=== PATIENT | male | born 1925 | race Caucasian/White ===

== ENCOUNTER 2016-10-28 09:28 | Emergency (ER) | payer MEDICARE, OTHER ==
[~2016-10-28] VITALS: Ht 152.4 cm; Wt 67.0 kg
[~2016-10-28 09:28] MED LIST: COUM1TAB PO; DILA100C PO; LISI-360 PO; OMEP20TA PO; SIMV40TA PO
[2016-10-28 09:36] VITALS: BP 134/87; PULSE 85; RESP 18; TEMP 97.8; O2SAT 97
[2016-10-28] MEDS ORDERED: SODIUM CHLORIDE 0.9% FLUSH 5 ML FLUSH IVF PRN (09:45)
[2016-10-28] MEDS ORDERED: LISI10TA3 PO (09:49)
[2016-10-28] MEDS ORDERED: COUM4TAB PO (09:50)
[2016-10-28] MEDS ORDERED: ZOCO40TA PO (09:50)
[2016-10-28] MEDS ORDERED: DILA100C PO (09:50)
[2016-10-28] MEDS ORDERED: OMEP20TA PO (09:50)
--- NOTE | 2016-10-28 10:19 | RADHPO ---
EXAM DATE/TIME: 10/28/2016 09:59 [facility] COMPARISON: No previous studies available for comparison. INDICATIONS : Proximal left humerus pain post fall. MEDICAL HISTORY : Carcinoma, colon. Hypertension. Seizures. Hernia. Ulcer. Diverticulitis. GERD. Arthritis. SURGICAL HISTORY : Tonsillectomy. Pacemaker. Cholecystectomy. Appendectomy. Partial gastrectomy. Cardiac catheterization . ENCOUNTER: Initial ACUITY: 4 - 6 days PAIN SCORE: 3/10 LOCATION: Left proximal humerus FINDINGS: Two view examination of the left humerus demonstrates no evidence of fracture or dislocation. Bony m ineralization is normal. The soft tissue structures are intact. There is chronic deformity of the le ft sixth rib. CONCLUSION: No acute fracture or dislocation. Luis Manuel Slaughter MD on October 28, 2016 at 10:16 Board Certified Radiologist. This report was verified electronically.
[2016-10-28 10:28] LABS: AUTOMATED NEUTROPHIL # 2.8 TH/MM3 (1.8-7.7); BASOPHIL % 0.7 % (0.0-2.0); EOSINOPHIL # 0.5 TH/MM3 (0-0.4); EOSINOPHIL % 11.9 % (0.0-4.0); HEMATOCRIT 38.1 % (39.0-51.0); HEMO FLAGS DIFF FINAL; LYMPH % 20.3 % (9.0-44.0); LYMPHOCYTE # 0.9 TH/MM3 (1.0-4.8); MEAN CELL VOLUME 95.9 FL (80.0-100.0); MEAN CORPUSCULAR HEMOGLOBIN 32.5 PG (27.0-34.0); MEAN CORPUSCULAR HGB CONC 33.9 % (32.0-36.0); MONO % 9.8 % (0.0-8.0); NEUT % 57.3 % (16.0-70.0); PLATELET COUNT 165 TH/MM3 (150-450); RED BLOOD COUNT 3.98 MIL/MM3 (4.50-5.90); RED CELL DISTRIBUTION WIDTH 13.3 % (11.6-17.2); WHITE BLOOD COUNT 4.6 TH/MM3 (4.0-11.0)
--- NOTE | 2016-10-28 10:28 | RADHPO ---
EXAM DATE/TIME: 10/28/2016 10:07 [facility] COMPARISON: CT BRAIN W/O CONTRAST, December 28, 2015, 12:02. INDICATIONS : Fell and hit chin area. RADIATION DOSE: 59.57 CTDIvol (mGy) MEDICAL HISTORY : Cardiovascular disease. Hypertension. SURGICAL HISTORY : Tonsillectomy. Pacemaker. ENCOUNTER: Initial ACUITY: 4 - 6 days PAIN SCALE: 3/10 LOCATION: cranial TECHNIQUE: Multiple contiguous axial images were obtained of the head. Using automated exposure control and adj ustment of the mA and/or kV according to patient size, radiation dose was kept as low as reasonably a chievable to obtain optimal diagnostic quality images. FINDINGS: CEREBRUM: The ventricles are normal for age. No evidence of midline shift, mass lesion, hemorrhage or acute in farction. No extra-axial fluid collections are seen. POSTERIOR FOSSA: The cerebellum and brainstem are intact. The 4th ventricle is midline. The cerebellopontine angle i s unremarkable. EXTRACRANIAL: The visualized portion of the orbits is intact. SKULL: The calvaria is intact. No evidence of skull fracture. CONCLUSION: Normal examination. Thomas Sharma MD on October 28, 2016 at 10:27 Board Certified Radiologist. This report was verified electronically.
--- NOTE | 2016-10-28 10:30 | PD ---
HPI Chief Complaint: Fall Time Seen by Provider: 09:39 Travel History International Travel<30 days: No Contact w/Intl Traveler<30days: No Traveled to known affect area: No History of Present Illness HPI 89-year-old male presents status post trip and fall on Thursday night at 10 PM when he was trying to find his car. He states that he hit his left shoulder, chin and head but did not lose consciousness. He states he still has pain to those areas. He states he is on a blood thinner and thinks it's Coumadin but is not sure. He denies other concurrent complaints. Pain is worse with movement. Severity is moderate. Quality no loss of consciousness. This was from standing position. 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 THINGS) Diminished Hearing: No Diverticulitis: Yes Endocrine: No Gastrointestinal Disorders: Yes (?HERNIA L SIDE OF ABD) GERD: Yes Genitourinary: No Hiatal Hernia: No Hypertension: Yes Immune Disorder: No Implanted Vascular Access Dvce: Yes Kidney Stones: No Musculoskeletal: No Neurologic: Yes (seizure) Psychiatric: No Reproductive: No Respiratory: No Immunizations Current: Yes Migraines: No Radiation Therapy: No Renal Failure: No Seizures: Yes Sickle Cell Disease: No Sleep Apnea: No Ulcer: Yes Past Surgical History Abdominal Surgery: Yes (partial gastrectomy) AICD: No Appendectomy: Yes Arteriovenous Shunt: No Cardiac Surgery: Yes (Pacemaker) Cholecystectomy: Yes Ear Surgery: No Endocrine Surgery: No Eye Surgery: Yes (Cataract surgery) Genitourinary Surgery: No Gynecologic Surgery: No Insulin Pump: No Joint Replacement: No Oral Surgery: No Pacemaker: Yes Thoracic Surgery: No Tonsillectomy: Yes Other Surgery: Yes Social History Alcohol Use: No Tobacco Use: No (FORMER) Substance Use: No Allergies-Medications (Allergen,Severity, Reaction): Coded Allergies: Phenergan (Verified Allergy, Unknown, Unknown, 10/28/16) Reported Meds & Prescriptions Reported Meds & Active Scripts Active Reported Coumadin (Warfarin) 4 Mg Tab 4 Mg PO DAILY Zocor (Simvastatin) 40 Mg Tab 40 Mg PO DAILY Dilantin (Phenytoin Extended) 100 Mg Cap 200 Mg PO BID Omeprazole 20 Mg Tab 20 Mg PO DAILY Lisinopril 10 Mg Tab 10 Mg PO DAILY Review of Systems Except as stated in HPI: all other systems reviewed are Neg Physical Exam Narrative General: 89 y/o patient in no apparent distress Skin: trauma noted to left shoulder area with ecchymosis, abrasion to chin Eyes: Pupils equal ENT: no septal hematoma NECK: no pain with palpation and range of motion in midline Cardiovascular: Regular rate and rhythm Respiratory: Normal respiratory effort noted, clear to auscultation bilaterally Abdomen: soft, nontender, nondistended Back: No step-offs, midline spine nontender with palpation Extremities: Pain with palpation of left shoulder, no lacerations over, neurovascularly intact, no pain with rom of other joints Neuro: awake, alert, sensation and motor grossly intact Data Data Last Documented VS Vital Signs Date Time Temp Pulse Resp B/P Pulse Ox O2 Delivery O2 Flow Rate FiO2 10/28/16 12:10 81 17 100/69 93 Room Air 10/28/16 09:36 97.8 Orders Humerus (Min 2vws) (10/28/16 ) Complete Blood Count With Diff (10/28/16 09:45) Prothrombin Time / Inr (Pt) (10/28/16 09:45) Act Partial Throm Time (Ptt) (10/28/16 09:45) Ct Brain W/O Iv Contrast(Rout) (10/28/16 09:45) Ct Facial Bones W/O Iv Cont (10/28/16 09:45) Iv Access Insert/Monitor (10/28/16 09:45) Sodium Chloride 0.9% Flush (Ns Flush) (10/28/16 09:45) Chest, Single Ap (10/28/16 ) Labs Laboratory Tests Test 10/28/16 10:23 White Blood Count 4.6 TH/MM3 Red Blood Count 3.98 MIL/MM3 Hemoglobin 12.9 GM/DL Hematocrit 38.1 % Mean Corpuscular Volume 95.9 FL Mean Corpuscular Hemoglobin 32.5 PG Mean Corpuscular Hemoglobin 33.9 % Concent Red Cell Distribution Width 13.3 % Platelet Count 165 TH/MM3 Mean Platelet Volume 6.8 FL Neutrophils (%) (Auto) 57.3 % Lymphocytes (%) (Auto) 20.3 % Monocytes (%) (Auto) 9.8 % Eosinophils (%) (Auto) 11.9 % Basophils (%) (Auto) 0.7 % Neutrophils # (Auto) 2.8 TH/MM3 Lymphocytes # (Auto) 0.9 TH/MM3 Monocytes # (Auto) 0.4 TH/MM3 Eosinophils # (Auto) 0.5 TH/MM3 Basophils # (Auto) 0.0 TH/MM3 CBC Comment DIFF FINAL Differential Comment Prothrombin Time 10.7 SEC Prothromb Time International 1.0 RATIO Ratio Activated Partial 25.8 SEC Thromboplast Time MDM Medical Decision Making Medical Screen Exam Complete: Yes Emergency Medical Condition: Yes Medical Record Reviewed: Yes (past history confirmed) Interpretation(s) CBC & BMP Diagram 10/28/16 10:23 Last [address] 10/28/16 0945 Signed Impressions: Service Date/Time: Friday, October 28, 2016 10:07 - CONCLUSION: Normal examination. Mild sinus disease in the right maxillary sinus Thomas Sharma MD Head CT 10/28/16 0945 Signed Impressions: Service Date/Time: Friday, October 28, 2016 10:07 - CONCLUSION: Normal examination. Thomas Sharma MD Humerus X-Ray 10/28/16 0000 Signed Impressions: Service Date/Time: Friday, October 28, 2016 09:59 - CONCLUSION: No acute fracture or dislocation. Luis Manuel Slaughter MD Chest X-Ray 10/28/16 0000 Signed Impressions: Service Date/Time: Friday, October 28, 2016 11:21 - CONCLUSION: Mild bibasilar atelectasis versus scarring. Luis Manuel Slaughter MD inr is low but states remembers blood thinner is not Coumadin but does not remember the name-advised to discuss this with his primary physician Differential Diagnosis Fracture, strain, sprain Narrative Course Will check hemoglobin and coags given unknown blood thinner and check trauma imaging and reevaluate ed workup no acute, Patient denies any new complaints and states that they are feeling better. Patient happy with care, all questions answered. Patient knows that follow up is incumbent on them and to return to the emergency room immediately if new or worsening symptoms develop. Patient given strict return precautions, vitals reviewed and are normal, agrees to further workup as an outpatient. Diagnosis Primary Impression: Left shoulder strain Qualified Code: S46.912A - Left shoulder strain, initial encounter Additional Impressions: Chin abrasion, non-infected Fall Qualified Code: W19.XXXA - Fall, initial encounter Patient Instructions: General Instructions Additional Instructions: tylenol as needed, follow with primary, return as needed Med/Other Pt SpecificInfo: No Change to Meds Disposition: 01 DISCHARGE HOME Condition: Stable Desire Calhoun MD Oct 28, 2016 10:30
--- NOTE | 2016-10-28 10:34 | RADHPO ---
EXAM DATE/TIME: 10/28/2016 10:07 [facility] COMPARISON: No previous studies available for comparison. INDICATIONS : Fell and hit chin area. RADIATION DOSE: 34.90 CTDIvol (mGy) MEDICAL HISTORY : Cardiovascular disease. Hypertension. SURGICAL HISTORY : Pacemaker. Tonsillectomy. ENCOUNTER: Initial ACUITY: 4 - 6 days PAIN SCORE: 3/10 LOCATION: facial TECHNIQUE: Volumetric scanning of the facial bones was performed. Using automated exposure control and adjustme nt of the mA and/or kV according to patient size, radiation dose was kept as low as reasonably achiev able to obtain optimal diagnostic quality images. FINDINGS: ORBITS: The orbital and infraorbital osseous structures are intact. The retroconal structures have a normal configuration. No radiopaque foreign bodies are seen. NASAL BONE: The nasal bone and maxillary spine are intact ZYGOMATIC ARCHES: Symmetric without evidence of fracture. SINUSES: The maxillary, ethmoid and frontal sinuses are intact. No air-fluid levels seen. Mild mucoperiosteal thickening in multiple sinuses NASAL CAVITY: The nasal septum is intact and midline. The lacrimal ducts are intact. SOFT TISSUES: No radiopaque foreign bodies seen. No soft-tissue swelling is seen. INTRACRANIAL: No intracranial air seen. CRIBIFORM PLATE: Grossly intact. CONCLUSION: Normal examination. Mild sinus disease in the right maxillary sinus Thomas Sharma MD on October 28, 2016 at 10:32 Board Certified Radiologist. This report was verified electronically.
[2016-10-28 10:41] LABS: APTT (PATIENT) 25.8 SEC (24.3-30.1); PROTHROMBIN TIME - PATIENT 10.7 SEC (9.8-11.6)
--- NOTE | 2016-10-28 11:49 | RADHPO ---
EXAM DATE/TIME: 10/28/2016 11:21 [facility] COMPARISON: No previous studies available for comparison. INDICATIONS : Evaluate lung status. Patient fell. MEDICAL HISTORY : Cardiovascular disease. Hypertension. SURGICAL HISTORY : Pacemaker. Tonsillectomy. ENCOUNTER: Initial ACUITY: 4 - 6 days PAIN SCORE: 0/10 LOCATION: Bilateral chest FINDINGS: A single view of the chest demonstrates the lungs to be symmetrically aerated without evidence of mas s, infiltrate or effusion. There is a mild atelectasis versus scarring in the lung bases. There is a chronic deformity involving the left sixth rib. There is no evidence of pneumothorax. Bony structure s are grossly intact. There is a pacemaker overlying the right chest. The cardiomediastinal contours are unremarkable. Osseous structures are intact. CONCLUSION: Mild bibasilar atelectasis versus scarring. Luis Manuel Slaughter MD on October 28, 2016 at 11:47 Board Certified Radiologist. This report was verified electronically.
[2016-10-28 12:10] VITALS: BP 100/69; PULSE 81; RESP 17; O2SAT 93
== END 2016-10-28 12:21 | disposition home or self-care (01) ==
LOC: PHED 09:28
DX: S46.912A Strain of unspecified muscle, fascia and tendon at shoulder and upper arm level, left arm, initial encounter (principal); S00.81XA Abrasion of other part of head, initial encounter; I10 Essential (primary) hypertension; Z79.01 Long term (current) use of anticoagulants; Z86.2 Personal history of diseases of the blood and blood-forming organs and certain disorders involving the immune mechanism; Z87.39 Personal history of other diseases of the musculoskeletal system and connective tissue; Z86.79 Personal history of other diseases of the circulatory system; Z85.038 Personal history of other malignant neoplasm of large intestine; Z87.19 Personal history of other diseases of the digestive system; Z86.69 Personal history of other diseases of the nervous system and sense organs; Z87.891 Personal history of nicotine dependence; W01.0XXA Fall on same level from slipping, tripping and stumbling without subsequent striking against object, initial encounter
CPT/HCPCS: 70450; 70486; 71010; 73060; 85025; 85610; 85730

== ENCOUNTER 2017-03-29 11:59 | Inpatient (IN) | payer OTHER, MEDICARE ==
[2017-03-29] VITALS (8 sets, daily range): BP systolic 120–161; BP diastolic 67–95; PULSE 87–106; RESP 16–20; TEMP 98–100.2; O2SAT 90–95
[~2017-03-29] VITALS: Ht 157.5 cm; Wt 66.8 kg
[~2017-03-29 11:59] MED LIST changes: -COUM1TAB PO; +COUM4TAB PO; -LISI-360 PO; +LISI10TA3 PO; -SIMV40TA PO; +ZOCO40TA PO
[2017-03-29] MEDS ORDERED: SODIUM CHLOR 0.9% 1000 ML INJ 1,000 ML IV SCH (12:02)
--- NOTE | 2017-03-29 12:13 | PD ---
HPI Chief Complaint: GI symptoms Time Seen by Provider: 12:02 Travel History International Travel<30 days: No Contact w/Intl Traveler<30days: No Traveled to known affect area: No History of Present Illness HPI 89-year-old male complaining of abdominal pain with nausea vomiting. Patient states that the symptoms started last night. Patient states the abdominal pain diffuse cramping pain over the abdomen. Patient denies any pain radiation. Patient states that he has intermittent nausea vomiting since last night. Patient denies any diarrhea. Patient denies any dysuria or frequency. Patient complains of abdominal bloating. 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 Patient states that he has history hypertension and history of seizure. Patient also has history of atrial fibrillation, on Coumadin, status post pacemaker placement, partial gastrectomy secondary to bleeding ulcer, chronic anemia, hyperlipidemia and early dementia. On a scale of 1-10 the pain is an 8. 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 THINGS) Diminished Hearing: No Diverticulitis: Yes Endocrine: No Gastrointestinal Disorders: Yes (?HERNIA L SIDE OF ABD) GERD: Yes Genitourinary: No Hiatal Hernia: No Hypertension: Yes Immune Disorder: No Implanted Vascular Access Dvce: Yes Kidney Stones: No Musculoskeletal: No Neurologic: Yes (seizure) Psychiatric: No Reproductive: No Respiratory: No Immunizations Current: Yes Migraines: No Radiation Therapy: No Renal Failure: No Seizures: Yes Sickle Cell Disease: No Sleep Apnea: No Ulcer: Yes Past Surgical History Abdominal Surgery: Yes (partial gastrectomy) AICD: No Appendectomy: Yes Arteriovenous Shunt: No Cardiac Surgery: Yes (Pacemaker) Cholecystectomy: Yes Ear Surgery: No Endocrine Surgery: No Eye Surgery: Yes (Cataract surgery) Genitourinary Surgery: No Gynecologic Surgery: No Insulin Pump: No Joint Replacement: No Oral Surgery: No Pacemaker: Yes Thoracic Surgery: No Tonsillectomy: Yes Other Surgery: Yes Social History Alcohol Use: No Tobacco Use: No (FORMER) Substance Use: No Allergies-Medications (Allergen,Severity, Reaction): Coded Allergies: Phenergan (Verified Allergy, Unknown, Unknown, 03/29/17) Reported Meds & Prescriptions Reported Meds & Active Scripts Active Reported Zocor (Simvastatin) 40 Mg Tab 40 Mg PO DAILY Dilantin (Phenytoin Extended) 100 Mg Cap 200 Mg PO BID Omeprazole 20 Mg Tab 20 Mg PO DAILY Lisinopril 10 Mg Tab 10 Mg PO DAILY Review of Systems General / Constitutional: No: Fever Eyes: No: Visual changes HENT: No: Headaches Cardiovascular: No: Chest Pain or Discomfort Respiratory: No: Shortness of Breath Gastrointestinal: Positive: Nausea, Vomiting, Abdominal Pain Genitourinary: No: Dysuria Musculoskeletal: No: Pain Skin: No Rash Neurologic: No: Weakness Psychiatric: No: Depression Endocrine: No: Polydipsia Hematologic/Lymphatic: No: Easy Bruising Physical Exam Narrative GENERAL: Well-nourished, well-developed patient. SKIN: Focused skin assessment warm/dry. HEAD: Normocephalic. EYES: No scleral icterus. No injection or drainage. NECK: Supple, trachea midline. No JVD or lymphadenopathy. CARDIOVASCULAR: Regular rate and rhythm without murmurs, gallops, or rubs. RESPIRATORY: Breath sounds equal bilaterally. No accessory muscle use. GASTROINTESTINAL: Abdomen mildly distended. Active bowel sounds. Patient has moderate diffuse tenderness over the abdomen. No rebound tenderness. No mass. MUSCULOSKELETAL: No cyanosis, or edema. BACK: Nontender without obvious deformity. No CVA tenderness. Neurologic exam normal. Data Data Last Documented VS Vital Signs Date Time Temp Pulse Resp B/P Pulse Ox O2 Delivery O2 Flow Rate FiO2 03/29/17 13:37 92 16 125/70 94 03/29/17 12:00 98.0 Orders Complete Blood Count With Diff (03/29/17 12:02) Comprehensive Metabolic Panel (03/29/17 12:02) Lipase (03/29/17 12:02) Prothrombin Time / Inr (Pt) (03/29/17 12:02) Act Partial Throm Time (Ptt) (03/29/17 12:02) Urinalysis - C+S If Indicated (03/29/17 12:02) Ct Abd/Pel W Iv Contrast(Rout) (03/29/17 12:02) Iv Access Insert/Monitor (03/29/17 12:02) Ecg Monitoring (03/29/17 12:02) Oximetry (03/29/17 12:02) Morphine Inj (Morphine Inj) (03/29/17 12:15) Ondansetron Inj (Zofran Inj) (03/29/17 12:15) Pantoprazole Inj (Protonix Inj) (03/29/17 12:15) Sodium Chlor 0.9% 1000 Ml Inj (Ns 1000 M (03/29/17 12:02) Electrocardiogram (03/29/17 12:02) Morphine Inj (Morphine Inj) (03/29/17 12:45) Iohexol 350 Inj (Omnipaque 350 Inj) (03/29/17 13:21) Labs Laboratory Tests Test 03/29/17 12:25 White Blood Count 10.2 TH/MM3 Red Blood Count 4.48 MIL/MM3 Hemoglobin 14.5 GM/DL Hematocrit 42.4 % Mean Corpuscular Volume 94.6 FL Mean Corpuscular Hemoglobin 32.4 PG Mean Corpuscular Hemoglobin 34.3 % Concent Red Cell Distribution Width 12.9 % Platelet Count 155 TH/MM3 Mean Platelet Volume 7.9 FL Neutrophils (%) (Auto) 84.9 % Lymphocytes (%) (Auto) 6.7 % Monocytes (%) (Auto) 7.8 % Eosinophils (%) (Auto) 0.3 % Basophils (%) (Auto) 0.3 % Neutrophils # (Auto) 8.7 TH/MM3 Lymphocytes # (Auto) 0.7 TH/MM3 Monocytes # (Auto) 0.8 TH/MM3 Eosinophils # (Auto) 0.0 TH/MM3 Basophils # (Auto) 0.0 TH/MM3 CBC Comment DIFF FINAL Differential Comment Prothrombin Time 10.7 SEC Prothromb Time International 1.0 RATIO Ratio Activated Partial 24.3 SEC Thromboplast Time Sodium Level 140 MEQ/L Potassium Level 4.2 MEQ/L Chloride Level 103 MEQ/L Carbon Dioxide Level 25.4 MEQ/L Anion Gap 12 MEQ/L Blood Urea Nitrogen 33 MG/DL Creatinine 0.80 MG/DL Estimat Glomerular Filtration 91 ML/MIN Rate Random Glucose 174 MG/DL Calcium Level 9.3 MG/DL Total Bilirubin 0.5 MG/DL Aspartate Amino Transf 31 U/L (AST/SGOT) Alanine Aminotransferase 48 U/L (ALT/SGPT) Alkaline Phosphatase 184 U/L Total Protein 8.0 GM/DL Albumin 3.9 GM/DL Lipase 56 U/L MDM Medical Decision Making Medical Screen Exam Complete: Yes Emergency Medical Condition: Yes Interpretation(s) Last Impressions Abdomen/Pelvis CT 03/29/17 1202 Signed Impressions: Service Date/Time: Wednesday, March 29, 2017 13:05 - CONCLUSION: 1. Dilatation of multiple proximal small bowel loops with distal decompression characteristic of a small bowel obstruction. There is some fecalization of small bowel contents proximal to the obstruction. 2. Partial colectomy on the right. Colonic diverticulosis without diverticulitis. 3. Postoperative cholecystectomy with residual biliary ductal dilatation similar to 2016. 4. Patchy airspace disease at the lung bases. Andrae Kay MD 1352 PM. CBC WBC 10.2. Hemoglobin 14.5 hematocrit 42.4. 84 neutrophil. CMP within normal limit. BUN 33. Glucose 174. Alkaline phosphatase 184. Differential Diagnosis Differential diagnosis including gastritis, PUD, pancreatitis, colitis, UTI, pyelonephritis, nephrolithiasis, bowel obstruction. Narrative Course 89-year-old male with abdominal pain, nausea vomiting. Normal saline solution 1 25 cc an hour. Morphine 2 mg IV. Zofran 4 mg IV. Protonix 40 mg IV. Diagnosis Primary Impression: Small bowel obstruction Admitting Information Admitting Physician Requests: Admit Nicholas Workman MD Mar 29, 2017 12:13
[2017-03-29] MEDS ORDERED: MORPHINE SULFATE 4 MG/ML INJ IV PUSH ONE (12:15)
[2017-03-29] MEDS ORDERED: ONDANSETRON HCL 4 MG/2 ML VIAL IVP ONE (12:15)
[2017-03-29] MEDS ORDERED: PANTOPRAZOLE SODIUM 40 MG VIAL IVP ONE (12:15)
[2017-03-29 12:42] LABS: AUTOMATED NEUTROPHIL # 8.7 TH/MM3 (1.8-7.7); BASOPHIL % 0.3 % (0.0-2.0); EOSINOPHIL % 0.3 % (0.0-4.0); HEMATOCRIT 42.4 % (39.0-51.0); HEMO FLAGS DIFF FINAL; LYMPH % 6.7 % (9.0-44.0); LYMPHOCYTE # 0.7 TH/MM3 (1.0-4.8); MEAN CELL VOLUME 94.6 FL (80.0-100.0); MEAN CORPUSCULAR HEMOGLOBIN 32.4 PG (27.0-34.0); MEAN CORPUSCULAR HGB CONC 34.3 % (32.0-36.0); MONO % 7.8 % (0.0-8.0); NEUT % 84.9 % (16.0-70.0); PLATELET COUNT 155 TH/MM3 (150-450); RED BLOOD COUNT 4.48 MIL/MM3 (4.50-5.90); RED CELL DISTRIBUTION WIDTH 12.9 % (11.6-17.2); WHITE BLOOD COUNT 10.2 TH/MM3 (4.0-11.0)
[2017-03-29] MEDS ORDERED: MORPHINE SULFATE 8 MG/ML INJ IV PUSH ONE (12:45)
[2017-03-29 12:53] LABS: CHLORIDE 103 MEQ/L (98-107); POTASSIUM 4.2 MEQ/L (3.5-5.1); SODIUM (NA) 140 MEQ/L (136-145)
[2017-03-29 12:57] LABS: ANION GAP 12 MEQ/L (5-15); BICARBONATE 25.4 MEQ/L (21.0-32.0); BLOOD UREA NITROGEN 33 MG/DL (7-18)
[2017-03-29 12:58] LABS: APTT (PATIENT) 24.3 SEC (24.3-30.1); PROTHROMBIN TIME - PATIENT 10.7 SEC (9.8-11.6)
[2017-03-29 13:00] LABS: ALT (GPT) 48 U/L (12-78); AST (GOT) 31 U/L (15-37); GLOMERULAR FILTRATION RATE 91 ML/MIN (>89)
[2017-03-29 13:01] LABS: TOTAL BILIRUBIN ADULT 0.5 MG/DL (0.2-1.0)
[2017-03-29 13:03] LABS: ALKALINE PHOSPHATASE 184 U/L (45-117)
[2017-03-29] MEDS ORDERED: IOHEXOL 350 MG/ML 10 ML VIAL (for RAD DIAG) IV ONE (13:21)
--- NOTE | 2017-03-29 13:32 | RADRPT ---
EXAM DATE/TIME: 03/29/2017 13:05 [facility] COMPARISON: No previous studies available for comparison. INDICATIONS : Abdominal distention and pain. IV CONTRAST: 85 cc Omnipaque 350 (iohexol) IV ORAL CONTRAST: No oral contrast ingested. RADIATION DOSE: 8.87 CTDIvol (mGy) MEDICAL HISTORY : Cardiovascular disease. Gastroesophageal reflux disease. Carcinoma, prostate.Hypertension. SURGICAL HISTORY : Pacemaker. Cholecystectomy. ENCOUNTER: Initial ACUITY: 2 days PAIN SCALE: 3/10 LOCATION: abdomen TECHNIQUE: Volumetric scanning of the abdomen and pelvis was performed. Using automated exposure control and ad justment of the mA and/or kV according to patient size, radiation dose was kept as low as reasonably achievable to obtain optimal diagnostic quality images. DICOM format image data is available electro nically for review and comparison. FINDINGS: There is patchy ground glass opacity right lung base characteristic of a mild bronchopneumonia or asp iration. There is dilatation of multiple proximal small bowel loops to between 4 and 5 cm. Distal small bowel is decompressed. There is partial colectomy on the right side. Colonic diverticulosis present on the left, especially sigmoid without diverticulitis. Mild fatty liver. The spleen, adrenals, kidneys and pancreas demonstrate no acute findings. Previous cholecystectomy with common bile duct measuring up to 15 mm similar to April 2016. CONCLUSION: 1. Dilatation of multiple proximal small bowel loops with distal decompression characteristic of a sm all bowel obstruction. There is some fecalization of small bowel contents proximal to the obstruction . 2. Partial colectomy on the right. Colonic diverticulosis without diverticulitis. 3. Postoperative cholecystectomy with residual biliary ductal dilatation similar to 2016. 4. Patchy airspace disease at the lung bases. Andrae Kay MD on March 29, 2017 at 13:23 Board Certified Radiologist. This report was verified electronically.
[2017-03-29] MEDS ORDERED: BISACODYL 10 MG SUPP RECTAL PRN (14:15)
[2017-03-29] MEDS ORDERED: LACTULOSE SYRUP 20 GM/30 ML CUP PO PRN (14:15)
[2017-03-29] MEDS ORDERED: NALOXONE HCL 0.4 MG/ML AMP IV PRN (14:15)
[2017-03-29] MEDS ORDERED: SENNOSIDES 8.6 MG TAB PO PRN (14:15)
[2017-03-29] MEDS ORDERED: SODIUM CHLORIDE 0.9% FLUSH 10 ML FLUSH IV FLUSH PRN (14:15)
[2017-03-29] MEDS ORDERED: MAGNESIUM HYDROXIDE SUSP 30 ML CUP PO PRN (14:15)
[2017-03-29] MEDS: SODIUM CHLOR 0.9% 1000 ML INJ 1,000 ML IV SCH ×2 (14:49→22:25)
--- NOTE | 2017-03-29 15:01 | HHI.HP ---
[facility] Service [facility] Primary Care Physician [facility] Admission Diagnosis small bowel obstruction Diagnoses: Chief Complaint: Abdominal pain, nausea, vomiting. Travel History International Travel<30 Days: No Contact w/Intl Traveler <30 Da: No Traveled to Known Affected Are: No History of Present Illness Mr. Banks is a pleasant 89-year-old male with a history of partial gastrectomy, bowel resection who presents to the emergency department on 2016 due to abdominal pain, nausea and vomiting. He started having diffuse cramping abdominal pain last night. No radiation of abdominal pain. No diarrhea but he reports intermittent nausea and vomiting. No chest pain, shortness of breath, fever or chills. No dysuria. At the time of this interview , patient complains of abdominal pain and nausea. Review of Systems Except as stated in HPI: all other systems reviewed are Neg Past Family Social History Past Medical History Colon cancer Seizure disorder Hypertension Past Surgical History Partial gastrectomy, bowel resection, pacemaker placement, cataract surgery, tonsillectomy. Reported Medications Zocor (Simvastatin) 40 Mg Tab 40 Mg PO DAILY Dilantin (Phenytoin Extended) 100 Mg Cap 200 Mg PO BID Omeprazole 20 Mg Tab 20 Mg PO DAILY Lisinopril 10 Mg Tab 10 Mg PO DAILY Allergies: Coded Allergies: Phenergan (Verified Allergy, Unknown, Unknown, 03/29/17) Family History No family history of Alzheimer's or Parkinson's. Social History No current use of tobacco, alcohol or illicit drugs. He is a former smoker. Physical Exam Vital Signs Vital Signs Date Time Temp Pulse Resp B/P Pulse Ox O2 Delivery O2 Flow Rate FiO2 03/29/17 14:20 95 03/29/17 13:37 92 16 125/70 94 03/29/17 12:49 94 16 145/78 94 03/29/17 12:00 98.0 106 18 148/95 95 Physical Exam GENERAL: This is a well-nourished, well-developed patient, in no apparent distress. SKIN: No rashes, ecchymoses or lesions. Warm and dry. HEAD: Atraumatic. Normocephalic. No temporal or scalp tenderness. EYES: Pupils equal round and reactive. No injection or drainage. ENT: Nose without bleeding, purulent drainage or septal hematoma. Airway patent. NECK: Trachea midline. No lymphadenopathy. Supple, nontender, no meningeal signs. CARDIOVASCULAR: Regular rate and rhythm without murmurs, gallops, or rubs. No JVD. RESPIRATORY: Clear to auscultation. Breath sounds equal bilaterally. No wheezes , rales, or rhonchi. GASTROINTESTINAL: Abdomen soft, nondistended. No guarding. Diffuse abdominal pain. BS+ MUSCULOSKELETAL: Extremities without clubbing, cyanosis, or edema. NEUROLOGICAL: Awake and alert. Cranial nerves II through XII intact. No focal neurological deficits. Normal speech. Laboratory Laboratory Tests Test 03/29/17 12:25 White Blood Count 10.2 Red Blood Count 4.48 Hemoglobin 14.5 Hematocrit 42.4 Mean Corpuscular Volume 94.6 Mean Corpuscular Hemoglobin 32.4 Mean Corpuscular Hemoglobin 34.3 Concent Red Cell Distribution Width 12.9 Platelet Count 155 Mean Platelet Volume 7.9 Neutrophils (%) (Auto) 84.9 Lymphocytes (%) (Auto) 6.7 Monocytes (%) (Auto) 7.8 Eosinophils (%) (Auto) 0.3 Basophils (%) (Auto) 0.3 Neutrophils # (Auto) 8.7 Lymphocytes # (Auto) 0.7 Monocytes # (Auto) 0.8 Eosinophils # (Auto) 0.0 Basophils # (Auto) 0.0 CBC Comment DIFF FINAL Differential Comment Prothrombin Time 10.7 Prothromb Time International 1.0 Ratio Activated Partial 24.3 Thromboplast Time Sodium Level 140 Potassium Level 4.2 Chloride Level 103 Carbon Dioxide Level 25.4 Anion Gap 12 Blood Urea Nitrogen 33 Creatinine 0.80 Estimat Glomerular Filtration 91 Rate Random Glucose 174 Calcium Level 9.3 Total Bilirubin 0.5 Aspartate Amino Transf 31 (AST/SGOT) Alanine Aminotransferase 48 (ALT/SGPT) Alkaline Phosphatase 184 Total Protein 8.0 Albumin 3.9 Lipase 56 Result Diagram: 03/29/17 1225 03/29/17 1225 Imaging Last Impressions Abdomen/Pelvis CT 03/29/17 1202 Signed Impressions: Service Date/Time: Wednesday, March 29, 2017 13:05 - CONCLUSION: 1. Dilatation of multiple proximal small bowel loops with distal decompression characteristic of a small bowel obstruction. There is some fecalization of small bowel contents proximal to the obstruction. 2. Partial colectomy on the right. Colonic diverticulosis without diverticulitis. 3. Postoperative cholecystectomy with residual biliary ductal dilatation similar to 2016. 4. Patchy airspace disease at the lung bases. Andrae Kay MD Assessment and Plan Problem List: (1) Small bowel obstruction ICD Code: K56.69 Status: Acute (2) Hypertension ICD Code: I10 Status: Acute (3) Seizure disorder ICD Code: G40.909 Status: Acute Assessment and Plan Mr. Banks is a pleasant 89 year old male with a history of subtotal gastrectomy who presents to the ED due to diffuse abdominal pain, nausea, vomiting that started last night. He denies any fever, chills. His last BM was two days ago. He reports no flatus. CT abd/pelvis shows multiple proximal small bowel dilatation indicating small bowel obstruction. - Small bowel obstruction - Continue nothing by mouth status. If nausea vomiting continues, we'll consider NG tube placement. - If symptoms are not improved, consider small bowel follow-through with Gastrografin in the morning. - General surgery consult pending. - Continue normal saline at 100 cc per hour. - Acetaminophen for pain 1-4 and morphine for pain 5-10. - Hypertension - continue lisinopril 10 mg daily. - Seizure disorder - continue phenytoin 200 mg twice a day. - Hyperlipidemia - Continue Pravastatin 80mg Qday. Full code. LUCIANs. Zulema Urbina DO Mar 29, 2017 3:01 pm
[2017-03-29] MEDS: ONDANSETRON HCL 4 MG/2 ML VIAL IVP PRN ×2 (15:31→20:09)
[2017-03-29] MEDS: MORPHINE SULFATE 8 MG/ML INJ IV PUSH PRN (17:47)
[2017-03-29] MEDS ORDERED: PROCHLORPERAZINE INJ 10 MG/2 ML VIAL IV PUSH PRN (18:45)
[2017-03-29] MEDS: DOCUSATE SODIUM 50 MG/SENNA 8.6 MG TAB PO SCH (20:09)
[2017-03-29] MEDS: PHENYTOIN SODIUM 100 MG CAP PO SCH (20:09)
[2017-03-29] MEDS: SODIUM CHLORIDE 0.9% FLUSH 10 ML FLUSH IV FLUSH SCH (20:13)
[2017-03-29 20:44] LABS: BLOOD, URINE NEG (NEG); GLUCOSE,URINE NEG (NEG); KETONE, URINE NEG (NEG); NITRITE,URINE NEG (NEG)
[2017-03-29 20:59] LABS: URINE COLOR YELLOW (YELLW/STRAW)
[2017-03-29 21:00] LABS: MUCUS URINE FEW /lpf (OCC)
[2017-03-29 21:01] LABS: COMMENT (UR) CULT NOT INDICATED; CULTURE IF INDICATED CULT NOT INDICATED; HYALINE CAST, URINE 0-2 /lpf (RARE); RBC, URINE 0-3 /hpf (0-3); SQUAMOUS EPITHELIAL CELL URINE 0-5 /hpf (0-5)
[2017-03-30] VITALS (8 sets, daily range): BP systolic 137–159; BP diastolic 82–88; PULSE 76–156; RESP 16–22; TEMP 96.2–102.1; O2SAT 87–96
[2017-03-30] MEDS: ONDANSETRON HCL 4 MG/2 ML VIAL IVP PRN ×2 (02:39→09:29)
[2017-03-30] MEDS: MORPHINE SULFATE 8 MG/ML INJ IV PUSH PRN ×2 (02:40→11:21)
[2017-03-30 06:38] LABS: AUTOMATED NEUTROPHIL # 6.5 TH/MM3 (1.8-7.7); BASOPHIL % 0.3 % (0.0-2.0); EOSINOPHIL # 0.1 TH/MM3 (0-0.4); EOSINOPHIL % 1.1 % (0.0-4.0); HEMATOCRIT 38.3 % (39.0-51.0); HEMO FLAGS DIFF FINAL; LYMPH % 8.8 % (9.0-44.0); LYMPHOCYTE # 0.7 TH/MM3 (1.0-4.8); MEAN CORPUSCULAR HEMOGLOBIN 32.5 PG (27.0-34.0); MEAN CORPUSCULAR HGB CONC 33.8 % (32.0-36.0); MONO % 8.2 % (0.0-8.0); NEUT % 81.6 % (16.0-70.0); PLATELET COUNT 133 TH/MM3 (150-450); RED BLOOD COUNT 3.99 MIL/MM3 (4.50-5.90); RED CELL DISTRIBUTION WIDTH 13.2 % (11.6-17.2)
[2017-03-30 07:01] LABS: BICARBONATE 27.8 MEQ/L (21.0-32.0)
[2017-03-30] MEDS: DOCUSATE SODIUM 50 MG/SENNA 8.6 MG TAB PO SCH ×2 (09:00→21:00)
[2017-03-30] MEDS: SODIUM CHLORIDE 0.9% FLUSH 10 ML FLUSH IV FLUSH SCH ×2 (09:00→20:05)
[2017-03-30] MEDS: PRAVASTATIN SOD 80 MG TAB PO SCH (09:22)
[2017-03-30] MEDS: PHENYTOIN SODIUM 100 MG CAP PO SCH ×2 (09:22→21:00)
[2017-03-30] MEDS: PANTOPRAZOLE SOD 20 MG DELAYED RELEASE TAB PO SCH (09:23)
[2017-03-30] MEDS: LISINOPRIL 10 MG TAB PO SCH (09:23)
[2017-03-30] MEDS: SODIUM CHLOR 0.9% 1000 ML INJ 1,000 ML IV SCH ×2 (09:24→21:07)
--- NOTE | 2017-03-30 09:57 | RADRPT ---
EXAM DATE/TIME: 03/30/2017 08:31 [facility] COMPARISON: CT ABDOMEN & PELVIS W CONTRAST, March 29, 2017, 13:05. INDICATIONS : Obstruction. Nausea. MEDICAL HISTORY : Cardiovascular disease. Gastroesophageal reflux disease. Carcinoma, prostate. Hypertension. SURGICAL HISTORY : Pacemaker. Cholecystectomy. ENCOUNTER: Subsequent ACUITY: 2 days PAIN SCORE: 2/10 LOCATION: Bilateral Abdomen FINDINGS: Pacer is noted. lung bases are clear. Minimal dilated proximal small bowel is evident. There is no free air. Distal small bowel is decompressed. Degenerative changes are seen in the lumbar spine. CONCLUSION: Nonspecific minimal dilatation of proximal small bowel when compared to distal. Similar was seen on the CT scan of 03/29/2017. Narciso Graf MD FACR on March 30, 2017 at 9:07 Board Certified Radiologist. This report was verified electronically.
[2017-03-30] MEDS ORDERED: DIATRIZOATE MEGLUM/DIATRIZOATE SOD 120 ML BTL (for RAD DIAG) NG ONE (10:00)
--- NOTE | 2017-03-30 10:06 | HHI.PR ---
Subjective Remarks Follow up for small bowel obstruction. Patient is doing better today. Abdominal pain is somewhat better. No fever, chills. Has not had any BM or flatus. Objective Vitals Vital Signs Date Time Temp Pulse Resp B/P Pulse Ox O2 Delivery O2 Flow Rate FiO2 03/30/17 08:00 98.1 85 16 137/82 91 03/30/17 08:00 96 21 03/30/17 04:58 03/30/17 00:18 98.2 76 16 138/87 91 03/29/17 20:37 98.9 87 18 161/91 90 03/29/17 20:00 92 21 03/29/17 17:52 18 03/29/17 16:00 100.2 97 20 120/83 93 03/29/17 14:55 82 16 132/67 95 03/29/17 14:20 95 03/29/17 13:37 92 16 125/70 94 03/29/17 12:49 94 16 145/78 94 03/29/17 12:00 98.0 106 18 148/95 95 I/O 03/29/17 03/29/17 03/29/17 03/30/17 03/30/17 03/30/17 07:00 15:00 23:00 07:00 15:00 23:00 Intake Total 1000 ml 738 ml Output Total 550 ml 300 ml Balance 1000 ml 738 ml -550 ml -300 ml Intake IV Total 1000 ml 738 ml Output Urine Total 550 ml 300 ml Result Diagram: 03/30/17 0530 03/30/17 0530 Imaging Last Impressions Abdomen/Pelvis CT 03/29/17 1202 Signed Impressions: Service Date/Time: Wednesday, March 29, 2017 13:05 - CONCLUSION: 1. Dilatation of multiple proximal small bowel loops with distal decompression characteristic of a small bowel obstruction. There is some fecalization of small bowel contents proximal to the obstruction. 2. Partial colectomy on the right. Colonic diverticulosis without diverticulitis. 3. Postoperative cholecystectomy with residual biliary ductal dilatation similar to 2016. 4. Patchy airspace disease at the lung bases. Andrae Kay MD Objective Remarks GENERAL: AOX3, NAD. SKIN: Warm and dry. HEAD: Normocephalic. EYES: No scleral icterus. No injection or drainage. NECK: Supple, trachea midline. No JVD or lymphadenopathy. CARDIOVASCULAR: Regular rate and rhythm without murmurs, gallops, or rubs. RESPIRATORY: Breath sounds equal bilaterally. No accessory muscle use. GASTROINTESTINAL: Abdomen firm, distended, mild tenderness on palpation. No appreciable bowel sound. MUSCULOSKELETAL: No cyanosis, or edema. BACK: Nontender without obvious deformity. No CVA tenderness. Procedures None. A/P Problem List: (1) Small bowel obstruction ICD Code: K56.69 Status: Acute (2) Hypertension ICD Code: I10 Status: Acute (3) Seizure disorder ICD Code: G40.909 Status: Acute Assessment and Plan Mr. Banks is a pleasant 89 year old male with a history of subtotal gastrectomy who presents to the ED due to diffuse abdominal pain, nausea, vomiting that started last night. He denies any fever, chills. His last BM was two days ago. He reports no flatus. CT abd/pelvis shows multiple proximal small bowel dilatation indicating small bowel obstruction. - Small bowel obstruction - Continue nothing by mouth status. If nausea vomiting continues, we'll consider NG tube placement. - Reviewed KUB by me on 03/30/2017 - shows small bowel dilatation. - Will obtain small bowel follow-through with Gastrografin this morning. - General surgery following. - Continue normal saline at 100 cc per hour. - Acetaminophen for pain 1-4 and morphine for pain 5-10. - Hypertension - continue lisinopril 10 mg daily. - Seizure disorder - continue phenytoin 200 mg twice a day. - Hyperlipidemia - Continue Pravastatin 80mg Qday. Full code. SCDs. Zulema Urbina DO Mar 30, 2017 10:06 am
[2017-03-30] MEDS ORDERED: PROCHLORPERAZINE INJ 10 MG/2 ML VIAL IV PUSH PRN (11:15)
--- NOTE | 2017-03-30 13:49 | HHI.PR ---
Subjective Subjective Notes vomiting with contrast given for sbft, no bm, no flatus Objective Vitals/I&O Vital Signs Date Time Temp Pulse Resp B/P Pulse Ox O2 Delivery O2 Flow Rate FiO2 03/30/17 12:00 96.2 104 20 144/88 91 03/30/17 08:00 21 Labs Laboratory Tests Test 03/29/17 03/30/17 20:20 05:30 Urine Color YELLOW Urine Turbidity CLEAR Urine pH 5.0 Urine Specific [place] GREATER THAN 1.035 Urine Protein NEG Urine Glucose (UA) NEG Urine Ketones NEG Urine Occult Blood NEG Urine Nitrite NEG Urine Bilirubin NEG Urine Leukocyte Esterase NEG Urine RBC 0-3 Urine Squamous Epithelial 0-5 Cells Urine Hyaline Casts 0-2 Urine Mucus FEW Microscopic Urinalysis Comment CULT NOT INDICATED White Blood Count 8.0 Red Blood Count 3.99 Hemoglobin 13.0 Hematocrit 38.3 Mean Corpuscular Volume 96.0 Mean Corpuscular Hemoglobin 32.5 Mean Corpuscular Hemoglobin 33.8 Concent Red Cell Distribution Width 13.2 Platelet Count 133 Mean Platelet Volume 8.6 Neutrophils (%) (Auto) 81.6 Lymphocytes (%) (Auto) 8.8 Monocytes (%) (Auto) 8.2 Eosinophils (%) (Auto) 1.1 Basophils (%) (Auto) 0.3 Neutrophils # (Auto) 6.5 Lymphocytes # (Auto) 0.7 Monocytes # (Auto) 0.7 Eosinophils # (Auto) 0.1 Basophils # (Auto) 0.0 CBC Comment DIFF FINAL Differential Comment Sodium Level 144 Potassium Level 4.0 Chloride Level 109 Carbon Dioxide Level 27.8 Anion Gap 7 Blood Urea Nitrogen 20 Creatinine 0.62 Estimat Glomerular Filtration 122 Rate Random Glucose 134 Calcium Level 8.1 Cardiovascular: Regular Lungs: Clear Abdomen: Other (soft distended, +ttp, incisional scars) A/P Assessment and Plan SBO likely due to adhesions PLAN I recommend bowel rest- this includes avoiding contrast, for 48-[address] NG tube to assist in bowel rest and remove contrast abdominal exams, check and correct lytes will check CEA give pts hx of colon CA STRICT NPO Dayton Pina MD Mar 30, 2017 13:49
[2017-03-30] MEDS ORDERED: SCOPOLAMINE 1.5 MG PATCH T-DERMAL ONE (14:00)
[2017-03-30] MEDS ORDERED: LORazepam 2 MG/ML VIAL IV PUSH PRN (14:00)
--- NOTE | 2017-03-30 15:02 | EKG ---
Date Performed: 03/29/2017 Time Performed: 12:11:13 PTAGE: 89 years EKG: ELECTRONIC VENTRICULAR PACEMAKER Since previous tracing, no significant change noted ABNORM AL RHYTHM ECG PREVIOUS TRACING : 05/04/2016 11.41 DOCTOR: Jona Martínez Interpretating Date/Time 03/30/2017 15:01:08
[2017-03-30] MEDS ORDERED: HALOPERIDOL LACTATE 5 MG/ML AMP IM PRN (15:30)
--- NOTE | 2017-03-30 16:48 | RADRPT ---
EXAM DATE/TIME: 03/30/2017 10:13 CORRECTION Corrected on: April 09, 2017; SMALL BOWEL SERIES DONE ON PATIENT SHILPA MARTINEZ ([id number]) CORRECTION TO EXAM FORM. 6 IMAGES (15MIN,30MIN,45MIN,2HR,4HR) 0 MINUTES FLUORO TIME This report includes an Addendum and supersedes previous reports for this exam. [facility] COMPARISON: ABDOMEN KUB ONLY, March 30, 2017, 8:31. INDICATIONS : Obstruction, nausea, vomiting, no bowel movement x 4 days. FLUORO TIME: 0 minutes IMAGE COUNT: 6 CONTRAST: [facility] IMAGING TIME(S): (15MIN,30MIN,45MIN,2HR,4HR) MEDICAL HISTORY : Carcinoma, colon. Diverticulitis. Carcinoma, prostatic. GERD SURGICAL HISTORY : Cholecystectomy. Appendectomy. bowel resection, partial gastrectomy ENCOUNTER: Subsequent ACUITY: 2 days PAIN SCORE: 0/10 LOCATION: Bilateral abdomen FINDINGS: Contrast was ingested. Stomach demonstrates no abnormality. There is reflux of contrast into the dist al esophagus on the 15 minute image. There is a diverticulum arising from the medial aspect of the se cond portion of the duodenum. The proximal jejunum and duodenum are dilated measuring up to 6 cm. Lorena ges were obtained up to 2 hours and demonstrate progression of contrast to the mid small bowel. The p atient vomited in between images. We were informed that the nasogastric tube was going to be placed f ollowing a 2 hour image. Therefore, procedure was terminated. CONCLUSION: 1. Dilated proximal and mid small bowel measuring up to 6 cm. Secondary to vomiting and placement of nasogastric tube, the procedure was not continued. Evaluation for small bowel obstruction is incomple te. 2. Gastroesophageal reflux. 3. Diverticulum arising from the second portion of the duodenum. Shilpa Chen MD on March 30, 2017 at 16:44 Board Certified Radiologist. This report was verified electronically. ADDENDUM: This addendum is created to clarify the timing of the small bowel follow-through examination. The fin al image obtained was at 4 hours post contrast ingestion, not 2 hours as indicated above. However, ev en at 4 hours contrast did not reach the colon. Shilpa Chen MD on April 01, 2017 at 17:28 Board Certified Radiologist. This report was verified electronically. on April 09, 2017 at 8:26 Board Certified Radiologist. This report was verified electronically.
[2017-03-30 20:54] LABS: BLOOD GAS BASE EXCESS 0.4 mmol/L (-2-2); BLOOD GAS CARBOXYHEMOGLOBIN 1.4 % (0-4); BLOOD GAS HCO3 24 mmol/L (22-26); BLOOD GAS METHEMOGLOBIN 2.4 % (0-2); BLOOD GAS O2 HGB SATURATION 86 % (90-100); BLOOD GAS OXYGEN CONTENT 18.2 Vol % (12.0-20.0); BLOOD GAS PCO2 39 mmHG (38-42); BLOOD GAS PO2 60 mmHG (61-120); CRITICAL VALUE YES; DRAW SITE RT BRACHIAL; NUMBER OF ARTERIAL PUNCTURES 1; OXYGEN DEVICE NASAL CANNULA; TEMP CORR TO 98.6
[2017-03-30 20:55] LABS: LITER FLOW 6 L/M; STAT YES; ULNAR PULSE Y
--- NOTE | 2017-03-30 20:57 | RADRPT ---
EXAM DATE/TIME: 03/30/2017 20:42 [facility] COMPARISON: CHEST SINGLE AP, October 28, 2016, 11:21. INDICATIONS : Shortness of breath. MEDICAL HISTORY : Hypertension. Cardiovascular disease. SURGICAL HISTORY : Pacemaker. ENCOUNTER: Initial ACUITY: 1 day PAIN SCORE: Non-responsive. LOCATION: Bilateral chest FINDINGS: A single view of the chest demonstrates the lungs to be symmetrically aerated without evidence of mas s, infiltrate or effusion. There is a mild atelectasis versus scarring in the lung bases. There is a chronic deformity involving the left sixth rib. There is no evidence of pneumothorax. Bony structure s are grossly intact. There is a pacemaker overlying the right chest. The cardiomediastinal contours are unremarkable. Osseous structures are intact. CONCLUSION: No acute findings. Chronic scarring left lateral lower lung. Vinh James MD on March 30, 2017 at 20:54 Board Certified Radiologist. This report was verified electronically.
[2017-03-30] MEDS ORDERED: ACETAMINOPHEN 1000 MG/100 ML VIAL IV ONE (21:00)
--- NOTE | 2017-03-30 21:22 | MB ---
cc: ROB GOETZ MD DATE OF CONSULTATION: 03/30/2017 REASON FOR CONSULTATION: Small-bowel obstruction. HISTORY OF PRESENT ILLNESS The patient is an 89-year-old male with a history of multiple abdominal surgeries including partial gastrectomy, colon resection for colon cancer, exploratory laparotomy. The patient was noted to have "ten previous small bowel obstructions all treated conservatively," none requiring any hospitalization. The patient states he usually has a bowel movement and the distension and pain improves with this. The patient states, however, he presented with acute onset of left-sided abdominal pain that started yesterday while watching a ball game. He states he had multiple history of nausea, vomiting and has had no bowel movement or passed any gas. He decided to come to the emergency department due to the significant pain. On my exam he states his pain has improved somewhat. It is currently a 4/10, initial presentation was 10/10. It was achy, diffuse, some relieved with pain medications, worse with movement and palpation. He had further workup including a CT scan showing dilation of the proximal multiple small bowel loops with decompression distally characteristic of obstruction with some equalization of the small bowel, evidence of partial colectomy and diverticulosis. Surgery was consulted for further evaluation and management. PAST MEDICAL HISTORY Colon cancer, seizure disorder, hypertension. PAST SURGICAL HISTORY 1. Gastrectomy with partial vagotomy. 2. Bowel resection for colon cancer. 3. Pacemaker placement. 4. Cataract surgery. 5. Tonsillectomy. MEDICATIONS: See EMR. ALLERGIES: PHENERGAN FAMILY HISTORY: Denies any family history of hypertension or diabetes. SOCIAL HISTORY: Denies smoking, ETOH or IVDA. Past history of smoking. REVIEW OF SYSTEMS General: The patient denies headache and pain. HEENT: Denies eye pain, ear pain. Neck: Denies swelling. Respiratory: Denies cough or wheeze. Cardiac: Denies palpitations. Abdomen: Complained of nausea, vomiting, abdominal pain. Musculoskeletal: Denies arthralgia, myalgias. Neurologic: Denies numbness or tingling. Endocrine: Denies polyuria, polydipsia . Integument: Denies skin masses or lesions. PHYSICAL EXAMINATION General: The patient no acute distress. VITAL SIGNS: Temperature 98, pulse 106, respirations 18. Blood pressure 148/95, pulse ox 95%. HEENT: PERRLA, EOMI. Lungs clear to auscultation, bilateral expansion. Heart: S1-S2 pacer. Abdomen: Soft, distended, positive tenderness to palpation. No rebound, multiple well-healed surgical scars. Extremities: Warm, well perfused. Neurologic: A&O x4. Bilateral fine motor, all extremities. LABORATORY/DIAGNOSTIC DATA: WBC is 10.2, hemoglobin 14.5, hematocrit 42.4, platelets 155, sodium 140, potassium 4.2, chloride 103, BUN 33, creatinine 0.8, calcium 9.3, T bili 0.5, AST 31, ALT 48, alkaline phosphatase 184, lipase 56. INR 1, PTT 24.3. CT scan reviewed by myself showing evidence of partial gastrectomy and dilated small bowel loops with air-fluid levels, some fecalization, evidence of anastomosis, partial colectomy. ASSESSMENT The patient is an 89-year-old male noted previous bowel obstructions that may have required hospitalization. The patient presents with acute onset of abdominal pain consistent with small bowel obstruction, likely due to adhesions. PLAN: After full clinical and radiologic laboratory workup the patient with the above-named issue including acute bowel obstruction. At this point the patient needs to be n.p.o. with appropriate IV fluids. Continue to correct and check electrolytes. Monitor the patient closely. We will attempt initial nonoperative management including abdominal exams and again I will follow the patient along with you. At this point I recommend only obtaining an abdominal x-ray to assess and evaluate the bowel. I do not recommend currently obtaining small bowel follow-through as we will consider getting this in 48 to 72 hours. The patient needs initial bowel rest as the patient does have evidence of acute obstruction with fecalization indicating somewhat of an advancement in his small bowel obstruction. The patient is high-risk for surgical intervention as he has multiple surgical scars and has had several previous major surgical explorations and abdominal surgeries. Discussed in detail with the patient regarding his high surgical risk and the best management would be bowel rest, n.p.o., IV fluids. Further discussed NG tube placement with the patient. The patient is currently not wanting this, however, I did discuss if he vomits that we will need to place an NG tube to protect him against aspiration or further issue. Thank you for the consultation. MD MARY Albert/MILAGROS /4:26 PM /9:00 PM
[2017-03-30] MEDS: CEFEPIME INJ 2,000 MG in SODIUM CHLORIDE 0.9% INJ 100 ML IV SCH (21:30)
[2017-03-30] MEDS ORDERED: HALOPERIDOL LACTATE 5 MG/ML AMP OTHER ONE (21:45)
[2017-03-30] MEDS ORDERED: RESP: ALBUTEROL 2.5 MG/IPRATROPIUM 0.5 MG NEB (SCH) NEB ONE (21:45)
[2017-03-30 22:33] LABS: BLOOD, URINE LARGE (NEG); GLUCOSE,URINE NEG (NEG); KETONE, URINE 15 mg/dL (NEG); NITRITE,URINE NEG (NEG); PH, URINE 5.5 (5.0-8.5)
[2017-03-30 22:43] LABS: URINE COLOR YELLOW (YELLW/STRAW)
[2017-03-30 22:44] LABS: COMMENT (UR) CATH-CULTURE IND; CULTURE IF INDICATED CATH CULTURE IND; MUCUS URINE FEW /lpf (OCC); SQUAMOUS EPITHELIAL CELL URINE 0-5 /hpf (0-5)
[2017-03-31] VITALS (20 sets, daily range): BP systolic 105–156; BP diastolic 58–85; PULSE 100–124; RESP 19–34; TEMP 97.4–98.2; O2SAT 90–94
[2017-03-31] MEDS ORDERED: HALOPERIDOL LACTATE 5 MG/ML AMP IM ONE (00:15)
[2017-03-31] MEDS: CEFEPIME INJ 2,000 MG in SODIUM CHLORIDE 0.9% INJ 100 ML IV SCH ×3 (05:21→20:59)
[2017-03-31 07:29] LABS: BLOOD GAS HCO3 24 mmol/L (22-26); BLOOD GAS METHEMOGLOBIN 2.4 % (0-2); BLOOD GAS O2 HGB SATURATION 92 % (90-100); BLOOD GAS OXYGEN CONTENT 17.9 Vol % (12.0-20.0); BLOOD GAS PCO2 38 mmHG (38-42); BLOOD GAS PO2 85 mmHG (61-120); BLOOD GAS TOTAL HGB 13.8 G/DL (12.0-16.0); CRITICAL VALUE NO; DRAW SITE LT RADIAL; LITER FLOW 13 L/M; NUMBER OF ARTERIAL PUNCTURES 1; OXYGEN DEVICE PRB; TEMP CORR TO 98.6
[2017-03-31 07:30] LABS: STAT YES; ULNAR PULSE PRESENT
[2017-03-31 07:34] LABS: CHLORIDE 108 MEQ/L (98-107); POTASSIUM 3.9 MEQ/L (3.5-5.1); SODIUM (NA) 146 MEQ/L (136-145)
[2017-03-31 07:39] LABS: AUTOMATED NEUTROPHIL # 6.2 TH/MM3 (1.8-7.7); BASOPHIL % 0.1 % (0.0-2.0); EOSINOPHIL % 0.2 % (0.0-4.0); HEMATOCRIT 37.4 % (39.0-51.0); LYMPH % 6.3 % (9.0-44.0); LYMPHOCYTE # 0.5 TH/MM3 (1.0-4.8); MEAN CORPUSCULAR HEMOGLOBIN 33.1 PG (27.0-34.0); MEAN CORPUSCULAR HGB CONC 34.8 % (32.0-36.0); MONO % 9.1 % (0.0-8.0); NEUT % 84.3 % (16.0-70.0); PLATELET COUNT 105 TH/MM3 (150-450); RED BLOOD COUNT 3.93 MIL/MM3 (4.50-5.90); WHITE BLOOD COUNT 7.4 TH/MM3 (4.0-11.0)
[2017-03-31 07:43] LABS: HEMO FLAGS DIFF FINAL
[2017-03-31 07:59] LABS: ALKALINE PHOSPHATASE 123 U/L (45-117); ALT (GPT) 37 U/L (12-78); ANION GAP 10 MEQ/L (5-15); AST (GOT) 36 U/L (15-37); BICARBONATE 28.1 MEQ/L (21.0-32.0); BLOOD UREA NITROGEN 30 MG/DL (7-18); GLOMERULAR FILTRATION RATE 79 ML/MIN (>89); TOTAL BILIRUBIN ADULT 0.9 MG/DL (0.2-1.0)
[2017-03-31] MEDS: SODIUM CHLOR 0.9% 1000 ML INJ 1,000 ML IV SCH ×3 (08:06→21:00)
--- NOTE | 2017-03-31 08:33 | HHI.PR ---
Subjective Remarks Follow up for small bowel obstruction. Patient is doing better. Last night he became very agitated and pulled off NG tube. He started getting shortness of breath too and required oxygen via face mask. He had fever last night as well. This morning he appears to be very pleasant. He denies much abdominal pain, no fever, chills. No BM or flatus yet. Objective Vitals Vital Signs Date Time Temp Pulse Resp B/P Pulse Ox O2 Delivery O2 Flow Rate FiO2 03/31/17 07:30 92 Partial Rebreather 13.00 03/31/17 07:05 Partial Non-Rebreather 13.00 21 03/31/17 07:05 110 03/30/17 23:00 115 03/30/17 21:30 97 Partial Non-Rebreather 12.00 03/30/17 21:00 91 Nasal Cannula 6.00 03/30/17 20:55 93 Partial Rebreather 12.00 03/30/17 20:15 87 Nasal Cannula 4.00 03/30/17 20:00 102.1 129 18 159/88 91 03/30/17 20:00 Nasal Cannula 2.00 03/30/17 16:00 96.3 114 22 138/85 92 03/30/17 12:00 96.2 104 20 144/88 91 I/O 03/30/17 03/30/17 03/30/17 03/31/17 03/31/17 03/31/17 07:00 15:00 23:00 07:00 15:00 23:00 Intake Total 0 ml 1200 ml 800 ml Output Total 550 ml 550 ml 800 ml 300 ml Balance -550 ml -550 ml 400 ml 500 ml Intake Oral 0 ml 0 ml IV Total 1200 ml 800 ml Output Urine Total 550 ml 550 ml 300 ml Gastric Drainage Total 800 ml # Voids 1 # Bowel Movements 0 Result Diagram: 03/31/17 0530 03/31/17 0530 Imaging Last Impressions Small Bowel X-Ray 03/30/17 0000 Signed Impressions: Service Date/Time: Thursday, March 30, 2017 10:13 - CONCLUSION: 1. Dilated proximal and mid small bowel measuring up to 6 cm. Secondary to vomiting and placement of nasogastric tube, the procedure was not continued. Evaluation for small bowel obstruction is incomplete. 2. Gastroesophageal reflux. 3. Diverticulum arising from the second portion of the duodenum. Landon Chen MD Chest X-Ray 03/30/17 0000 Signed Impressions: Service Date/Time: Thursday, March 30, 2017 20:42 - CONCLUSION: No acute findings. Chronic scarring left lateral lower lung. Vinh James MD Abdomen X-Ray 03/30/17 0000 Signed Impressions: Service Date/Time: Thursday, March 30, 2017 08:31 - CONCLUSION: Nonspecific minimal dilatation of proximal small bowel when compared to distal. Similar was seen on the CT scan of 03/29/2017. Narciso Graf MD FACR Abdomen/Pelvis CT 03/29/17 1202 Signed Impressions: Service Date/Time: Wednesday, March 29, 2017 13:05 - CONCLUSION: 1. Dilatation of multiple proximal small bowel loops with distal decompression characteristic of a small bowel obstruction. There is some fecalization of small bowel contents proximal to the obstruction. 2. Partial colectomy on the right. Colonic diverticulosis without diverticulitis. 3. Postoperative cholecystectomy with residual biliary ductal dilatation similar to 2016. 4. Patchy airspace disease at the lung bases. Andrae Kay MD Objective Remarks GENERAL: AOX3, NAD. SKIN: Warm and dry. HEAD: Normocephalic. EYES: No scleral icterus. No injection or drainage. NECK: Supple, trachea midline. No JVD or lymphadenopathy. CARDIOVASCULAR: Regular rate and rhythm without murmurs, gallops, or rubs. RESPIRATORY: Breath sounds equal bilaterally. No accessory muscle use. GASTROINTESTINAL: Abdomen soft, non-tender. No appreciable bowel sound. MUSCULOSKELETAL: No cyanosis, or edema. BACK: Nontender without obvious deformity. No CVA tenderness. Procedures None. A/P Problem List: (1) Small bowel obstruction ICD Code: K56.69 Status: Acute (2) Hypertension ICD Code: I10 Status: Acute (3) Seizure disorder ICD Code: G40.909 Status: Acute Assessment and Plan Mr. Banks is a pleasant 89 year old male with a history of subtotal gastrectomy who presents to the ED due to diffuse abdominal pain, nausea, vomiting that started last night. He denies any fever, chills. His last BM was two days ago. He reports no flatus. CT abd/pelvis shows multiple proximal small bowel dilatation indicating small bowel obstruction. - Acute respiratory failure hypoxic - Developed overnight, possibly chemical pneumonitis from aspiration. - Lactic acid 2.2, 2.4. WBC 7.4K. - Transfer patient to ICU ([facility]). - Continue Cefepime 2g Q8hrs. If patient remains afebrile, we can discontinue Cefepime on 04/01/2017. - Continue supplemental O2, DuoNeb PRN. Titrate down O2 requirements. - Small bowel obstruction - Continue nothing by mouth status. Patient pulled NG tube multiple times. However, now he appears pleasant and not agitated. - Reviewed KUB by me on 03/30/2017 - shows small bowel dilatation. - General surgery following. - Continue normal saline at 100 cc per hour. - Acetaminophen for pain 1-4 and morphine for pain 5-10. - Acute agitation/delirium - We will use Haloperidol PRN. - Hypertension - continue lisinopril 10 mg daily. - Seizure disorder - continue phenytoin 200 mg twice a day. - Hyperlipidemia - Continue Pravastatin 80mg Qday. Full code. SCDs. Zulema Urbina DO Mar 31, 2017 8:33 am
[2017-03-31] MEDS: SODIUM CHLORIDE 0.9% FLUSH 10 ML FLUSH IV FLUSH SCH ×2 (09:00→20:59)
[2017-03-31] MEDS ORDERED: RESP: ALBUTEROL 2.5 MG/IPRATROPIUM 0.5 MG NEB (PRN) NEB (09:45)
[2017-03-31] MEDS: PHENYTOIN SODIUM 100 MG CAP PO SCH ×2 (09:58→19:51)
[2017-03-31] MEDS: PRAVASTATIN SOD 80 MG TAB PO SCH (09:59)
[2017-03-31] MEDS: PANTOPRAZOLE SOD 20 MG DELAYED RELEASE TAB PO SCH (09:59)
[2017-03-31] MEDS: DOCUSATE SODIUM 50 MG/SENNA 8.6 MG TAB PO SCH ×2 (10:00→19:51)
[2017-03-31] MEDS: LISINOPRIL 10 MG TAB PO SCH (10:00)
[2017-03-31 10:22] LABS: LACTIC ACID GHOST NOT REPORTABLE
[2017-03-31] MEDS ORDERED: CHLORHEXIDINE GLUCONATE 2 % 1 PACK (2 CLOTHS)(extra cloths) TOPICAL PRN (11:00)
--- NOTE | 2017-03-31 11:41 | HHI.PR ---
Subjective Subjective Notes c/o burning with sexton. Denies flatus or BM since Thursday. Pulled NG, no N/V. Feels less distended. Objective Vitals/I&O Vital Signs Date Time Temp Pulse Resp B/P Pulse Ox O2 Delivery O2 Flow Rate FiO2 03/31/17 07:30 92 Partial Rebreather 13.00 03/31/17 07:05 21 03/31/17 07:05 110 03/30/17 20:00 102.1 18 159/88 Labs Laboratory Tests Test 03/30/17 03/30/17 03/30/17 03/31/17 20:42 20:55 22:10 05:30 Blood Gas Puncture Site RT BRACHIAL Blood Gas Patient Temperature 98.6 Blood Gas HCO3 24 Blood Gas Base Excess 0.4 Blood Gas Oxygen Saturation 86 Arterial Blood pH 7.41 Arterial Blood Partial 39 Pressure CO2 Arterial Blood Partial 60 Pressure O2 Arterial Blood Oxygen Content 18.2 Arterial Blood 1.4 Carboxyhemoglobin Arterial Blood Methemoglobin 2.4 Blood Gas Hemoglobin 15.0 Oxygen Delivery Device NASAL CANNULA Blood Gas Liter Flow 6 Lactic Acid Level 2.2 Urine Color YELLOW Urine Turbidity CLEAR Urine pH 5.5 Urine Specific Brandon 1.030 Urine Protein 30 Urine Glucose (UA) NEG Urine Ketones 15 Urine Occult Blood LARGE Urine Nitrite NEG Urine Bilirubin NEG Urine Leukocyte Esterase NEG Urine RBC 25-49 Urine WBC 9-14 Urine Squamous Epithelial 0-5 Cells Urine Mucus FEW Urine Yeast (Budding) FEW Microscopic Urinalysis Comment CATH-CULTURE IND White Blood Count 7.4 Red Blood Count 3.93 Hemoglobin 13.0 Hematocrit 37.4 Mean Corpuscular Volume 95.0 Mean Corpuscular Hemoglobin 33.1 Mean Corpuscular Hemoglobin 34.8 Concent Red Cell Distribution Width 13.0 Platelet Count 105 Mean Platelet Volume 8.9 Neutrophils (%) (Auto) 84.3 Lymphocytes (%) (Auto) 6.3 Monocytes (%) (Auto) 9.1 Eosinophils (%) (Auto) 0.2 Basophils (%) (Auto) 0.1 Neutrophils # (Auto) 6.2 Lymphocytes # (Auto) 0.5 Monocytes # (Auto) 0.7 Eosinophils # (Auto) 0.0 Basophils # (Auto) 0.0 CBC Comment DIFF FINAL Differential Comment Sodium Level 146 Potassium Level 3.9 Chloride Level 108 Carbon Dioxide Level 28.1 Anion Gap 10 Blood Urea Nitrogen 30 Creatinine 0.90 Estimat Glomerular Filtration 79 Rate Random Glucose 218 Calcium Level 8.5 Total Bilirubin 0.9 Aspartate Amino Transf 36 (AST/SGOT) Alanine Aminotransferase 37 (ALT/SGPT) Alkaline Phosphatase 123 Total Protein 6.5 Albumin 3.0 Carcinoembryonic Antigen 7.9 Test 03/31/17 03/31/17 03/31/17 07:20 08:05 10:40 Blood Gas Puncture Site LT RADIAL Blood Gas Patient Temperature 98.6 Blood Gas HCO3 24 Blood Gas Base Excess 0.0 Blood Gas Oxygen Saturation 92 Arterial Blood pH 7.42 Arterial Blood Partial 38 Pressure CO2 Arterial Blood Partial 85 Pressure O2 Arterial Blood Oxygen Content 17.9 Arterial Blood 1.0 Carboxyhemoglobin Arterial Blood Methemoglobin 2.4 Blood Gas Hemoglobin 13.8 Oxygen Delivery Device PRB Blood Gas Liter Flow 13 Lactic Acid Level 2.4 2.5 Date/Time Procedure Status Source Growth 03/30/17 22:10 Urine Culture Received Urine Catheterized Urine Pending 03/30/17 20:55 Aerobic Blood Culture - Preliminary Resulted Blood Peripheral NO GROWTH IN 1 DAY 03/30/17 20:55 Anaerobic Blood Culture - Preliminary Resulted Blood Peripheral NO GROWTH IN 1 DAY Abdomen: Other (mild/moderate distendtion, mildly tender, BS present. Multiple scars gus crossing abdomen, no palpable hernias. ) Extremities: No edema, Perfused A/P Assessment and Plan Abdominal distention, tenderness, proximal dilated small bowel, concerning for SBO, h/o multiple prior abdominal surgeries including partial gastrectomy, colon resection. Most likely etiology adhesions. Somewhat improved. Plan dulcolax suppository, repeat or provide fleets if no significant result. Follow up flat and upright xrays of abdomen tomorrow. Hope to avoid another surgery. If does not open up, may need adhesiolysis. Quique Estes MD Mar 31, 2017 11:41
[2017-03-31] MEDS ORDERED: BISACODYL 10 MG SUPP RECTAL ONE (11:45)
[2017-04-01] VITALS (30 sets, daily range): BP systolic 97–151; BP diastolic 63–91; PULSE 96–116; RESP 2–41; TEMP 97.7–98.9; O2SAT 88–98
[2017-04-01] MEDS: ACETAMINOPHEN 325 MG TAB PO PRN (02:37)
[2017-04-01] MEDS: CEFEPIME INJ 2,000 MG in SODIUM CHLORIDE 0.9% INJ 100 ML IV SCH ×2 (03:47→07:41)
[2017-04-01] MEDS: CHLORHEXIDINE GLUCONATE 2 % 1 PACK (2 CLOTHS)(taper/protocol) TOPICAL SCH (03:47)
[2017-04-01] MEDS: LISINOPRIL 10 MG TAB PO SCH (07:41)
[2017-04-01] MEDS: PANTOPRAZOLE SOD 20 MG DELAYED RELEASE TAB PO SCH (07:41)
[2017-04-01] MEDS: PRAVASTATIN SOD 80 MG TAB PO SCH (07:41)
[2017-04-01] MEDS: PHENYTOIN SODIUM 100 MG CAP PO SCH ×2 (07:42→20:50)
[2017-04-01] MEDS: SODIUM CHLOR 0.9% 1000 ML INJ 1,000 ML IV SCH (07:42)
[2017-04-01] MEDS: SODIUM CHLORIDE 0.9% FLUSH 10 ML FLUSH IV FLUSH SCH ×2 (09:00→20:51)
[2017-04-01] MEDS: DOCUSATE SODIUM 50 MG/SENNA 8.6 MG TAB PO SCH ×2 (09:00→20:50)
--- NOTE | 2017-04-01 09:01 | RADRPT ---
EXAM DATE/TIME: 04/01/2017 08:25 [facility] COMPARISON: ABDOMEN KUB ONLY, March 30, 2017, 8:31. SMALL BOWEL SERIES W/GASTROGRAFIN, March 30, 2017, 10:13. INDICATIONS : Obstruction. MEDICAL HISTORY : Carcinoma, colon. Carcinoma, prostatic. Diverticulitis. GERD SURGICAL HISTORY : Cholecystectomy. Appendectomy. Bowel resection, partial gastrectomy ENCOUNTER: Subsequent ACUITY: 3 days PAIN SCORE: 0/10 LOCATION: Bilateral abdomen FINDINGS: Supine and upright views of the abdomen were performed. Today's exam is compared to the prior study. There continues to be some air-filled mildly dilated loops of small bowel in the mid abdomen with mercedez e air-fluid levels. This is improved compared to the prior examination. There is some residual contra st in the colon which is nondistended. The lung bases are grossly clear.. CONCLUSION: Improved bowel gas pattern compared to the prior examination. Luis Manuel Slaughter MD on April 01, 2017 at 8:57 Board Certified Radiologist. This report was verified electronically.
--- NOTE | 2017-04-01 13:20 | HHI.PR ---
Subjective Remarks Patient denies abdominal pain denies fevers/chills patient is on 4 liters nasal canula as per RN patient somewhat agitated needs to be constantly supervised. tachycardic episodic tachypnea Objective Vitals Vital Signs Date Time Temp Pulse Resp B/P Pulse Ox O2 Delivery O2 Flow Rate FiO2 04/01/17 12:30 102 21 93 04/01/17 12:00 98.2 100 22 134/77 93 04/01/17 12:00 100 04/01/17 11:30 112 20 92 04/01/17 11:00 96 25 140/68 94 04/01/17 10:30 112 41 98 04/01/17 10:00 100 23 146/86 93 04/01/17 09:00 108 18 121/75 93 04/01/17 09:00 93 Nasal Cannula 4.00 Humidified 04/01/17 08:55 97 Nasal Cannula 6.00 Humidified 04/01/17 08:15 94 Nasal Cannula 6.00 04/01/17 08:00 116 18 102/64 94 04/01/17 08:00 106 04/01/17 07:00 97.7 100 2 135/69 91 04/01/17 07:00 92 Nasal Cannula 6.00 Humidified 04/01/17 06:01 108 23 107/70 04/01/17 05:01 106 17 117/66 04/01/17 04:01 98.9 110 28 107/66 92 04/01/17 04:00 107 04/01/17 03:06 97/69 04/01/17 02:01 114 27 128/70 91 04/01/17 00:01 98.4 116 25 139/72 93 04/01/17 00:00 114 03/31/17 23:01 116 24 127/74 92 03/31/17 22:01 118 27 118/75 92 03/31/17 21:04 120 29 148/85 94 03/31/17 20:55 92 Nasal Cannula 6.00 03/31/17 20:01 98.2 114 23 135/70 93 03/31/17 20:00 116 03/31/17 19:00 Nasal Cannula 6.00 03/31/17 19:00 120 24 136/76 03/31/17 18:00 120 27 106/80 03/31/17 17:14 118 30 125/73 92 03/31/17 17:00 116 34 91 03/31/17 16:00 97.7 114 24 113/61 92 03/31/17 16:00 114 03/31/17 15:00 118 26 105/58 92 03/31/17 14:00 116 19 128/74 90 03/31/17 14:00 118 I/O 03/31/17 03/31/17 03/31/17 04/01/17 04/01/17 04/01/17 07:00 15:00 23:00 07:00 15:00 23:00 Intake Total 800 ml 2889 ml Output Total 300 ml 451 ml 300 ml 300 ml Balance 500 ml 2438 ml -300 ml -300 ml Intake Oral 0 ml 300 ml IV Total 800 ml 2589 ml Output Urine Total 300 ml 450 ml 300 ml 300 ml Stool Total 1 ml # Voids 1 2 # Bowel Movements 5 Result Diagram: 03/31/17 0530 03/31/17 0530 Imaging Last Impressions Abdomen X-Ray 04/01/17 0600 Signed Impressions: Service Date/Time: Saturday, April 01, 2017 08:25 - CONCLUSION: Improved bowel gas pattern compared to the prior examination. Luis Manuel Slaughter MD Chest X-Ray 04/01/17 0000 Signed Impressions: Service Date/Time: Saturday, April 01, 2017 13:38 - CONCLUSION: 1. Slight increased interstitial prominence consistent with mild positive fluid balance superimposed on chronic interstitial change. 2. Ill-defined focal region of increased opacity in the right midlung may reflect summation of shadows although developing airspace disease cannot be excluded. Hung Dash MD Small Bowel X-Ray 03/30/17 0000 Signed Impressions: Service Date/Time: Thursday, March 30, 2017 10:13 - CONCLUSION: 1. Dilated proximal and mid small bowel measuring up to 6 cm. Secondary to vomiting and placement of nasogastric tube, the procedure was not continued. Evaluation for small bowel obstruction is incomplete. 2. Gastroesophageal reflux. 3. Diverticulum arising from the second portion of the duodenum. Landon Chen MD Abdomen/Pelvis CT 03/29/17 1202 Signed Impressions: Service Date/Time: Wednesday, March 29, 2017 13:05 - CONCLUSION: 1. Dilatation of multiple proximal small bowel loops with distal decompression characteristic of a small bowel obstruction. There is some fecalization of small bowel contents proximal to the obstruction. 2. Partial colectomy on the right. Colonic diverticulosis without diverticulitis. 3. Postoperative cholecystectomy with residual biliary ductal dilatation similar to 2016. 4. Patchy airspace disease at the lung bases. Andrae Kay MD Objective Remarks GENERAL: AOX3, NAD. SKIN: Warm and dry. HEAD: Normocephalic. EYES: No scleral icterus. No injection or drainage. NECK: Supple, trachea midline. No JVD or lymphadenopathy. CARDIOVASCULAR: Regular rate and rhythm without murmurs, gallops, or rubs. RESPIRATORY: Crackles in the left base. No wheezing or rhonchi auscultated. GASTROINTESTINAL: Abdomen soft, non-tender. No appreciable bowel sound. MUSCULOSKELETAL: No cyanosis, or edema. BACK: Nontender without obvious deformity. No CVA tenderness. Procedures None. Medications and IVs Current Medications Medications (Trade) Dose Ordered Sig/Sera Route Start Time Stop Time Status Last Admin (NS Flush) 2 ml UNSCH PRN IV FLUSH 03/29/17 14:15 (NS Flush) 2 ml BID IV FLUSH 03/29/17 21:00 (Tylenol) 650 mg Q4H PRN PO 03/29/17 14:15 04/01/17 02:37 (Zofran Inj) 4 mg Q6H PRN IVP 03/29/17 14:15 03/30/17 09:29 (Narcan Inj) 0.4 mg UNSCH PRN IV 03/29/17 14:15 (Olimpia-Colace) 1 tab BID PO 03/29/17 21:00 03/31/17 19:51 (Milk Of Magnesia Liq) 30 ml Q12H PRN PO 03/29/17 14:15 (Senokot) 17.2 mg Q12H PRN PO 03/29/17 14:15 (Dulcolax Supp) 10 mg DAILY PRN RECTAL 03/29/17 14:15 (Lactulose Liq) 30 ml DAILY PRN PO 03/29/17 14:15 (Prinivil) 10 mg DAILY PO 03/30/17 09:00 04/01/17 07:41 (Dilantin) 200 mg BID PO 03/29/17 21:00 04/01/17 07:42 (Protonix) 20 mg DAILY PO 03/30/17 09:00 04/01/17 07:41 (Pravachol) 80 mg DAILY PO 03/30/17 09:00 04/01/17 07:41 (Morphine Inj) 4 mg Q3H PRN IV PUSH 03/29/17 15:30 03/30/17 11:21 (Compazine Inj) 5 mg Q4H PRN IV PUSH 03/29/17 18:45 03/30/17 11:16 (Haldol Inj) 2 mg Q6H PRN IM 03/30/17 15:30 03/30/17 19:09 Miscellaneous Information Patient in critical care unit? Ass... Q361D .XX 03/31/17 11:00 (Chlorhexidine 2% Cloth) 3 pack DAILY@04 TOPICAL 04/01/17 04:00 04/05/17 04:01 04/01/17 03:47 Chlorhexidine Gluconate 3 pack 3 pack UNSCH PRN TOPICAL 03/31/17 11:00 04/05/17 10:51 Sodium Chloride 1,000 ml @ 150 mls/hr Q6H40M IV 04/01/17 13:15 04/01/17 13:29 (Zosyn 4.5 Gm Premix) 100 ml @ 200 mls/hr Q8H IV 04/01/17 15:00 (Diflucan) 100 mg DAILY PO 04/01/17 14:00 04/01/17 14:11 Urinary Catheter: Yes Assessment to: Remove Vascular Central Line Catheter: No A/P Problem List: (1) Sepsis ICD Code: A41.9 Status: Acute Plan: Mr. Banks is a pleasant 89 year old male with a history of subtotal gastrectomy who presents to the ED due to diffuse abdominal pain, nausea, vomiting that started last night. He denies any fever, chills. His last BM was two days ago. He reports no flatus. CT abd/pelvis shows multiple proximal small bowel dilatation indicating small bowel obstruction. Now the patient is tachycardic and tachypneic. Chest x-ray reviewed by me shows slight increase interstitial prominence and ill -defined focal region of increased opacity in the right middle lung. Patient has shortness of breath and is hypoxemic requiring elevated levels of oxygen likely secondary to aspiration pneumonia reflected by right mid lung infiltrate. I will discontinue cefepime which would not cover for aspiration pneumonia and start the patient on IV Zosyn. Continue to supplement oxygen to keep an oxygen saturation more than 92% (2) PNA (pneumonia) ICD Code: J18.9 Status: Acute Plan: Likely aspiration pneumonia. Start the patient IV Zosyn discontinue IV cefepime. Continue supplemental oxygen to keep oxygen saturation 192% (3) UTI (urinary tract infection) ICD Code: N39.0 Status: Acute Plan: UA with WBCs and red blood cells in the urine. Yeast also found on urinalysis. I will add fluconazole and continue IV Zosyn as above. (4) Small bowel obstruction ICD Code: K56.69 Status: Acute Plan: Patient initially placed on nothing by mouth status. KUB on shows small bowel dilatation. Neurosurgery following Most likely etiology adhesions. Somewhat improved. Plan dulcolax suppository, repeat or provide fleets if no significant result. Follow up flat and upright xrays of abdomen tomorrow. If does not open up, may need adhesiolysis. (5) Hypertension ICD Code: I10 Status: Chronic Plan: Seems to be stable. Continue lisinopril. (6) Seizure disorder ICD Code: G40.909 Status: Chronic Plan: Stable. Continue Dilantin. (7) Agitation ICD Code: R45.1 Status: Acute Plan: Continue Haldol when necessary. We'll start the patient on Seroquel 25 mg by mouth twice a day. Assessment and Plan DVT prophylaxis: SCDs, will place on heparin subcutaneously Discharge Planning Continue to monitor in intensive care unit. Patient still requiring high dose of oxygen. Problem Qualifiers (1) Sepsis: Qualified Code: A41.9 - Sepsis, due to unspecified organism (2) PNA (pneumonia): Qualified Code: J69.0 - Aspiration pneumonia of right middle lobe, unspecified aspiration pneumonia type (3) UTI (urinary tract infection): Qualified Code: N30.01 - Acute cystitis with hematuria (4) Hypertension: Qualified Code: I10 - Essential hypertension Riccardo Gan MD Apr 01, 2017 13:20
[2017-04-01] MEDS: SODIUM CHLOR 0.45% 1000 ML INJ 1,000 ML IV SCH ×2 (13:29→20:51)
--- NOTE | 2017-04-01 14:07 | RADRPT ---
EXAM DATE/TIME: 04/01/2017 13:38 [facility] COMPARISON: CHEST SINGLE AP, March 30, 2017, 20:42. INDICATIONS : Short of breath. MEDICAL HISTORY : Hypertension. Cardiovascular disease. SURGICAL HISTORY : Pacemaker. ENCOUNTER: Subsequent ACUITY: 3 days PAIN SCORE: 0/10 LOCATION: Bilateral chest FINDINGS: Stable pacemaker in place with battery pack obscuring a portion of the right apex. Lungs are slightly hypoaerated with diffuse interstitial prominence. Redemonstration of chronic left lower lobe airspac e disease. Slight increased ill-defined opacity in the right midlung. Cardiomediastinal contours are stable. Central pulmonary vascularity is slightly prominent. Remainder of the exam is unchanged. CONCLUSION: 1. Slight increased interstitial prominence consistent with mild positive fluid balance superimposed on chronic interstitial change. 2. Ill-defined focal region of increased opacity in the right midlung may reflect summation of shadow s although developing airspace disease cannot be excluded. Hung Dash MD on April 01, 2017 at 14:01 Board Certified Radiologist. This report was verified electronically.
[2017-04-01] MEDS: FLUCONAZOLE 100 MG TAB PO SCH (14:11)
[2017-04-01 14:39] LABS: CHLORIDE 108 MEQ/L (98-107); POTASSIUM 3.4 MEQ/L (3.5-5.1); SODIUM (NA) 144 MEQ/L (136-145)
[2017-04-01 14:45] LABS: ANION GAP 9 MEQ/L (5-15); BICARBONATE 26.9 MEQ/L (21.0-32.0)
[2017-04-01 14:46] LABS: BLOOD UREA NITROGEN 28 MG/DL (7-18)
[2017-04-01 14:48] LABS: ALT (GPT) 40 U/L (12-78); AST (GOT) 63 U/L (15-37); GLOMERULAR FILTRATION RATE 112 ML/MIN (>89)
[2017-04-01 14:50] LABS: TOTAL BILIRUBIN ADULT 0.8 MG/DL (0.2-1.0)
[2017-04-01 14:51] LABS: ALKALINE PHOSPHATASE 114 U/L (45-117)
[2017-04-01] MEDS: PIPERACIL-TAZO 4.5 GM PREMIX 100 ML IV SCH ×2 (15:13→23:05)
[2017-04-01] MEDS ORDERED: POTASSIUM CHLORIDE 20 MEQ CONTROLLED RELEASE TAB PO ONE (15:30)
[2017-04-01] MEDS ORDERED: CEFEPIME INJ 2,000 MG in SODIUM CHLORIDE 0.9% INJ 100 ML IV SCH (16:00)
[2017-04-01 16:16] LABS: LACTIC ACID GHOST NOT REPORTABLE
[2017-04-01] MEDS: traZODone HCL 50 MG TAB PO SCH (20:50)
--- NOTE | 2017-04-01 21:53 | HHI.PR ---
Subjective Subjective Notes axr better, no nausea, 6 bms overnight Objective Vitals/I&O Vital Signs Date Time Temp Pulse Resp B/P Pulse Ox O2 Delivery O2 Flow Rate FiO2 04/01/17 21:01 110 29 124/68 04/01/17 20:01 98.8 96 04/01/17 19:00 Nasal Cannula 0.30 03/31/17 07:05 21 Labs Laboratory Tests Test 04/01/17 04/01/17 14:00 17:05 Sodium Level 144 Potassium Level 3.4 Chloride Level 108 Carbon Dioxide Level 26.9 Anion Gap 9 Blood Urea Nitrogen 28 Creatinine 0.67 Estimat Glomerular Filtration 112 Rate Random Glucose 148 Lactic Acid Level 2.1 1.7 Calcium Level 8.7 Phosphorus Level 1.1 Magnesium Level 2.0 Total Bilirubin 0.8 Aspartate Amino Transf 63 (AST/SGOT) Alanine Aminotransferase 40 (ALT/SGPT) Alkaline Phosphatase 114 Total Protein 7.0 Albumin 2.9 Date/Time Procedure Status Source Growth 03/30/17 22:10 Urine Culture - Preliminary Resulted Urine Catheterized Urine 03/30/17 20:55 Aerobic Blood Culture - Preliminary Resulted Blood Peripheral NO GROWTH IN 2 DAYS 03/30/17 20:55 Anaerobic Blood Culture - Preliminary Resulted Blood Peripheral NO GROWTH IN 2 DAYS Cardiovascular: Regular Lungs: Clear Abdomen: Other (soft much improved, non tender) A/P Assessment and Plan SBO likely due to adhesions- pain resolved, axr shows resolution PLAN ok for regular diet, d/c/ planning non operative mgnt will s/o reconsult if needed Dayton Pina MD Apr 01, 2017 21:53
[2017-04-01] MEDS: MORPHINE SULFATE 8 MG/ML INJ IV PUSH PRN (23:29)
[2017-04-02] VITALS (18 sets, daily range): BP systolic 117–168; BP diastolic 69–96; PULSE 90–118; RESP 16–33; TEMP 97.9–99; O2SAT 90–97
[2017-04-02] MEDS: SODIUM CHLOR 0.45% 1000 ML INJ 1,000 ML IV SCH ×2 (02:37→09:15)
[2017-04-02] MEDS: CHLORHEXIDINE GLUCONATE 2 % 1 PACK (2 CLOTHS)(taper/protocol) TOPICAL SCH (03:36)
[2017-04-02] MEDS: PIPERACIL-TAZO 4.5 GM PREMIX 100 ML IV SCH ×3 (06:34→23:00)
[2017-04-02] MEDS: PHENYTOIN SODIUM 100 MG CAP PO SCH ×2 (08:11→22:43)
[2017-04-02] MEDS: DOCUSATE SODIUM 50 MG/SENNA 8.6 MG TAB PO SCH ×2 (08:11→22:17)
[2017-04-02] MEDS: PRAVASTATIN SOD 80 MG TAB PO SCH (08:11)
[2017-04-02] MEDS: SODIUM CHLORIDE 0.9% FLUSH 10 ML FLUSH IV FLUSH SCH ×2 (08:12→22:17)
[2017-04-02] MEDS: PANTOPRAZOLE SOD 20 MG DELAYED RELEASE TAB PO SCH (08:12)
[2017-04-02] MEDS: FLUCONAZOLE 100 MG TAB PO SCH (08:12)
[2017-04-02] MEDS: LISINOPRIL 10 MG TAB PO SCH (08:12)
[2017-04-02] MEDS ORDERED: QUEtiapine FUMARATE 25 MG TAB PO SCH (09:00)
[2017-04-02 10:49] LABS: AUTOMATED NEUTROPHIL # 7.6 TH/MM3 (1.8-7.7); BASOPHIL % 0.2 % (0.0-2.0); EOSINOPHIL # 0.1 TH/MM3 (0-0.4); EOSINOPHIL % 1.1 % (0.0-4.0); HEMATOCRIT 36.1 % (39.0-51.0); LYMPH % 7.7 % (9.0-44.0); LYMPHOCYTE # 0.7 TH/MM3 (1.0-4.8); MEAN CELL VOLUME 96.3 FL (80.0-100.0); MEAN CORPUSCULAR HEMOGLOBIN 31.9 PG (27.0-34.0); MEAN CORPUSCULAR HGB CONC 33.1 % (32.0-36.0); MONO % 7.4 % (0.0-8.0); NEUT % 83.6 % (16.0-70.0); PLATELET COUNT 123 TH/MM3 (150-450); RED BLOOD COUNT 3.75 MIL/MM3 (4.50-5.90); RED CELL DISTRIBUTION WIDTH 12.7 % (11.6-17.2); WHITE BLOOD COUNT 9.1 TH/MM3 (4.0-11.0)
[2017-04-02 11:00] LABS: CHLORIDE 105 MEQ/L (98-107); POTASSIUM 3.3 MEQ/L (3.5-5.1); SODIUM (NA) 139 MEQ/L (136-145)
[2017-04-02 11:05] LABS: ANION GAP 8 MEQ/L (5-15); BICARBONATE 26.1 MEQ/L (21.0-32.0); MAGNESIUM 1.7 MG/DL (1.5-2.5)
[2017-04-02 11:06] LABS: HEMO FLAGS AUTO DIFF
[2017-04-02 11:59] LABS: ALKALINE PHOSPHATASE 120 U/L (45-117); ALT (GPT) 38 U/L (12-78); AST (GOT) 47 U/L (15-37); BLOOD UREA NITROGEN 16 MG/DL (7-18); GLOMERULAR FILTRATION RATE 101 ML/MIN (>89); PLATELET ESTIMATE SMEAR NORMAL (NORMAL); PLATELET MORPHOLOGY NORMAL (NORMAL); SCAN/DIFF AUTO DIFF CONFIRMED; TOTAL BILIRUBIN ADULT 0.8 MG/DL (0.2-1.0)
--- NOTE | 2017-04-02 14:23 | HHI.PR ---
Subjective Remarks Denies abdominal pain as per RN patient has been very pleasant and compliant with treatment. Sitter at bedside K low at 3.3 Objective Vitals Vital Signs Date Time Temp Pulse Resp B/P Pulse Ox O2 Delivery O2 Flow Rate FiO2 04/02/17 13:00 98.2 90 26 140/84 94 04/02/17 12:00 102 22 125/73 96 04/02/17 11:00 108 24 132/74 91 04/02/17 10:00 118 22 120/78 92 04/02/17 09:00 96 16 117/86 93 04/02/17 08:00 96 04/02/17 08:00 97.9 102 22 147/74 95 04/02/17 07:00 94 Nasal Cannula 3.00 Humidified 04/02/17 07:00 104 24 139/81 95 04/02/17 06:00 104 21 149/90 97 04/02/17 05:00 104 22 124/69 93 04/02/17 04:26 98.5 106 24 117/72 04/02/17 04:00 101 04/02/17 03:00 89 Nasal Cannula 4.00 04/02/17 02:03 106 28 140/76 94 04/02/17 01:01 114 33 147/81 94 04/02/17 00:01 110 29 151/82 94 04/02/17 00:00 110 04/01/17 23:34 18 04/01/17 22:01 112 28 128/65 96 04/01/17 21:01 110 29 124/68 04/01/17 20:01 98.8 114 33 151/76 96 04/01/17 20:00 110 04/01/17 19:44 94 Nasal Cannula 2.00 04/01/17 19:03 106 38 151/78 88 04/01/17 19:00 96 Nasal Cannula 0.30 04/01/17 18:00 116 28 141/68 92 04/01/17 17:00 102 32 147/66 92 04/01/17 16:00 112 04/01/17 16:00 98.6 112 22 141/73 93 04/01/17 15:00 95 Nasal Cannula 2.00 Humidified 04/01/17 15:00 102 36 132/91 95 I/O 04/01/17 04/01/17 04/01/17 04/02/176/17 7/6/17 07:00 15:00 23:00 07:00 15:00 23:00 Intake Total 1348 ml 1614 ml 1258 ml Output Total 300 ml 125 ml 1850 ml 825 ml Balance -300 ml 1223 ml -236 ml 433 ml Intake Oral 600 ml 540 ml 240 ml IV Total 748 ml 1074 ml 1018 ml Output Urine Total 300 ml 125 ml 1850 ml 825 ml # Voids 4 2 # Bowel Movements 0 0 0 Result Diagram: 04/02/17 1010 04/02/17 1010 Imaging Last Impressions Abdomen X-Ray 04/01/17 0600 Signed Impressions: Service Date/Time: Saturday, April 01, 2017 08:25 - CONCLUSION: Improved bowel gas pattern compared to the prior examination. Luis Manuel Slaughter MD Chest X-Ray 04/01/17 0000 Signed Impressions: Service Date/Time: Saturday, April 01, 2017 13:38 - CONCLUSION: 1. Slight increased interstitial prominence consistent with mild positive fluid balance superimposed on chronic interstitial change. 2. Ill-defined focal region of increased opacity in the right midlung may reflect summation of shadows although developing airspace disease cannot be excluded. Hung Dash MD Small Bowel X-Ray 03/30/17 0000 Signed Impressions: Service Date/Time: Thursday, March 30, 2017 10:13 - CONCLUSION: 1. Dilated proximal and mid small bowel measuring up to 6 cm. Secondary to vomiting and placement of nasogastric tube, the procedure was not continued. Evaluation for small bowel obstruction is incomplete. 2. Gastroesophageal reflux. 3. Diverticulum arising from the second portion of the duodenum. Landon Chen MD ADDENDUM: This addendum is created to clarify the timing of the small bowel follow-through examination. The final image obtained was at 4 hours post contrast ingestion, not 2 hours as indicated above. However, even at 4 hours contrast did not reach the colon. Landon Chen MD Abdomen/Pelvis CT 03/29/17 1202 Signed Impressions: Service Date/Time: Wednesday, March 29, 2017 13:05 - CONCLUSION: 1. Dilatation of multiple proximal small bowel loops with distal decompression characteristic of a small bowel obstruction. There is some fecalization of small bowel contents proximal to the obstruction. 2. Partial colectomy on the right. Colonic diverticulosis without diverticulitis. 3. Postoperative cholecystectomy with residual biliary ductal dilatation similar to 2016. 4. Patchy airspace disease at the lung bases. Andrae Kay MD Objective Remarks GENERAL: AOX3, NAD. SKIN: Warm and dry. HEAD: Normocephalic. EYES: No scleral icterus. No injection or drainage. NECK: Supple, trachea midline. No JVD or lymphadenopathy. CARDIOVASCULAR: Regular rate and rhythm without murmurs, gallops, or rubs. RESPIRATORY: Crackles in the left base. No wheezing or rhonchi auscultated. GASTROINTESTINAL: Abdomen soft, non-tender. No appreciable bowel sound. MUSCULOSKELETAL: No cyanosis, or edema. BACK: Nontender without obvious deformity. No CVA tenderness. Procedures None. Medications and IVs Current Medications Medications (Trade) Dose Ordered Sig/Sera Route Start Time Stop Time Status Last Admin (NS Flush) 2 ml UNSCH PRN IV FLUSH 03/29/17 14:15 (NS Flush) 2 ml BID IV FLUSH 03/29/17 21:00 (Tylenol) 650 mg Q4H PRN PO 03/29/17 14:15 04/01/17 02:37 (Zofran Inj) 4 mg Q6H PRN IVP 03/29/17 14:15 03/30/17 09:29 (Narcan Inj) 0.4 mg UNSCH PRN IV 03/29/17 14:15 (Olimpia-Colace) 1 tab BID PO 03/29/17 21:00 04/02/17 08:11 (Milk Of Magnesia Liq) 30 ml Q12H PRN PO 03/29/17 14:15 (Senokot) 17.2 mg Q12H PRN PO 03/29/17 14:15 (Dulcolax Supp) 10 mg DAILY PRN RECTAL 03/29/17 14:15 (Lactulose Liq) 30 ml DAILY PRN PO 03/29/17 14:15 (Prinivil) 10 mg DAILY PO 03/30/17 09:00 04/02/17 08:12 (Dilantin) 200 mg BID PO 03/29/17 21:00 04/02/17 08:11 (Protonix) 20 mg DAILY PO 03/30/17 09:00 04/02/17 08:12 (Pravachol) 80 mg DAILY PO 03/30/17 09:00 04/02/17 08:11 (Morphine Inj) 4 mg Q3H PRN IV PUSH 03/29/17 15:30 04/01/17 23:29 (Compazine Inj) 5 mg Q4H PRN IV PUSH 03/29/17 18:45 03/30/17 11:16 (Haldol Inj) 2 mg Q6H PRN IM 03/30/17 15:30 03/30/17 19:09 Miscellaneous Information Patient in critical care unit? Ass... Q361D .XX 03/31/17 11:00 (Chlorhexidine 2% Cloth) 3 pack DAILY@04 TOPICAL 04/01/17 04:00 04/05/17 04:01 04/02/17 03:36 Chlorhexidine Gluconate 3 pack 3 pack UNSCH PRN TOPICAL 03/31/17 11:00 04/05/17 10:51 Sodium Chloride 1,000 ml @ 150 mls/hr Q6H40M IV 04/01/17 13:15 04/02/17 02:37 (Zosyn 4.5 Gm Premix) 100 ml @ 200 mls/hr Q8H IV 04/01/17 15:00 04/02/17 06:34 (Diflucan) 100 mg DAILY PO 04/01/17 14:00 04/02/17 08:12 (SEROquel) 25 mg BID@09,12 PO 04/02/17 09:00 04/02/17 08:12 (Desyrel) 50 mg HS PO 04/01/17 21:00 04/01/17 20:50 A/P Problem List: (1) Severe sepsis ICD Code: A41.9 Status: Acute Plan: Mr. Banks is a pleasant 89 year old male with a history of subtotal gastrectomy who presents to the ED due to diffuse abdominal pain, nausea, vomiting that started last night. He denies any fever, chills. His last BM was two days ago. He reports no flatus. CT abd/pelvis shows multiple proximal small bowel dilatation indicating small bowel obstruction. Severe sepsis resolved admission, patient with heart rate 100, respiratory rate more than 20 and elevated lactic acid of 2.2. Chest x-ray reviewed by me shows slight increase interstitial prominence and ill -defined focal region of increased opacity in the right middle lung. Patient has shortness of breath and is hypoxemic requiring elevated levels of oxygen likely secondary to aspiration pneumonia reflected by right mid lung infiltrate. Cefepime discontinued on 04/01 and patient started on IV Zosyn to cover for aspiration pneumonia Continue to supplement oxygen to keep an oxygen saturation more than 92% 04/02 continue IV Zosyn, continue to provide supplemental oxygen to keep oxygen saturation > 92%. Patient still tachycardic and slightly tachypneic. (2) PNA (pneumonia) ICD Code: J18.9 Status: Acute Plan: Likely aspiration pneumonia. Continue IV Zosyn. Continue supplemental oxygen to keep oxygen saturation 192% Seems to be improving with decreased oxygen requirement. (3) UTI (urinary tract infection) ICD Code: N39.0 Status: Acute Plan: UA with WBCs and red blood cells in the urine. Yeast also found on urinalysis. I will add fluconazole and continue IV Zosyn as above. 04/02 urine culture growing strep viridans. Continue antibiotics as above. Follow-up urine sensitivities. (4) Small bowel obstruction ICD Code: K56.69 Status: Resolved Plan: Patient initially placed on nothing by mouth status. KUB on shows small bowel dilatation. General surgery consulted Thought to be secondary to adhesions Treated with stool softeners and lactulose. Continue. Abdominal x-ray on 04/01 showed Improved bowel gas pattern. Surgery cleared patient for discharge, abdominal pain resolved. (5) Hypertension ICD Code: I10 Status: Chronic Plan: Seems to be stable. Continue lisinopril. (6) Seizure disorder ICD Code: G40.909 Status: Chronic Plan: Stable. Continue Dilantin. (7) Agitation ICD Code: R45.1 Status: Acute Plan: Continue Haldol when necessary. Will continue Seroquel 25 mg in am and increase dose to 50 mg at bedtime Continue sitter appetite since patient has been disruptive to treatment. (8) Elevated lactic acid level ICD Code: R79.89 Status: Acute Plan: Secondary to severe sepsis due to urinary tract infection. Continue IV antibiotics as above. Elevated lactic acid level resolved after IV fluid administration. Discontinue IV fluids since RN states that patient started to get crackles at bases earlier today. (9) Hypokalemia ICD Code: E87.6 Status: Acute Plan: Replace orally and continue to monitor BMP. (10) Hypophosphatemia ICD Code: E83.39 Status: Acute Plan: Likely secondary to poor oral intake. I will replace with Neutra-Phos orally. Continue to monitor levels. Assessment and Plan DVT prophylaxis: SCDs, continue heparin subcutaneously. Discharge Planning Okay to transfer to the medical floor. Discharge pending Problem Qualifiers (1) PNA (pneumonia): Qualified Code: J69.0 - Aspiration pneumonia of right middle lobe, unspecified aspiration pneumonia type (2) UTI (urinary tract infection): Qualified Code: N30.01 - Acute cystitis with hematuria (3) Hypertension: Qualified Code: I10 - Essential hypertension Riccardo Gan MD Apr 02, 2017 14:23
[2017-04-02] MEDS ORDERED: POTASSIUM CHLORIDE 10 MEQ CONTROLLED RELEASE TAB PO ONE (14:30)
--- NOTE | 2017-04-02 18:04 | EKG ---
Date Performed: 04/01/2017 Time Performed: 13:55:57 PTAGE: 89 years EKG: ELECTRONIC VENTRICULAR PACEMAKER ABNORMAL RHYTHM ECG INTERPRETATION BASED ON A DEFAULT AGE OF 40 YEARS PREVIOUS TRACING : 03/29/2017 12.11 Compared to prior tracing no significant change DOCTOR: Jackelyn Beard Interpretating Date/Time 04/02/2017 18:03:31
[2017-04-02] MEDS: POTASSIUM PHOSPHATE/SODIUM PHOSPHATE 250 MG TAB PO SCH ×2 (18:11→22:17)
[2017-04-02] MEDS: traZODone HCL 50 MG TAB PO SCH (22:17)
[2017-04-02] MEDS: QUEtiapine FUMARATE 25 MG TAB PO SCH (22:43)
[2017-04-03] VITALS (9 sets, daily range): BP systolic 115–163; BP diastolic 73–93; PULSE 87–114; RESP 18–22; TEMP 98.2–101.2; O2SAT 91–95
[2017-04-03] MEDS ORDERED: CLINDAMYCIN 150 MG CAP PO ONE
[2017-04-03] MEDS: POTASSIUM PHOSPHATE/SODIUM PHOSPHATE 250 MG TAB PO SCH ×4 (00:53→22:03)
[2017-04-03] MEDS: CHLORHEXIDINE GLUCONATE 2 % 1 PACK (2 CLOTHS)(taper/protocol) TOPICAL SCH (04:00)
[2017-04-03] MEDS: ACETAMINOPHEN 325 MG TAB PO PRN (06:01)
[2017-04-03] MEDS: PIPERACIL-TAZO 4.5 GM PREMIX 100 ML IV SCH ×2 (07:00→14:40)
[2017-04-03] MEDS: SODIUM CHLORIDE 0.9% FLUSH 10 ML FLUSH IV FLUSH SCH ×2 (10:26→22:05)
[2017-04-03] MEDS: FLUCONAZOLE 100 MG TAB PO SCH (10:27)
[2017-04-03] MEDS: QUEtiapine FUMARATE 25 MG TAB PO SCH ×2 (10:27→22:04)
[2017-04-03] MEDS: LISINOPRIL 10 MG TAB PO SCH (10:27)
[2017-04-03] MEDS: DOCUSATE SODIUM 50 MG/SENNA 8.6 MG TAB PO SCH ×2 (10:27→22:04)
[2017-04-03] MEDS: PHENYTOIN SODIUM 100 MG CAP PO SCH ×2 (10:27→22:04)
[2017-04-03] MEDS: PRAVASTATIN SOD 80 MG TAB PO SCH (10:27)
[2017-04-03] MEDS: PANTOPRAZOLE SOD 20 MG DELAYED RELEASE TAB PO SCH (10:27)
[2017-04-03 11:48] LABS: HEMATOCRIT 37.3 % (39.0-51.0); MEAN CELL VOLUME 96.1 FL (80.0-100.0); MEAN CORPUSCULAR HEMOGLOBIN 31.4 PG (27.0-34.0); MEAN CORPUSCULAR HGB CONC 32.7 % (32.0-36.0); PLATELET COUNT 134 TH/MM3 (150-450); RED BLOOD COUNT 3.88 MIL/MM3 (4.50-5.90); RED CELL DISTRIBUTION WIDTH 12.7 % (11.6-17.2); WHITE BLOOD COUNT 9.3 TH/MM3 (4.0-11.0)
[2017-04-03 11:55] LABS: REVIEW FLAG FINAL
[2017-04-03] MEDS: VANCOMYCIN INJ 1,000 MG in SODIUM CHLOR 0.9% 250 ML INJ 250 ML IV SCH ×2 (11:55→22:08)
[2017-04-03 11:57] LABS: POTASSIUM 3.5 MEQ/L (3.5-5.1)
[2017-04-03 12:00] LABS: BICARBONATE 29.5 MEQ/L (21.0-32.0)
--- NOTE | 2017-04-03 12:25 | HHI.PR ---
Subjective Remarks Had a fever last night w a Tmax 101.2 c/o cough, denies sob on 3 liters nasal canula. Objective Vitals Vital Signs Date Time Temp Pulse Resp B/P Pulse Ox O2 Delivery O2 Flow Rate FiO2 04/03/17 08:00 92 Nasal Cannula 3.00 04/03/17 08:00 98.2 101 18 119/86 91 04/03/17 06:00 95 Nasal Cannula 3.00 04/03/17 04:00 101.2 111 22 115/83 95 04/03/17 00:15 Nasal Cannula 3.00 04/03/17 00:00 99.9 114 21 123/73 94 04/02/17 20:45 Nasal Cannula 3.00 04/02/17 20:30 99.0 93 20 168/96 91 04/02/17 16:00 110 27 141/81 92 04/02/17 14:15 110 27 145/89 90 04/02/17 13:00 98.2 90 26 140/84 94 I/O 04/02/17 04/02/17 04/02/17 04/03/17 04/03/17 04/03/17 07:00 15:00 23:00 07:00 15:00 23:00 Intake Total 1258 ml 950 ml 240 ml Output Total 825 ml 975 ml Balance 433 ml -25 ml 240 ml Intake Oral 240 ml 300 ml 240 ml IV Total 1018 ml 650 ml Output Urine Total 825 ml 975 ml # Voids 7 1 1 # Bowel Movements 0 3 0 1 Result Diagram: 04/03/17 1130 04/03/17 1130 Imaging Last Impressions Chest X-Ray 04/03/17 0000 Signed Impressions: Service Date/Time: Monday, April 03, 2017 12:51 - CONCLUSION: No significant interval change with the interstitial pulmonary infiltrates bilaterally suggestive of edema. No change in the focal infiltrate in the right midlung. Luis Manuel Slaughter MD Abdomen X-Ray 04/01/17 0600 Signed Impressions: Service Date/Time: Saturday, April 01, 2017 08:25 - CONCLUSION: Improved bowel gas pattern compared to the prior examination. Luis Manuel Slaughter MD Small Bowel X-Ray 03/30/17 0000 Signed Impressions: Service Date/Time: Thursday, March 30, 2017 10:13 - CONCLUSION: 1. Dilated proximal and mid small bowel measuring up to 6 cm. Secondary to vomiting and placement of nasogastric tube, the procedure was not continued. Evaluation for small bowel obstruction is incomplete. 2. Gastroesophageal reflux. 3. Diverticulum arising from the second portion of the duodenum. Landon Chen MD ADDENDUM: This addendum is created to clarify the timing of the small bowel follow-through examination. The final image obtained was at 4 hours post contrast ingestion, not 2 hours as indicated above. However, even at 4 hours contrast did not reach the colon. Landon Chen MD Abdomen/Pelvis CT 03/29/17 1202 Signed Impressions: Service Date/Time: Wednesday, March 29, 2017 13:05 - CONCLUSION: 1. Dilatation of multiple proximal small bowel loops with distal decompression characteristic of a small bowel obstruction. There is some fecalization of small bowel contents proximal to the obstruction. 2. Partial colectomy on the right. Colonic diverticulosis without diverticulitis. 3. Postoperative cholecystectomy with residual biliary ductal dilatation similar to 2016. 4. Patchy airspace disease at the lung bases. Andrae Kay MD Objective Remarks GENERAL: AOX3, NAD. SKIN: Warm and dry. HEAD: Normocephalic. EYES: No scleral icterus. No injection or drainage. NECK: Supple, trachea midline. No JVD or lymphadenopathy. CARDIOVASCULAR: Regular rate and rhythm without murmurs, gallops, or rubs. RESPIRATORY: Crackles in the left base. No wheezing or rhonchi auscultated. GASTROINTESTINAL: Abdomen soft, non-tender. No appreciable bowel sound. MUSCULOSKELETAL: No cyanosis, or edema. BACK: Nontender without obvious deformity. No CVA tenderness. Procedures None. Medications and IVs Current Medications Medications (Trade) Dose Ordered Sig/Sera Route Start Time Stop Time Status Last Admin (NS Flush) 2 ml UNSCH PRN IV FLUSH 03/29/17 14:15 (NS Flush) 2 ml BID IV FLUSH 03/29/17 21:00 04/03/17 10:26 (Tylenol) 650 mg Q4H PRN PO 03/29/17 14:15 04/03/17 06:01 (Zofran Inj) 4 mg Q6H PRN IVP 03/29/17 14:15 03/30/17 09:29 (Narcan Inj) 0.4 mg UNSCH PRN IV 03/29/17 14:15 (Olimpia-Colace) 1 tab BID PO 03/29/17 21:00 04/03/17 10:27 (Milk Of Magnesia Liq) 30 ml Q12H PRN PO 03/29/17 14:15 (Senokot) 17.2 mg Q12H PRN PO 03/29/17 14:15 (Dulcolax Supp) 10 mg DAILY PRN RECTAL 03/29/17 14:15 (Lactulose Liq) 30 ml DAILY PRN PO 03/29/17 14:15 (Prinivil) 10 mg DAILY PO 03/30/17 09:00 04/03/17 10:27 (Dilantin) 200 mg BID PO 03/29/17 21:00 04/03/17 10:27 (Protonix) 20 mg DAILY PO 03/30/17 09:00 04/03/17 10:27 (Pravachol) 80 mg DAILY PO 03/30/17 09:00 04/03/17 10:27 (Morphine Inj) 4 mg Q3H PRN IV PUSH 03/29/17 15:30 04/01/17 23:29 (Compazine Inj) 5 mg Q4H PRN IV PUSH 03/29/17 18:45 03/30/17 11:16 (Haldol Inj) 2 mg Q6H PRN IM 03/30/17 15:30 03/30/17 19:09 Miscellaneous Information Patient in critical care unit? Ass... Q361D .XX 03/31/17 11:00 (Chlorhexidine 2% Cloth) 3 pack DAILY@04 TOPICAL 04/01/17 04:00 04/05/17 04:01 04/02/17 03:36 Chlorhexidine Gluconate 3 pack 3 pack UNSCH PRN TOPICAL 03/31/17 11:00 04/05/17 10:51 (Zosyn 4.5 Gm Premix) 100 ml @ 200 mls/hr Q8H IV 04/01/17 15:00 04/02/17 14:13 (Diflucan) 100 mg DAILY PO 04/01/17 14:00 04/03/17 10:27 (Desyrel) 50 mg HS PO 04/01/17 21:00 04/02/17 22:17 (K-Phos Neutral) 250 mg Q6H PO 04/02/17 14:30 04/03/17 10:26 Quetiapine Fumarate 25 mg 25 mg Q12HR PO 04/02/17 21:00 04/03/17 10:27 (Vancomycin Inj/ NS 250 ml Inj) 250 ml @ 250 mls/hr Q12H IV 04/03/17 12:00 04/03/17 11:55 A/P Problem List: (1) Severe sepsis ICD Code: A41.9 Status: Acute Plan: Mr. Banks is a pleasant 89 year old male with a history of subtotal gastrectomy who presents to the ED due to diffuse abdominal pain, nausea, vomiting that started last night. He denies any fever, chills. His last BM was two days ago. He reports no flatus. CT abd/pelvis shows multiple proximal small bowel dilatation indicating small bowel obstruction. Severe sepsis resolved admission, patient with heart rate 100, respiratory rate more than 20 and elevated lactic acid of 2.2. Chest x-ray reviewed by me shows slight increase interstitial prominence and ill -defined focal region of increased opacity in the right middle lung. Patient has shortness of breath and is hypoxemic requiring elevated levels of oxygen likely secondary to aspiration pneumonia reflected by right mid lung infiltrate. Cefepime discontinued on 04/01 and patient started on IV Zosyn to cover for aspiration pneumonia Continue to supplement oxygen to keep an oxygen saturation more than 92% 04/02 continue IV Zosyn, continue to provide supplemental oxygen to keep oxygen saturation > 92%. Patient still tachycardic and slightly tachypneic. 04/03 Patient still febrile. Will Add IV Vancomycin and consult infectious disease. (2) PNA (pneumonia) ICD Code: J18.9 Status: Acute Plan: Likely aspiration pneumonia. Continue IV Zosyn. Continue supplemental oxygen to keep oxygen saturation 192% Seems to be improving with decreased oxygen requirement. 04/03 Add Iv Vancomycin, repeat cxr. (3) UTI (urinary tract infection) ICD Code: N39.0 Status: Acute Plan: UA with WBCs and red blood cells in the urine. Yeast also found on urinalysis. I will add fluconazole and continue IV Zosyn as above. 04/02 urine culture growing strep viridans. Continue antibiotics as above. Follow-up urine sensitivities. 04/03 urine sensitivities still pending. (4) Small bowel obstruction ICD Code: K56.69 Status: Resolved Plan: Patient initially placed on nothing by mouth status. KUB on shows small bowel dilatation. General surgery consulted Thought to be secondary to adhesions Treated with stool softeners and lactulose. Continue. Abdominal x-ray on 04/01 showed Improved bowel gas pattern. Surgery cleared patient for discharge, abdominal pain resolved. (5) Hypertension ICD Code: I10 Status: Chronic Plan: Seems to be stable. Continue lisinopril. (6) Seizure disorder ICD Code: G40.909 Status: Chronic Plan: Stable. Continue Dilantin. (7) Agitation ICD Code: R45.1 Status: Acute Plan: Continue Haldol when necessary. 04/03 patient agitated and better after the patient started on Seroquel. Continue Seroquel 25 mg in a.m. and 50 mg at bedtime. (8) Elevated lactic acid level ICD Code: R79.89 Status: Acute Plan: Secondary to severe sepsis due to urinary tract infection. Continue IV antibiotics as above. Elevated lactic acid level resolved after IV fluid administration. Off Iv fluids. (9) Hypokalemia ICD Code: E87.6 Status: Acute Plan: Replace orally and continue to monitor BMP. (10) Hypophosphatemia ICD Code: E83.39 Status: Acute Plan: Likely secondary to poor oral intake. Continue to replace with Neutra- Phos orally. Continue to monitor levels. (11) Hyperglycemia ICD Code: R73.9 Status: Acute Plan: No past medical history of diabetes mellitus. We'll check hemoglobin A1c. I will place on SSI with insulin NovoLog and monitor Accu-Cheks. Assessment and Plan DVT prophylaxis: SCDs, continue heparin subcutaneously. Discharge Planning Patient still with persistent fevers. Discharge pending ID consultation, hemoglobin A1c, physical therapy evaluation. Problem Qualifiers (1) PNA (pneumonia): Qualified Code: J69.0 - Aspiration pneumonia of right middle lobe, unspecified aspiration pneumonia type (2) UTI (urinary tract infection): Qualified Code: N30.01 - Acute cystitis with hematuria (3) Hypertension: Qualified Code: I10 - Essential hypertension Riccardo Gan MD Apr 03, 2017 12:25
--- NOTE | 2017-04-03 13:00 | RADRPT ---
EXAM DATE/TIME: 04/03/2017 12:51 [facility] COMPARISON: CHEST SINGLE AP, March 30, 2017, 20:42. CHEST SINGLE AP, April 01, 2017, 13:38. INDICATIONS : Short of breath. MEDICAL HISTORY : Hypertension. Cardiovascular disease. SURGICAL HISTORY : Pacemaker. ENCOUNTER: Subsequent ACUITY: 4 - 6 days PAIN SCORE: 0/10 LOCATION: Bilateral chest FINDINGS: A single view of the chest demonstrates persistent interstitial changes bilaterally suggestive of mos t likely some edema. There continues to be a focal infiltrate in the right midlung which is stable. N o definite pleural effusions. The heart size is stable. There is a pacemaker on the right chest. Comp ared to the prior exam there have been no significant changes. CONCLUSION: No significant interval change with the interstitial pulmonary infiltrates bilaterally suggestive of edema. No change in the focal infiltrate in the right midlung. Luis Manuel Slaughter MD on April 03, 2017 at 12:56 Board Certified Radiologist. This report was verified electronically.
[2017-04-03] MEDS ORDERED: POTASSIUM CHLORIDE 20 MEQ CONTROLLED RELEASE TAB PO ONE (15:00)
--- NOTE | 2017-04-03 17:33 | MB ---
cc: LAURA CHARLES MD DATE OF CONSULTATION 04/03/[address] Jennings REASON FOR CONSULTATION Fevers. HISTORY OF PRESENT ILLNESS This is an 89-year-old white male who was admitted to the hospital after presenting to the emergency department with nausea, vomiting and abdominal pain. The patient was found to have abdominal obstruction and was treated conservatively. He was afebrile on admission and white blood cell count was normal. Abdominal x-ray on admission with a CT scan showed dilatation of the small bowel proximal loop characteristic of small bowel obstruction. The patient had elevated temperature of 102.1 degrees on 03/30. He was started on antibiotics. His temperature improved. The white blood cell count was normal and has remained normal throughout the hospitalization. The patient was noted to have become agitated and pulled out his NG tube on 03/31. He was treated with Haldol. He was felt to have developed possible chemical pneumonitis also from aspiration. He currently has a cough but is not producing sputum. He sounds congested He had a temperature spike of 101.2 degrees early today. Blood cultures which were obtained on 03/30 have no growth. Urine culture from 03/30 had less than 10,000 colonies of viridans strep. He was started on vancomycin today. PAST MEDICAL HISTORY 1. Partial gastrectomy 2. Hernia repair, 3. Cholecystectomy. 4. Pacemaker implantation 5. Seizure disorder, 6. History of cataract surgery 7. Multiple small bowel obstruction episodes 8. Colon cancer, 9. Hypertension. ALLERGIES PHENERGAN MEDICATIONS 1. Vancomycin 2. Piperacillin/tazobactam 3. Desyrel 4. Seroquel. 5. DuoNeb. 6. Haldol p.r.n. 7. Prinivil. 8. Protonix. 9. Pravachol 10. Dilantin SOCIAL HISTORY No tobacco, no alcohol. No illicit drugs. FAMILY HISTORY Noncontributory. REVIEW OF SYSTEMS Significant for cough. Otherwise, the patient denies 10-point review. PHYSICAL EXAMINATION This is a moderately obese male who is in no acute distress. He is somewhat somnolent, but he easily arouses and responds to questions appropriately. He looks chronically ill. VITAL SIGNS: Temperature of 98.2. BP 121/74, respirations 19, heart rate 89. HEENT: Head is atraumatic. Extraocular movements grossly intact, pupils reactive to light without icterus. Oropharynx moist mucosa. No lesions. NECK: Supple. No adenopathy. LUNGS: Decreased breath sounds throughout. HEART: Distant S1 and S2 without audible murmurs. ABDOMEN: Bowel sounds present but markedly diminished, distended, soft, nontender. RECTAL: Not performed. EXTREMITIES: No clubbing, cyanosis or edema. SKIN: No rash. NEUROLOGIC: No gross focal findings. The patient is alert and oriented. LABORATORY DATA WBC 9.3, platelets 134, hemoglobin 12.2, creatinine 0.79, BUN 14, sodium 142, AST 47, ALT 38. IMPRESSION 1. Fever in patient with small bowel obstruction 2. Cough without sputum production and abnormal chest x-ray suggesting possible pneumonia. The patient was felt to have possibly aspirated a few days ago. 3. Urine culture with viridans strep group less than 10,000 colonies and without significant symptomatology. 4. Possible drug fever since the patient has had normal white blood cell count despite elevation of the temperature. RECOMMENDATIONS 1. Piperacillin/tazobactam. 2. Continue vancomycin for now 3. Obtain blood culture if the temperature increases again and also repeat the urine culture if the temperature increases. 4. Follow the temperature and clinical status. Thank you this consultation. I will follow the patient's progress and make further recommendations on followup if necessary. Laura Charles MD FD/ /3:57 PM /5:18 PM
[2017-04-03] MEDS: traZODone HCL 50 MG TAB PO SCH (22:03)
[2017-04-04] VITALS (11 sets, daily range): BP systolic 116–156; BP diastolic 59–86; PULSE 97–118; RESP 17–20; TEMP 97.7–101.4; O2SAT 84–96
[2017-04-04] MEDS: POTASSIUM PHOSPHATE/SODIUM PHOSPHATE 250 MG TAB PO SCH ×4 (02:27→22:06)
[2017-04-04] MEDS: ACETAMINOPHEN 325 MG TAB PO PRN ×2 (02:31→15:36)
[2017-04-04] MEDS: CHLORHEXIDINE GLUCONATE 2 % 1 PACK (2 CLOTHS)(taper/protocol) TOPICAL SCH (04:00)
[2017-04-04 06:38] LABS: HEMATOCRIT 32.3 % (39.0-51.0); MEAN CELL VOLUME 94.7 FL (80.0-100.0); MEAN CORPUSCULAR HGB CONC 33.8 % (32.0-36.0); PLATELET COUNT 143 TH/MM3 (150-450); RED BLOOD COUNT 3.41 MIL/MM3 (4.50-5.90); RED CELL DISTRIBUTION WIDTH 12.8 % (11.6-17.2); REVIEW FLAG FINAL; WHITE BLOOD COUNT 9.1 TH/MM3 (4.0-11.0)
[2017-04-04 06:44] LABS: POTASSIUM 3.1 MEQ/L (3.5-5.1)
[2017-04-04 06:48] LABS: BICARBONATE 30.1 MEQ/L (21.0-32.0)
[2017-04-04 07:53] LABS: MAGNESIUM 1.9 MG/DL (1.5-2.5)
[2017-04-04] MEDS ORDERED: POTASSIUM CHLORIDE 20 MEQ CONTROLLED RELEASE TAB PO ONE (08:00)
[2017-04-04] MEDS: DOCUSATE SODIUM 50 MG/SENNA 8.6 MG TAB PO SCH ×2 (08:27→19:41)
[2017-04-04] MEDS: PRAVASTATIN SOD 80 MG TAB PO SCH (08:27)
[2017-04-04] MEDS: PHENYTOIN SODIUM 100 MG CAP PO SCH ×2 (08:27→22:07)
[2017-04-04] MEDS: QUEtiapine FUMARATE 25 MG TAB PO SCH ×2 (08:27→22:06)
[2017-04-04] MEDS: LISINOPRIL 10 MG TAB PO SCH (08:27)
[2017-04-04] MEDS: PANTOPRAZOLE SOD 20 MG DELAYED RELEASE TAB PO SCH (08:28)
[2017-04-04] MEDS: SODIUM CHLORIDE 0.9% FLUSH 10 ML FLUSH IV FLUSH SCH ×2 (08:28→22:07)
[2017-04-04] MEDS: FLUCONAZOLE 100 MG TAB PO SCH (08:28)
[2017-04-04] MEDS ORDERED: POTASSIUM CHLORIDE 10 MEQ CONTROLLED RELEASE TAB PO ONE (09:30)
[2017-04-04] MEDS: VANCOMYCIN INJ 1,000 MG in SODIUM CHLOR 0.9% 250 ML INJ 250 ML IV SCH (12:31)
--- NOTE | 2017-04-04 13:13 | HHI.PR ---
Subjective Remarks Patient had a low-grade fever with a MAXIMUM TEMPERATURE of 100.7 as per RN patient had episode of diarrhea, as per her suspicious for C diff denies fevers and chills had episode of she desaturation to 84% on room air. Patient now on nasal cannula. As per sitter report the patient has been coughing very frequently. Objective Vitals Vital Signs Date Time Temp Pulse Resp B/P Pulse Ox O2 Delivery O2 Flow Rate FiO2 04/04/17 12:00 97.7 97 18 134/80 93 04/04/17 11:51 92 Nasal Cannula 2.00 04/04/17 11:30 84 21 04/04/17 08:00 97.9 102 17 143/82 92 04/04/17 07:00 Room Air 04/04/17 07:00 118 04/04/17 05:35 99.9 114 18 116/59 92 04/04/17 01:16 100.7 100 18 156/86 96 04/03/17 20:35 94 Nasal Cannula 3.00 04/03/17 20:14 99.2 106 20 147/92 94 04/03/17 20:00 112 04/03/17 20:00 Nasal Cannula 3.00 04/03/17 16:00 98.3 87 20 163/93 93 I/O 04/03/17 04/03/17 04/03/17 04/04/17 04/04/17 04/04/17 07:00 15:00 23:00 07:00 15:00 23:00 Intake Total 370 ml 120 ml Output Total 550 ml Balance 370 ml -430 ml Intake Oral 120 ml IV Total 370 ml Output Urine Total 550 ml # Voids 1 2 # Bowel Movements 1 Result Diagram: 04/04/17 0540 04/04/17 0540 Imaging Last Impressions Chest X-Ray 04/03/17 0000 Signed Impressions: Service Date/Time: Monday, April 03, 2017 12:51 - CONCLUSION: No significant interval change with the interstitial pulmonary infiltrates bilaterally suggestive of edema. No change in the focal infiltrate in the right midlung. Luis Manuel Slaughter MD Abdomen X-Ray 04/01/17 0600 Signed Impressions: Service Date/Time: Saturday, April 01, 2017 08:25 - CONCLUSION: Improved bowel gas pattern compared to the prior examination. Luis Manuel Slaughter MD Small Bowel X-Ray 03/30/17 0000 Signed Impressions: Service Date/Time: Thursday, March 30, 2017 10:13 - CONCLUSION: 1. Dilated proximal and mid small bowel measuring up to 6 cm. Secondary to vomiting and placement of nasogastric tube, the procedure was not continued. Evaluation for small bowel obstruction is incomplete. 2. Gastroesophageal reflux. 3. Diverticulum arising from the second portion of the duodenum. Landon Chen MD ADDENDUM: This addendum is created to clarify the timing of the small bowel follow-through examination. The final image obtained was at 4 hours post contrast ingestion, not 2 hours as indicated above. However, even at 4 hours contrast did not reach the colon. Landon Chen MD Abdomen/Pelvis CT 03/29/17 1202 Signed Impressions: Service Date/Time: Wednesday, March 29, 2017 13:05 - CONCLUSION: 1. Dilatation of multiple proximal small bowel loops with distal decompression characteristic of a small bowel obstruction. There is some fecalization of small bowel contents proximal to the obstruction. 2. Partial colectomy on the right. Colonic diverticulosis without diverticulitis. 3. Postoperative cholecystectomy with residual biliary ductal dilatation similar to 2016. 4. Patchy airspace disease at the lung bases. Andrae Kay MD Objective Remarks GENERAL: AOX3, NAD. SKIN: Warm and dry. HEAD: Normocephalic. EYES: No scleral icterus. No injection or drainage. NECK: Supple, trachea midline. No JVD or lymphadenopathy. CARDIOVASCULAR: Regular rate and rhythm without murmurs, gallops, or rubs. RESPIRATORY: Crackles in the left base. No wheezing or rhonchi auscultated. GASTROINTESTINAL: Abdomen soft, non-tender. No appreciable bowel sound. MUSCULOSKELETAL: No cyanosis, or edema. BACK: Nontender without obvious deformity. No CVA tenderness. Procedures None. Medications and IVs Current Medications Medications (Trade) Dose Ordered Sig/Sera Route Start Time Stop Time Status Last Admin (NS Flush) 2 ml UNSCH PRN IV FLUSH 03/29/17 14:15 (NS Flush) 2 ml BID IV FLUSH 03/29/17 21:00 04/04/17 08:28 (Tylenol) 650 mg Q4H PRN PO 03/29/17 14:15 04/04/17 02:31 (Zofran Inj) 4 mg Q6H PRN IVP 03/29/17 14:15 03/30/17 09:29 (Narcan Inj) 0.4 mg UNSCH PRN IV 03/29/17 14:15 (Olimpia-Colace) 1 tab BID PO 03/29/17 21:00 04/04/17 08:27 (Milk Of Magnesia Liq) 30 ml Q12H PRN PO 03/29/17 14:15 (Senokot) 17.2 mg Q12H PRN PO 03/29/17 14:15 (Dulcolax Supp) 10 mg DAILY PRN RECTAL 03/29/17 14:15 (Lactulose Liq) 30 ml DAILY PRN PO 03/29/17 14:15 (Prinivil) 10 mg DAILY PO 03/30/17 09:00 04/04/17 08:27 (Dilantin) 200 mg BID PO 03/29/17 21:00 04/04/17 08:27 (Protonix) 20 mg DAILY PO 03/30/17 09:00 04/04/17 08:28 (Pravachol) 80 mg DAILY PO 03/30/17 09:00 04/04/17 08:27 (Morphine Inj) 4 mg Q3H PRN IV PUSH 03/29/17 15:30 04/01/17 23:29 (Compazine Inj) 5 mg Q4H PRN IV PUSH 03/29/17 18:45 03/30/17 11:16 (Haldol Inj) 2 mg Q6H PRN IM 03/30/17 15:30 03/30/17 19:09 Miscellaneous Information Patient in critical care unit? Ass... Q361D .XX 03/31/17 11:00 (Chlorhexidine 2% Cloth) 3 pack DAILY@04 TOPICAL 04/01/17 04:00 04/05/17 04:01 04/02/17 03:36 (Chlorhexidine 2% Cloth) 3 pack UNSCH PRN TOPICAL 03/31/17 11:00 04/05/17 10:51 (Diflucan) 100 mg DAILY PO 04/01/17 14:00 04/04/17 08:28 (Desyrel) 50 mg HS PO 04/01/17 21:00 04/03/17 22:03 (K-Phos Neutral) 250 mg Q6H PO 04/02/17 14:30 04/04/17 08:28 Quetiapine Fumarate 25 mg 25 mg Q12HR PO 04/02/17 21:00 04/04/17 08:27 (Vancomycin Inj/ NS 250 ml Inj) 250 ml @ 250 mls/hr Q12H IV 04/03/17 12:00 04/04/17 12:31 Urinary Catheter: No Vascular Central Line Catheter: No A/P Problem List: (1) Severe sepsis ICD Code: A41.9 Status: Acute Plan: Mr. Banks is a pleasant 89 year old male with a history of subtotal gastrectomy who presents to the ED due to diffuse abdominal pain, nausea, vomiting that started last night. He denies any fever, chills. His last BM was two days ago. He reports no flatus. CT abd/pelvis shows multiple proximal small bowel dilatation indicating small bowel obstruction. Severe sepsis present on admission, patient with heart rate 100, respiratory rate more than 20 and elevated lactic acid of 2.2. Chest x-ray reviewed by me shows slight increase interstitial prominence and ill -defined focal region of increased opacity in the right middle lung. Patient has shortness of breath and is hypoxemic requiring elevated levels of oxygen likely secondary to aspiration pneumonia reflected by right mid lung infiltrate. Cefepime discontinued on 04/01 and patient started on IV Zosyn to cover for aspiration pneumonia Continue to supplement oxygen to keep an oxygen saturation more than 92% 04/02 continue IV Zosyn, continue to provide supplemental oxygen to keep oxygen saturation > 92%. Patient still tachycardic and slightly tachypneic. 04/03 Patient still febrile. Will Add IV Vancomycin and consult infectious disease. 04/04 patient is tachycardic, however heart rate is improving. Appreciate ID consultation and recommendations. Fever possibly secondary to drug reaction as per ID. Repeat chest x-ray reviewed by me shows no interval significant change with interstitial pulmonary infiltrates bilaterally suggestive of edema. No change in focal infiltrate in the right mid lung. I will defer antibiotic management as per ID. (2) PNA (pneumonia) ICD Code: J18.9 Status: Acute Plan: Likely aspiration pneumonia. Patient treated with IV Zosyn Continue supplemental oxygen to keep oxygen saturation >92% Seems to be improving with decreased oxygen requirement. 04/03 Add Iv Vancomycin, repeat cxr. 04/04 IV Zosyn discontinued as per ID. repeat chest x-ray as above shows distant right middle lung infiltrate and interstitial pulmonary infiltrates bilaterally. I will start the patient IV cefepime and IV Flagyl. (3) UTI (urinary tract infection) ICD Code: N39.0 Status: Acute Plan: UA with WBCs and red blood cells in the urine. Yeast also found on urinalysis. I will add fluconazole and continue IV Zosyn as above. 04/02 urine culture growing strep viridans. Continue antibiotics as above. Follow-up urine sensitivities. 04/03 urine sensitivities still pending. (4) Small bowel obstruction ICD Code: K56.69 Status: Resolved Plan: Patient initially placed on nothing by mouth status. KUB on shows small bowel dilatation. General surgery consulted Thought to be secondary to adhesions Treated with stool softeners and lactulose. Continue. Abdominal x-ray on 04/01 showed Improved bowel gas pattern. Surgery cleared patient for discharge, abdominal pain resolved. (5) Hypertension ICD Code: I10 Status: Chronic Plan: Seems to be stable. Continue lisinopril. (6) Seizure disorder ICD Code: G40.909 Status: Chronic Plan: Stable. Continue Dilantin. (7) Agitation ICD Code: R45.1 Status: Acute Plan: Patient's agitation has improved significantly after the patient was started on Seroquel. Continue Haldol when necessary. continue sitter at bedside. (8) Elevated lactic acid level ICD Code: R79.89 Status: Acute Plan: Secondary to severe sepsis due to urinary tract infection. Continue IV antibiotics as above. Elevated lactic acid level resolved after IV fluid administration. Off Iv fluids. (9) Hypokalemia ICD Code: E87.6 Status: Acute Plan: Replace orally and continue to monitor BMP. (10) Hypophosphatemia ICD Code: E83.39 Status: Acute Plan: Likely secondary to poor oral intake. Continue to replace with Neutra- Phos orally. Continue to monitor levels. 04/04 phosphorus much improved at 2.3. Continue to replace and monitor levels. (11) Hyperglycemia ICD Code: R73.9 Status: Acute Plan: No past medical history of diabetes mellitus. Hemoglobin A1c ordered and pending. Continue SSI with insulin NovoLog and continue to monitor Accu-Cheks Blood sugars much improved. Continue to monitor Accu-Cheks (12) Diarrhea ICD Code: R19.7 Status: Acute Plan: Check C. difficile toxin PCR and place on contact isolation until C. difficile is ruled out. (13) Acute hypoxemic respiratory failure ICD Code: J96.01 Status: Acute Plan: Suspect likely secondary to pulmonary edema. Chest x-ray as described above shows possible Ommaya vascular congestion and right middle lobe infiltrate. I will give the patient 1 dose of IV Lasix 40 mg IV once now and then start daily. Continue to monitor supplemental oxygen to keep oxygen saturation more than 92% . Patient continues to have oxygen saturation without oxygen, had O2 sat levels dropped to 84% room air. Patient had an echocardiogram in 2010 from which a reviewed the report. Patient had a pattern of mild LVH with normal EF. Pacer wire noted in the right ventricle. I will repeat an echocardiogram. Suspect some degree of congestive heart failure as well which initially seems to be due to acute CHF. Assessment and Plan DVT prophylaxis: SCDs, continue heparin subcutaneously. Discharge Planning Patient still with persistent fevers. Discharge pending ID consultation, hemoglobin A1c, physical therapy evaluation. Problem Qualifiers (1) PNA (pneumonia): Qualified Code: J69.0 - Aspiration pneumonia of right middle lobe, unspecified aspiration pneumonia type (2) UTI (urinary tract infection): Qualified Code: N30.01 - Acute cystitis with hematuria (3) Hypertension: Qualified Code: I10 - Essential hypertension Riccardo Gan MD Apr 04, 2017 13:13
[2017-04-04] MEDS ORDERED: FUROSEMIDE 40 MG/4 ML VIAL IV PUSH ONE ×2 (13:30)
[2017-04-04] MEDS ORDERED: Vancomycin Consult Pharmacy 1 EA OTHER SCH (13:45)
[2017-04-04 15:52] LABS: C. DIFF EPI 027 PRESUMPTIVE NEGATIVE (NEGATIVE); C. DIFF TOXIN PCR NEGATIVE (NEGATIVE)
[2017-04-04] MEDS: traZODone HCL 50 MG TAB PO SCH (22:06)
[2017-04-04] MEDS ORDERED: PHARMACY ORDERED LAB ONE (23:45)
[2017-04-05] VITALS (7 sets, daily range): BP systolic 104–142; BP diastolic 70–88; PULSE 96–106; RESP 17–18; TEMP 97.1–99.4; O2SAT 92–98
[2017-04-05] MEDS: VANCOMYCIN INJ 1,000 MG in SODIUM CHLOR 0.9% 250 ML INJ 250 ML IV SCH (00:11)
[2017-04-05] MEDS: POTASSIUM PHOSPHATE/SODIUM PHOSPHATE 250 MG TAB PO SCH ×4 (02:30→21:57)
[2017-04-05] MEDS: CHLORHEXIDINE GLUCONATE 2 % 1 PACK (2 CLOTHS)(taper/protocol) TOPICAL SCH (04:00)
[2017-04-05] MEDS: PRAVASTATIN SOD 80 MG TAB PO SCH (08:14)
[2017-04-05] MEDS: PHENYTOIN SODIUM 100 MG CAP PO SCH ×2 (08:15→21:58)
[2017-04-05] MEDS: QUEtiapine FUMARATE 25 MG TAB PO SCH ×2 (08:15→21:58)
[2017-04-05] MEDS: SODIUM CHLORIDE 0.9% FLUSH 10 ML FLUSH IV FLUSH SCH ×2 (08:15→21:59)
[2017-04-05] MEDS: LISINOPRIL 10 MG TAB PO SCH (08:15)
[2017-04-05] MEDS: FLUCONAZOLE 100 MG TAB PO SCH (08:15)
[2017-04-05] MEDS: PANTOPRAZOLE SOD 20 MG DELAYED RELEASE TAB PO SCH (08:15)
[2017-04-05] MEDS: DOCUSATE SODIUM 50 MG/SENNA 8.6 MG TAB PO SCH ×2 (08:16→21:58)
[2017-04-05] MEDS ORDERED: CEFEPIME INJ 2,000 MG in SODIUM CHLORIDE 0.9% INJ 100 ML IV SCH (09:00)
[2017-04-05] MEDS: metroNIDAZOLE 500 MG INJ 100 ML IV SCH ×2 (09:36→17:20)
[2017-04-05 10:05] LABS: CHLORIDE 100 MEQ/L (98-107); POTASSIUM 3.4 MEQ/L (3.5-5.1); SODIUM (NA) 139 MEQ/L (136-145)
[2017-04-05 10:09] LABS: ANION GAP 6 MEQ/L (5-15); BICARBONATE 32.6 MEQ/L (21.0-32.0); MAGNESIUM 1.9 MG/DL (1.5-2.5)
[2017-04-05 10:12] LABS: AUTOMATED NEUTROPHIL # 10.4 TH/MM3 (1.8-7.7); BASOPHIL % 0.2 % (0.0-2.0); EOSINOPHIL # 0.5 TH/MM3 (0-0.4); EOSINOPHIL % 4.1 % (0.0-4.0); HEMATOCRIT 36.8 % (39.0-51.0); LYMPH % 9.5 % (9.0-44.0); LYMPHOCYTE # 1.3 TH/MM3 (1.0-4.8); MEAN CELL VOLUME 95.5 FL (80.0-100.0); MEAN CORPUSCULAR HEMOGLOBIN 32.3 PG (27.0-34.0); MEAN CORPUSCULAR HGB CONC 33.9 % (32.0-36.0); MONO % 7.5 % (0.0-8.0); NEUT % 78.7 % (16.0-70.0); PLATELET COUNT 156 TH/MM3 (150-450); RED BLOOD COUNT 3.85 MIL/MM3 (4.50-5.90); RED CELL DISTRIBUTION WIDTH 12.5 % (11.6-17.2); WHITE BLOOD COUNT 13.2 TH/MM3 (4.0-11.0)
[2017-04-05 10:21] LABS: HEMO FLAGS AUTO DIFF
[2017-04-05 10:45] LABS: ALKALINE PHOSPHATASE 130 U/L (45-117); ALT (GPT) 38 U/L (12-78); AST (GOT) 45 U/L (15-37); BLOOD UREA NITROGEN 18 MG/DL (7-18); GLOMERULAR FILTRATION RATE 75 ML/MIN (>89); TOTAL BILIRUBIN ADULT 0.6 MG/DL (0.2-1.0)
[2017-04-05 11:05] LABS: SCAN/DIFF AUTO DIFF CONFIRMED
[2017-04-05 12:42] LABS: HEMOGLOBIN A1a 1.3 %; HEMOGLOBIN A1b 2.1 %; HEMOGLOBIN Ao 83.3 %; HEMOGLOBIN LA1C 2.2 %
[2017-04-05] MEDS: VANCOMYCIN INJ 1,250 MG in SODIUM CHLOR 0.9% 250 ML INJ 250 ML IV SCH (14:10)
--- NOTE | 2017-04-05 14:40 | HHI.PR ---
Subjective Remarks Denies diarrhea Patient had fever last night wbc elevated denies cp/sob as per sitter patient is coughing very frequently low K Objective Vitals Vital Signs Date Time Temp Pulse Resp B/P Pulse Ox O2 Delivery O2 Flow Rate FiO2 04/05/17 12:00 98.4 96 18 110/85 94 04/05/17 08:00 98.6 101 17 104/87 92 04/05/17 08:00 93 Nasal Cannula 3.00 04/05/17 04:52 99.3 100 18 114/70 93 04/05/17 00:38 99.2 106 18 136/88 94 04/04/17 20:43 93 Nasal Cannula 3.00 04/04/17 20:16 100.1 100 18 118/68 94 04/04/17 20:00 Nasal Cannula 2.00 21 04/04/17 15:31 101.4 117 20 134/77 90 04/04/17 15:00 117 I/O 04/04/17 04/04/17 04/04/17 04/05/17 04/05/17 04/05/17 07:00 15:00 23:00 07:00 15:00 23:00 Intake Total 120 ml 190 ml 480 ml 250 ml 214 ml Output Total 550 ml 200 ml 400 ml Balance -430 ml -10 ml 80 ml 250 ml 214 ml Intake Oral 120 ml 480 ml IV Total 190 ml 250 ml 214 ml Output Urine Total 550 ml 200 ml 400 ml # Voids 2 2 2 # Bowel Movements 2 Result Diagram: 04/05/17 0915 04/05/17 0915 Imaging Last Impressions Chest X-Ray 04/03/17 0000 Signed Impressions: Service Date/Time: Monday, April 03, 2017 12:51 - CONCLUSION: No significant interval change with the interstitial pulmonary infiltrates bilaterally suggestive of edema. No change in the focal infiltrate in the right midlung. Luis Manuel Slaughter MD Abdomen X-Ray 04/01/17 0600 Signed Impressions: Service Date/Time: Saturday, April 01, 2017 08:25 - CONCLUSION: Improved bowel gas pattern compared to the prior examination. Luis Manuel Slaughter MD Small Bowel X-Ray 03/30/17 0000 Signed Impressions: Service Date/Time: Thursday, March 30, 2017 10:13 - CONCLUSION: 1. Dilated proximal and mid small bowel measuring up to 6 cm. Secondary to vomiting and placement of nasogastric tube, the procedure was not continued. Evaluation for small bowel obstruction is incomplete. 2. Gastroesophageal reflux. 3. Diverticulum arising from the second portion of the duodenum. Landon Chen MD ADDENDUM: This addendum is created to clarify the timing of the small bowel follow-through examination. The final image obtained was at 4 hours post contrast ingestion, not 2 hours as indicated above. However, even at 4 hours contrast did not reach the colon. Landon Chen MD Abdomen/Pelvis CT 03/29/17 1202 Signed Impressions: Service Date/Time: Wednesday, March 29, 2017 13:05 - CONCLUSION: 1. Dilatation of multiple proximal small bowel loops with distal decompression characteristic of a small bowel obstruction. There is some fecalization of small bowel contents proximal to the obstruction. 2. Partial colectomy on the right. Colonic diverticulosis without diverticulitis. 3. Postoperative cholecystectomy with residual biliary ductal dilatation similar to 2016. 4. Patchy airspace disease at the lung bases. Andrae Kay MD Objective Remarks GENERAL: AOX3, NAD. SKIN: Warm and dry. HEAD: Normocephalic. EYES: No scleral icterus. No injection or drainage. NECK: Supple, trachea midline. No JVD or lymphadenopathy. CARDIOVASCULAR: Regular rate and rhythm without murmurs, gallops, or rubs. RESPIRATORY: Crackles in the left base. No wheezing or rhonchi auscultated. GASTROINTESTINAL: Abdomen soft, non-tender. No appreciable bowel sound. MUSCULOSKELETAL: No cyanosis, or edema. BACK: Nontender without obvious deformity. No CVA tenderness. Procedures None. Medications and IVs Current Medications Medications (Trade) Dose Ordered Sig/Sera Route Start Time Stop Time Status Last Admin (NS Flush) 2 ml UNSCH PRN IV FLUSH 03/29/17 14:15 (NS Flush) 2 ml BID IV FLUSH 03/29/17 21:00 04/05/17 08:15 (Tylenol) 650 mg Q4H PRN PO 03/29/17 14:15 04/04/17 15:36 (Zofran Inj) 4 mg Q6H PRN IVP 03/29/17 14:15 03/30/17 09:29 (Narcan Inj) 0.4 mg UNSCH PRN IV 03/29/17 14:15 (Olimpia-Colace) 1 tab BID PO 03/29/17 21:00 04/04/17 08:27 (Milk Of Magnesia Liq) 30 ml Q12H PRN PO 03/29/17 14:15 (Senokot) 17.2 mg Q12H PRN PO 03/29/17 14:15 (Dulcolax Supp) 10 mg DAILY PRN RECTAL 03/29/17 14:15 (Lactulose Liq) 30 ml DAILY PRN PO 03/29/17 14:15 (Prinivil) 10 mg DAILY PO 03/30/17 09:00 04/05/17 08:15 (Dilantin) 200 mg BID PO 03/29/17 21:00 04/05/17 08:15 (Protonix) 20 mg DAILY PO 03/30/17 09:00 04/05/17 08:15 (Pravachol) 80 mg DAILY PO 03/30/17 09:00 04/05/17 08:14 (Morphine Inj) 4 mg Q3H PRN IV PUSH 03/29/17 15:30 04/01/17 23:29 (Compazine Inj) 5 mg Q4H PRN IV PUSH 03/29/17 18:45 03/30/17 11:16 (Haldol Inj) 2 mg Q6H PRN IM 03/30/17 15:30 03/30/17 19:09 Miscellaneous Information Patient in critical care unit? Ass... Q361D .XX 03/31/17 11:00 (Diflucan) 100 mg DAILY PO 04/01/17 14:00 04/05/17 08:15 (Desyrel) 50 mg HS PO 04/01/17 21:00 04/04/17 22:06 (K-Phos Neutral) 250 mg Q6H PO 04/02/17 14:30 04/05/17 14:10 Quetiapine Fumarate 25 mg 25 mg Q12HR PO 04/02/17 21:00 04/05/17 08:15 Pharmacy Profile Note 0 ml @ 0 mls/hr UNSCH OTHER 04/04/17 13:45 Metronidazole 100 ml @ 100 mls/hr Q8H IV 04/05/17 10:00 04/05/17 09:36 (Vancomycin Inj/ NS 250 ml Inj) 262.5 ml @ 250 mls/hr Q18H IV 04/05/17 14:00 04/05/17 14:10 Miscellaneous Information SPECIFIC LAB TO BE DRAWN:VANCOMY... ONCE ONCE .XX 04/07/17 19:45 04/07/17 19:46 (Maxipime Inj/NS Inj) 100 ml @ 200 mls/hr Q12H IV 04/05/17 21:00 Urinary Catheter: No Vascular Central Line Catheter: No A/P Problem List: (1) Severe sepsis ICD Code: A41.9 Status: Acute Plan: Mr. Banks is a pleasant 89 year old male with a history of subtotal gastrectomy who presents to the ED due to diffuse abdominal pain, nausea, vomiting that started last night. He denies any fever, chills. His last BM was two days ago. He reports no flatus. CT abd/pelvis shows multiple proximal small bowel dilatation indicating small bowel obstruction. Severe sepsis present on admission, patient with heart rate 100, respiratory rate more than 20 and elevated lactic acid of 2.2. Chest x-ray reviewed by me shows slight increase interstitial prominence and ill -defined focal region of increased opacity in the right middle lung. Patient has shortness of breath and is hypoxemic requiring elevated levels of oxygen likely secondary to aspiration pneumonia reflected by right mid lung infiltrate. Cefepime discontinued on 04/01 and patient started on IV Zosyn to cover for aspiration pneumonia Continue to supplement oxygen to keep an oxygen saturation more than 92% 04/02 continue IV Zosyn, continue to provide supplemental oxygen to keep oxygen saturation > 92%. Patient still tachycardic and slightly tachypneic. Infectious disease. Fever possibly secondary to drug reaction as per ID. Repeat chest x-ray reviewed by me shows no interval significant change with interstitial pulmonary infiltrates bilaterally suggestive of edema. No change in focal infiltrate in the right mid lung. I will defer antibiotic management as per ID. 04/05 Patient still with fevers and with fine crackles on left lower lung field and right middle lobe infiltrate as well as leukocytosis with a WBC count of 13 K. I will start the patient IV cefepime and IV Flagyl to cover for possible aspiration pneumonia. Continue to monitor temps and vital signs. (2) PNA (pneumonia) ICD Code: J18.9 Status: Acute Plan: Likely aspiration pneumonia. Patient treated with IV Zosyn Continue supplemental oxygen to keep oxygen saturation >92% Seems to be improving with decreased oxygen requirement. 04/03 Add Iv Vancomycin, repeat cxr. 04/04 IV Zosyn discontinued as per ID. repeat chest x-ray as above shows distant right middle lung infiltrate and interstitial pulmonary infiltrates bilaterally. I will start the patient IV cefepime and IV Flagyl. 04/05 continue vancomycin, start the patient on IV cefepime and IV Flagyl. We'll check pneumococcal and Legionella urine antigen. (3) UTI (urinary tract infection) ICD Code: N39.0 Status: Acute Plan: UA with WBCs and red blood cells in the urine. Yeast also found on urinalysis. Consult was added, patient started an IV Zosyn which was discontinued as per ID recommendations. Urine culture grew a Streptococcus viridans less than 10,000 CFU per mL. (4) Small bowel obstruction ICD Code: K56.69 Status: Resolved Plan: Patient initially placed on nothing by mouth status. KUB on shows small bowel dilatation. General surgery consulted Thought to be secondary to adhesions Treated with stool softeners and lactulose. Continue. Abdominal x-ray on 04/01 showed Improved bowel gas pattern. Surgery cleared patient for discharge, abdominal pain resolved. (5) Hypertension ICD Code: I10 Status: Chronic Plan: Seems to be stable. Continue lisinopril. (6) Seizure disorder ICD Code: G40.909 Status: Chronic Plan: Stable. Continue Dilantin. (7) Agitation ICD Code: R45.1 Status: Acute Plan: Patient's agitation has improved significantly after the patient was started on Seroquel. Continue Haldol when necessary. continue sitter at bedside. (8) Elevated lactic acid level ICD Code: R79.89 Status: Acute Plan: Secondary to severe sepsis due to urinary tract infection. Continue IV antibiotics as above. Elevated lactic acid level resolved after IV fluid administration. Off Iv fluids. (9) Hypokalemia ICD Code: E87.6 Status: Acute Plan: Replace orally and continue to monitor BMP. (10) Hypophosphatemia ICD Code: E83.39 Status: Acute Plan: Likely secondary to poor oral intake. Continue to replace with Neutra- Phos orally. Continue to monitor levels. 04/04 phosphorus much improved at 2.3. Continue to replace and monitor levels. 04/05 phosphorus levels 2.0. Continue to replace with oral Neutra-Phos and continue to monitor phosphorus levels. (11) Hyperglycemia ICD Code: R73.9 Status: Acute Plan: No past medical history of diabetes mellitus. Hemoglobin A1c ordered and pending. Continue SSI with insulin NovoLog and continue to monitor Accu-Cheks Hemoglobin A1c is 6.3 patient has prediabetes. The patient would benefit from being started on metformin on discharge. Will discuss with him. Also hyperglycemia worsened. Will place on SSI with insulin NovoLog. (12) Diarrhea ICD Code: R19.7 Status: Acute Plan: C diff negative. Patient denies diarrhea. Will hold laxatives and stool softeners. (13) Acute hypoxemic respiratory failure ICD Code: J96.01 Status: Acute Plan: Suspect likely secondary to pulmonary edema. Chest x-ray as described above shows possible pulmonary vascular congestion and right middle lobe infiltrate. She was given 1 dose of IV Lasix 1 on 04/04 Continue to monitor supplemental oxygen to keep oxygen saturation more than 92% . Patient continues to have oxygen saturation without oxygen, had O2 sat levels dropped to 84% room air. Patient had an echocardiogram in 2010 from which a reviewed the report. Patient had a pattern of mild LVH with normal EF. Pacer wire noted in the right ventricle. Echocardiogram pending Suspect some degree of congestive heart failure as well which initially seems to be due to acute CHF. 04/05 patient still requiring oxygen and on 3 liters nasal canula. On Iv antibiotics as above. Assessment and Plan DVT prophylaxis: SCDs, continue heparin subcutaneously. Discharge Planning Patient still with persistent fevers. Discharge pending ID consultation, hemoglobin A1c, physical therapy evaluation. Problem Qualifiers (1) PNA (pneumonia): Qualified Code: J69.0 - Aspiration pneumonia of right middle lobe, unspecified aspiration pneumonia type (2) UTI (urinary tract infection): Qualified Code: N30.01 - Acute cystitis with hematuria (3) Hypertension: Qualified Code: I10 - Essential hypertension Riccardo Gan MD Apr 05, 2017 14:40
[2017-04-05] MEDS ORDERED: POTASSIUM CHLORIDE 10 MEQ CONTROLLED RELEASE TAB PO ONE (19:30)
--- NOTE | 2017-04-05 19:48 | HHI.IDPN ---
Note Infectious Disease Note Patient feels okay. Appears less confused and sleepy. TEmp lower. Spiked temp yesterday. Denies aches or pains. No complaints. PAST MEDICAL HISTORY 1. Partial gastrectomy 2. Hernia repair, 3. Cholecystectomy. 4. Pacemaker implantation 5. Seizure disorder, 6. History of cataract surgery 7. Multiple small bowel obstruction episodes 8. Colon cancer, 9. Hypertension. ALLERGIES PHENERGAN MEDICATIONS Current Medications Medications (Trade) Dose Ordered Sig/Sera Route PRN Reason Start Time Stop Time Status Last Admin Dose Admin Sodium Chloride (NS Flush) 2 ml UNSCH PRN IV FLUSH FLUSH AFTER USING IV ACCESS 03/29/17 14:15 Sodium Chloride (NS Flush) 2 ml BID IV FLUSH 03/29/17 21:00 04/05/17 08:15 Acetaminophen (Tylenol) 650 mg Q4H PRN PO Fever, headache, pain 1-4 03/29/17 14:15 04/04/17 15:36 Ondansetron HCl (Zofran Inj) 4 mg Q6H PRN IVP NAUSEA OR VOMITING 03/29/17 14:15 03/30/17 09:29 Naloxone HCl (Narcan Inj) 0.4 mg UNSCH PRN IV SEE LABEL COMMENTS 03/29/17 14:15 Senna/Docusate Sodium (Olimpia-Colace) 1 tab BID PO 03/29/17 21:00 04/04/17 08:27 Magnesium Hydroxide (Milk Of Magnesia Liq) 30 ml Q12H PRN PO MILD - MODERATE CONSTIPATION 03/29/17 14:15 Sennosides (Senokot) 17.2 mg Q12H PRN PO MODERATE - SEVERE CONSTIPATION 03/29/17 14:15 Bisacodyl (Dulcolax Supp) 10 mg DAILY PRN RECTAL SEVERE CONSITIPATION 03/29/17 14:15 Lactulose (Lactulose Liq) 30 ml DAILY PRN PO SEVERE CONSITIPATION 03/29/17 14:15 Lisinopril (Prinivil) 10 mg DAILY PO 03/30/17 09:00 04/05/17 08:15 Phenytoin (Dilantin) 200 mg BID PO 03/29/17 21:00 04/05/17 08:15 Pantoprazole Sodium (Protonix) 20 mg DAILY PO 03/30/17 09:00 04/05/17 08:15 Pravastatin Sodium (Pravachol) 80 mg DAILY PO 03/30/17 09:00 04/05/17 08:14 Morphine Sulfate (Morphine Inj) 4 mg Q3H PRN IV PUSH PAIN 5-10 03/29/17 15:30 04/01/17 23:29 Prochlorperazine Edisylate (Compazine Inj) 5 mg Q4H PRN IV PUSH NAUSEA OR VOMITING 03/29/17 18:45 03/30/17 11:16 Haloperidol Lactate (Haldol Inj) 2 mg Q6H PRN IM AGITATION AND/OR HALLUCINATION 03/30/17 15:30 03/30/17 19:09 Miscellaneous Information Patient in critical care unit? Ass... Q361D .XX 03/31/17 11:00 Fluconazole (Diflucan) 100 mg DAILY PO 04/01/17 14:00 04/05/17 08:15 Trazodone HCl (Desyrel) 50 mg HS PO 04/01/17 21:00 04/04/17 22:06 Potassium Phos/ Sodium Phos (K-Phos Neutral) 250 mg Q6H PO 04/02/17 14:30 04/05/17 14:10 Quetiapine Fumarate 25 mg 25 mg Q12HR PO 04/02/17 21:00 04/05/17 08:15 Pharmacy Profile Note 0 ml @ 0 mls/hr UNSCH OTHER 04/04/17 13:45 Metronidazole 100 ml @ 100 mls/hr Q8H IV 04/05/17 10:00 04/05/17 17:20 Vancomycin HCl/ Sodium Chloride (Vancomycin Inj/ NS 250 ml Inj) 262.5 ml @ 250 mls/hr Q18H IV 04/05/17 14:00 04/05/17 14:10 Miscellaneous Information SPECIFIC LAB TO BE DRAWN:VANCOMY... ONCE ONCE .XX 04/07/17 19:45 04/07/17 19:46 Cefepime HCl/ Sodium Chloride (Maxipime Inj/NS Inj) 100 ml @ 200 mls/hr Q12H IV 04/05/17 21:00 OBJECTIVE: Vital Signs Date Time Temp Pulse Resp B/P Pulse Ox O2 Delivery O2 Flow Rate FiO2 04/05/17 16:00 97.1 103 17 126/83 98 04/05/17 12:00 98.4 96 18 110/85 94 04/05/17 08:00 98.6 101 17 104/87 92 04/05/17 08:00 93 Nasal Cannula 3.00 04/05/17 07:00 3.00 04/05/17 04:52 99.3 100 18 114/70 93 04/05/17 00:38 99.2 106 18 136/88 94 04/04/17 20:43 93 Nasal Cannula 3.00 04/04/17 20:16 100.1 100 18 118/68 94 04/04/17 20:00 Nasal Cannula 2.00 21 Laboratory Tests Test 04/04/17 04/05/17 05:40 09:15 White Blood Count 9.1 TH/MM3 13.2 TH/MM3 Red Blood Count 3.41 MIL/MM3 3.85 MIL/MM3 Hemoglobin 10.9 GM/DL 12.5 GM/DL Hematocrit 32.3 % 36.8 % Mean Corpuscular Volume 94.7 FL 95.5 FL Mean Corpuscular Hemoglobin 32.0 PG 32.3 PG Mean Corpuscular Hemoglobin 33.8 % 33.9 % Concent Red Cell Distribution Width 12.8 % 12.5 % Platelet Count 143 TH/MM3 156 TH/MM3 Mean Platelet Volume 8.3 FL 8.7 FL Neutrophils (%) (Auto) 78.7 % Lymphocytes (%) (Auto) 9.5 % Monocytes (%) (Auto) 7.5 % Eosinophils (%) (Auto) 4.1 % Basophils (%) (Auto) 0.2 % Neutrophils # (Auto) 10.4 TH/MM3 Lymphocytes # (Auto) 1.3 TH/MM3 Monocytes # (Auto) 1.0 TH/MM3 Eosinophils # (Auto) 0.5 TH/MM3 Basophils # (Auto) 0.0 TH/MM3 CBC Comment AUTO DIFF Differential Comment AUTO DIFF CONFIRMED Laboratory Tests Test 04/04/17 04/05/17 05:40 09:15 Sodium Level 143 MEQ/L 139 MEQ/L Potassium Level 3.1 MEQ/L 3.4 MEQ/L Chloride Level 103 MEQ/L 100 MEQ/L Carbon Dioxide Level 30.1 MEQ/L 32.6 MEQ/L Anion Gap 10 MEQ/L 6 MEQ/L Blood Urea Nitrogen 15 MG/DL 18 MG/DL Creatinine 0.71 MG/DL 0.95 MG/DL Estimat Glomerular Filtration 104 ML/MIN 75 ML/MIN Rate Random Glucose 127 MG/DL 265 MG/DL Calcium Level 8.1 MG/DL 8.6 MG/DL Phosphorus Level 2.3 MG/DL 2.0 MG/DL Magnesium Level 1.9 MG/DL 1.9 MG/DL Total Bilirubin 0.6 MG/DL Aspartate Amino Transf 45 U/L (AST/SGOT) Alanine Aminotransferase 38 U/L (ALT/SGPT) Alkaline Phosphatase 130 U/L Total Protein 7.0 GM/DL Albumin 2.3 GM/DL Microbiology Date/Time Procedure Status Source Growth 04/04/17 10:25 Stool Occult Blood (RAJIV) - Final Complete Stool Stool HEMOCCULT NEGATIVE 04/04/17 17:00 Aerobic Blood Culture - Preliminary Resulted Blood Peripheral NO GROWTH IN 1 DAY 04/04/17 17:00 Anaerobic Blood Culture - Preliminary Resulted Blood Peripheral NO GROWTH IN 1 DAY 04/04/17 19:50 Aerobic Blood Culture - Preliminary Resulted Blood Peripheral NO GROWTH IN 1 DAY 04/04/17 19:50 Anaerobic Blood Culture - Preliminary Resulted Blood Peripheral NO GROWTH IN 1 DAY 04/05/17 19:30 Legionella Antigen Received Urine Random Urine Pending 04/05/17 19:30 Streptococcus pneumoniae Antigen (M Received Urine Random Urine Pending Chest X-Ray 04/03/17 0000 Signed Impressions: Service Date/Time: Monday, April 03, 2017 12:51 - CONCLUSION: No significant interval change with the interstitial pulmonary infiltrates bilaterally suggestive of edema. No change in the focal infiltrate in the right midlung. Luis Manuel Slaughter MD Abdomen X-Ray 04/01/17 0600 Signed Impressions: Service Date/Time: Saturday, April 01, 2017 08:25 - CONCLUSION: Improved bowel gas pattern compared to the prior examination. Luis Manuel Slaughter MD Small Bowel X-Ray 03/30/17 0000 Signed Impressions: Service Date/Time: Thursday, March 30, 2017 10:13 - CONCLUSION: 1. Dilated proximal and mid small bowel measuring up to 6 cm. Secondary to vomiting and placement of nasogastric tube, the procedure was not continued. Evaluation for small bowel obstruction is incomplete. 2. Gastroesophageal reflux. 3. Diverticulum arising from the second portion of the duodenum. Landon Chen MD ADDENDUM: This addendum is created to clarify the timing of the small bowel follow-through examination. The final image obtained was at 4 hours post contrast ingestion, not 2 hours as indicated above. However, even at 4 hours contrast did not reach the colon. Landon Chen MD Abdomen/Pelvis CT 03/29/17 1202 Signed Impressions: Service Date/Time: Wednesday, March 29, 2017 13:05 - CONCLUSION: 1. Dilatation of multiple proximal small bowel loops with distal decompression characteristic of a small bowel obstruction. There is some fecalization of small bowel contents proximal to the obstruction. 2. Partial colectomy on the right. Colonic diverticulosis without diverticulitis. 3. Postoperative cholecystectomy with residual biliary ductal dilatation similar to 2016. 4. Patchy airspace disease at the lung bases. Andrae Kay MD PHYSICAL EXAMINATION GENERAL: No acute distress. HEENT: Head is atraumatic. Extraocular movements grossly intact, pupils reactive to light without icterus. Oropharynx moist mucosa. No lesions. NECK: Supple. No adenopathy. LUNGS: Decreased breath sounds. HEART: Distant S1 and S2 without audible murmurs. ABDOMEN: Bowel sounds present but markedly diminished, distended, soft, nontender. EXTREMITIES: No clubbing, cyanosis or edema. SKIN: No rash. NEUROLOGIC: No gross focal findings. The patient is alert and oriented. IMPRESSION 1. Fever in patient with small bowel obstruction. 2. Cough without sputum production and abnormal chest x-ray suggesting possible pneumonia. The patient was felt to have possibly aspirated a few days ago. 3. Urine culture with viridans strep group less than 10,000 colonies and without significant symptomatology. 4. Possible drug fever since the patient has had normal white blood cell count despite elevation of the temperature. RECOMMENDATIONS 1. Continue Metronidazole, Cefepime and diflucan started yesterday. 2. Continue vancomycin for now 3. Follow blood culture. 4. Follow the temperature and clinical status. 5. Antibiotic taper depending on culture results. Hoang Fitzgerald MD Apr 05, 2017 19:48
[2017-04-05] MEDS: CEFEPIME INJ 2,000 MG in SODIUM CHLORIDE 0.9% INJ 100 ML IV SCH (21:56)
[2017-04-05] MEDS: traZODone HCL 50 MG TAB PO SCH (21:58)
[2017-04-06] MEDS: metroNIDAZOLE 500 MG INJ 100 ML IV SCH ×3 (02:14→17:16)
[2017-04-06] MEDS: POTASSIUM PHOSPHATE/SODIUM PHOSPHATE 250 MG TAB PO SCH ×4 (02:14→21:45)
[2017-04-06 07:20] VITALS: O2SAT 92
[2017-04-06 08:00] VITALS: BP 114/71; PULSE 91; RESP 16; TEMP 98.5; O2SAT 91
[2017-04-06] MEDS: VANCOMYCIN INJ 1,250 MG in SODIUM CHLOR 0.9% 250 ML INJ 250 ML IV SCH (08:20)
[2017-04-06] MEDS: DOCUSATE SODIUM 50 MG/SENNA 8.6 MG TAB PO SCH ×2 (08:21→21:45)
[2017-04-06] MEDS: PHENYTOIN SODIUM 100 MG CAP PO SCH ×2 (08:21→21:46)
[2017-04-06] MEDS: FLUCONAZOLE 100 MG TAB PO SCH (08:21)
[2017-04-06] MEDS: PANTOPRAZOLE SOD 20 MG DELAYED RELEASE TAB PO SCH (08:21)
[2017-04-06] MEDS: SODIUM CHLORIDE 0.9% FLUSH 10 ML FLUSH IV FLUSH SCH ×2 (08:21→21:46)
[2017-04-06] MEDS: PRAVASTATIN SOD 80 MG TAB PO SCH (08:21)
[2017-04-06] MEDS: QUEtiapine FUMARATE 25 MG TAB PO SCH ×2 (08:21→21:45)
[2017-04-06] MEDS: LISINOPRIL 10 MG TAB PO SCH (08:23)
[2017-04-06] MEDS: CEFEPIME INJ 2,000 MG in SODIUM CHLORIDE 0.9% INJ 100 ML IV SCH (09:35)
[2017-04-06 12:00] VITALS: BP 114/76; PULSE 103; RESP 16; TEMP 97; O2SAT 98
[2017-04-06 13:43] LABS: AUTOMATED NEUTROPHIL # 5.7 TH/MM3 (1.8-7.7); BASOPHIL % 0.2 % (0.0-2.0); EOSINOPHIL # 0.6 TH/MM3 (0-0.4); EOSINOPHIL % 7.9 % (0.0-4.0); HEMO FLAGS DIFF FINAL; LYMPH % 12.2 % (9.0-44.0); MEAN CELL VOLUME 95.1 FL (80.0-100.0); MEAN CORPUSCULAR HEMOGLOBIN 32.2 PG (27.0-34.0); MEAN CORPUSCULAR HGB CONC 33.9 % (32.0-36.0); MONO % 7.4 % (0.0-8.0); NEUT % 72.3 % (16.0-70.0); PLATELET COUNT 202 TH/MM3 (150-450); RED BLOOD COUNT 3.57 MIL/MM3 (4.50-5.90); RED CELL DISTRIBUTION WIDTH 12.5 % (11.6-17.2); WHITE BLOOD COUNT 7.9 TH/MM3 (4.0-11.0)
[2017-04-06 13:50] LABS: CHLORIDE 101 MEQ/L (98-107); SODIUM (NA) 140 MEQ/L (136-145)
[2017-04-06 13:54] LABS: ANION GAP 7 MEQ/L (5-15); BICARBONATE 32.1 MEQ/L (21.0-32.0); BLOOD UREA NITROGEN 14 MG/DL (7-18)
[2017-04-06 13:57] LABS: ALT (GPT) 32 U/L (12-78); AST (GOT) 36 U/L (15-37); GLOMERULAR FILTRATION RATE 95 ML/MIN (>89)
[2017-04-06 13:59] LABS: TOTAL BILIRUBIN ADULT 0.5 MG/DL (0.2-1.0)
[2017-04-06 14:00] LABS: ALKALINE PHOSPHATASE 113 U/L (45-117)
[2017-04-06] MEDS ORDERED: DEXTROSE 50% IN WATER 50 ML VIAL(D50) IV PRN (14:30)
--- NOTE | 2017-04-06 14:30 | HHI.PR ---
Subjective Remarks as per sitter, no further behavioral issues and patient coughing much less and feeling stronger today. denies cp/sob denies fevers/chills Objective Vitals Vital Signs Date Time Temp Pulse Resp B/P Pulse Ox O2 Delivery O2 Flow Rate FiO2 04/06/17 12:00 97.0 103 16 114/76 98 04/06/17 08:00 98.5 91 16 114/71 91 04/06/17 07:20 92 Nasal Cannula 3.00 04/06/17 07:10 Nasal Cannula 3.00 21 04/05/17 20:49 99.4 100 18 142/87 95 04/05/17 20:05 93 Nasal Cannula 3.00 04/05/17 20:00 95 Nasal Cannula 3.00 04/05/17 16:00 97.1 103 17 126/83 98 I/O 04/05/17 04/05/17 04/05/17 04/06/17 04/06/17 04/06/17 07:00 15:00 23:00 07:00 15:00 23:00 Intake Total 250 ml 214 ml 417 ml 457 ml 453 ml Output Total 250 ml Balance 250 ml 214 ml 417 ml 207 ml 453 ml Intake Oral 240 ml IV Total 250 ml 214 ml 417 ml 217 ml 453 ml Output Urine Total 250 ml # Voids 2 1 # Bowel Movements 2 Result Diagram: 04/06/17 1301 04/06/17 1301 Imaging Last Impressions Chest X-Ray 04/03/17 0000 Signed Impressions: Service Date/Time: Monday, April 03, 2017 12:51 - CONCLUSION: No significant interval change with the interstitial pulmonary infiltrates bilaterally suggestive of edema. No change in the focal infiltrate in the right midlung. Luis Manuel Slaughter MD Abdomen X-Ray 04/01/17 0600 Signed Impressions: Service Date/Time: Saturday, April 01, 2017 08:25 - CONCLUSION: Improved bowel gas pattern compared to the prior examination. Luis Manuel Slaughter MD Small Bowel X-Ray 03/30/17 0000 Signed Impressions: Service Date/Time: Thursday, March 30, 2017 10:13 - CONCLUSION: 1. Dilated proximal and mid small bowel measuring up to 6 cm. Secondary to vomiting and placement of nasogastric tube, the procedure was not continued. Evaluation for small bowel obstruction is incomplete. 2. Gastroesophageal reflux. 3. Diverticulum arising from the second portion of the duodenum. Landon Chen MD ADDENDUM: This addendum is created to clarify the timing of the small bowel follow-through examination. The final image obtained was at 4 hours post contrast ingestion, not 2 hours as indicated above. However, even at 4 hours contrast did not reach the colon. Landon Chen MD Abdomen/Pelvis CT 03/29/17 1202 Signed Impressions: Service Date/Time: Wednesday, March 29, 2017 13:05 - CONCLUSION: 1. Dilatation of multiple proximal small bowel loops with distal decompression characteristic of a small bowel obstruction. There is some fecalization of small bowel contents proximal to the obstruction. 2. Partial colectomy on the right. Colonic diverticulosis without diverticulitis. 3. Postoperative cholecystectomy with residual biliary ductal dilatation similar to 2016. 4. Patchy airspace disease at the lung bases. Andrae Kay MD Objective Remarks GENERAL: AOX3, NAD. SKIN: Warm and dry. HEAD: Normocephalic. EYES: No scleral icterus. No injection or drainage. NECK: Supple, trachea midline. No JVD or lymphadenopathy. CARDIOVASCULAR: Regular rate and rhythm without murmurs, gallops, or rubs. RESPIRATORY: Crackles in the left base. No wheezing or rhonchi auscultated. Rest of lung patel clear to auscultation with good air entry. GASTROINTESTINAL: Abdomen soft, non-tender. No appreciable bowel sound. MUSCULOSKELETAL: No cyanosis, or edema. BACK: Nontender without obvious deformity. No CVA tenderness. Procedures None. Medications and IVs Current Medications Medications (Trade) Dose Ordered Sig/Sera Route Start Time Stop Time Status Last Admin (NS Flush) 2 ml UNSCH PRN IV FLUSH 03/29/17 14:15 (NS Flush) 2 ml BID IV FLUSH 03/29/17 21:00 04/06/17 08:21 (Tylenol) 650 mg Q4H PRN PO 03/29/17 14:15 04/04/17 15:36 (Zofran Inj) 4 mg Q6H PRN IVP 03/29/17 14:15 03/30/17 09:29 (Narcan Inj) 0.4 mg UNSCH PRN IV 03/29/17 14:15 (Olimpia-Colace) 1 tab BID PO 03/29/17 21:00 04/06/17 08:21 (Milk Of Magnesia Liq) 30 ml Q12H PRN PO 03/29/17 14:15 (Senokot) 17.2 mg Q12H PRN PO 03/29/17 14:15 (Dulcolax Supp) 10 mg DAILY PRN RECTAL 03/29/17 14:15 (Lactulose Liq) 30 ml DAILY PRN PO 03/29/17 14:15 (Prinivil) 10 mg DAILY PO 03/30/17 09:00 04/06/17 08:23 (Dilantin) 200 mg BID PO 03/29/17 21:00 04/06/17 08:21 (Protonix) 20 mg DAILY PO 03/30/17 09:00 04/06/17 08:21 (Pravachol) 80 mg DAILY PO 03/30/17 09:00 04/06/17 08:21 (Morphine Inj) 4 mg Q3H PRN IV PUSH 03/29/17 15:30 04/01/17 23:29 (Compazine Inj) 5 mg Q4H PRN IV PUSH 03/29/17 18:45 03/30/17 11:16 (Haldol Inj) 2 mg Q6H PRN IM 03/30/17 15:30 03/30/17 19:09 Miscellaneous Information Patient in critical care unit? Ass... Q361D .XX 03/31/17 11:00 (Diflucan) 100 mg DAILY PO 04/01/17 14:00 04/06/17 08:21 (Desyrel) 50 mg HS PO 04/01/17 21:00 04/05/17 21:58 (K-Phos Neutral) 250 mg Q6H PO 04/02/17 14:30 04/06/17 08:21 Quetiapine Fumarate 25 mg 25 mg Q12HR PO 04/02/17 21:00 04/06/17 08:21 Pharmacy Profile Note 0 ml @ 0 mls/hr UNSCH OTHER 04/04/17 13:45 Metronidazole 100 ml @ 100 mls/hr Q8H IV 04/05/17 10:00 04/06/17 10:25 (Vancomycin Inj/ NS 250 ml Inj) 262.5 ml @ 250 mls/hr Q18H IV 04/05/17 14:00 04/06/17 08:20 Miscellaneous Information SPECIFIC LAB TO BE DRAWN:VANCOMY... ONCE ONCE .XX 04/07/17 19:45 04/07/17 19:46 (Maxipime Inj/NS Inj) 100 ml @ 200 mls/hr Q12H IV 04/05/17 21:00 04/06/17 09:35 Urinary Catheter: No Vascular Central Line Catheter: No A/P Problem List: (1) Severe sepsis ICD Code: A41.9 Status: Acute Plan: Mr. Banks is a pleasant 89 year old male with a history of subtotal gastrectomy who presents to the ED due to diffuse abdominal pain, nausea, vomiting that started last night. He denies any fever, chills. His last BM was two days ago. He reports no flatus. CT abd/pelvis shows multiple proximal small bowel dilatation indicating small bowel obstruction. Severe sepsis present on admission, patient with heart rate 100, respiratory rate more than 20 and elevated lactic acid of 2.2. Chest x-ray reviewed by me shows slight increase interstitial prominence and ill -defined focal region of increased opacity in the right middle lung. Patient has shortness of breath and is hypoxemic requiring elevated levels of oxygen likely secondary to aspiration pneumonia reflected by right mid lung infiltrate. Cefepime discontinued on 04/01 and patient started on IV Zosyn to cover for aspiration pneumonia Continue to supplement oxygen to keep an oxygen saturation more than 92% 04/02 continue IV Zosyn, continue to provide supplemental oxygen to keep oxygen saturation > 92%. Patient still tachycardic and slightly tachypneic. Infectious disease. Fever possibly secondary to drug reaction as per ID. Repeat chest x-ray reviewed by me shows no interval significant change with interstitial pulmonary infiltrates bilaterally suggestive of edema. No change in focal infiltrate in the right mid lung. I will defer antibiotic management as per ID. 04/05 Patient still with fevers and with fine crackles on left lower lung field and right middle lobe infiltrate as well as leukocytosis with a WBC count of 13 K. I will start the patient IV cefepime and IV Flagyl to cover for possible aspiration pneumonia. Continue to monitor temps and vital signs. 04/06 Temps better. No fevers overnight. Heart rate improving. (2) PNA (pneumonia) ICD Code: J18.9 Status: Acute Plan: Likely aspiration pneumonia. Patient treated with IV Zosyn Continue supplemental oxygen to keep oxygen saturation >92% Seems to be improving with decreased oxygen requirement. Vancomycin added on 04/03. Repeat chest x-ray showed possible right middle lung infiltrate and interstitial pulmonary infiltrates bilaterally. Patient was started in IV cefepime and IV Flagyl to cover for possible aspiration pneumonia on 04/05. 04/06 Legionella and pneumococcal antigen negative. Seems to be improvement on patient's vehicle status. Continue IV vancomycin, IV cefepime and IV Flagyl. Antibiotics as per ID recommendations. Blood cultures negative to date. (3) UTI (urinary tract infection) ICD Code: N39.0 Status: Acute Plan: UA with WBCs and red blood cells in the urine. Yeast also found on urinalysis. Consult was added, patient started an IV Zosyn which was discontinued as per ID recommendations. Urine culture grew a Streptococcus viridans less than 10,000 CFU per mL. (4) Small bowel obstruction ICD Code: K56.69 Status: Resolved Plan: Patient initially placed on nothing by mouth status. KUB on shows small bowel dilatation. General surgery consulted Thought to be secondary to adhesions Treated with stool softeners and lactulose. Continue. Abdominal x-ray on 04/01 showed Improved bowel gas pattern. Surgery cleared patient for discharge, abdominal pain resolved. (5) Hypertension ICD Code: I10 Status: Chronic Plan: Seems to be stable. Continue lisinopril. (6) Seizure disorder ICD Code: G40.909 Status: Chronic Plan: Stable. Continue Dilantin. (7) Agitation ICD Code: R45.1 Status: Acute Plan: Patient's agitation has improved significantly after the patient was started on Seroquel. Continue Haldol when necessary. 04/06 Discontinue sitter. (8) Elevated lactic acid level ICD Code: R79.89 Status: Acute Plan: Secondary to severe sepsis due to urinary tract infection. Continue IV antibiotics as above. Elevated lactic acid level resolved after IV fluid administration. Off Iv fluids. (9) Hypokalemia ICD Code: E87.6 Status: Resolved Plan: K replaced orally. Levels normal now. Continue to monitor BMP. (10) Hypophosphatemia ICD Code: E83.39 Status: Acute Plan: Likely secondary to poor oral intake. Continue to replace with Neutra- Phos orally. Continue to monitor levels. 04/04 phosphorus much improved at 2.3. Continue to replace and monitor levels. 04/05 phosphorus levels 2.0. Continue to replace with oral Neutra-Phos and continue to monitor phosphorus levels. (11) Hyperglycemia ICD Code: R73.9 Status: Resolved Plan: No past medical history of diabetes mellitus. Hemoglobin A1c ordered and pending. Continue SSI with insulin NovoLog and continue to monitor Accu-Cheks Hemoglobin A1c is 6.3 patient has prediabetes. 04/06 patient with severe exacerbation of hypoglycemia with blood sugars in the 200s. I will change the diet to diabetic diet. I will consult dietitian for nutrition education. I will also consult community health educator since patient is going to an imminent diabetes. Start the patient on SSI with insulin Novolog, will also start on Metformin and glipizide. (12) Diarrhea ICD Code: R19.7 Status: Acute Plan: C diff negative. Patient denies diarrhea. Will hold laxatives and stool softeners. (13) Acute hypoxemic respiratory failure ICD Code: J96.01 Status: Acute Plan: Suspect likely secondary to pulmonary edema. Chest x-ray as described above shows possible pulmonary vascular congestion and right middle lobe infiltrate. She was given 1 dose of IV Lasix 1 on 04/04 Continue to monitor supplemental oxygen to keep oxygen saturation more than 92% . Patient continues to have oxygen saturation without oxygen, had O2 sat levels dropped to 84% room air. Patient had an echocardiogram in 2010 from which a reviewed the report. Patient had a pattern of mild LVH with normal EF. Pacer wire noted in the right ventricle. Echocardiogram pending Suspect some degree of congestive heart failure as well which initially seems to be due to acute CHF. 04/06 patient still requiring oxygen and on 3 liters nasal canula. On Iv antibiotics as above. Assessment and Plan DVT prophylaxis: SCDs, continue heparin subcutaneously. Discharge Planning DC pending ID consult, cephalization of blood sugars, diabetic and dietitian consult. Problem Qualifiers (1) PNA (pneumonia): Qualified Code: J69.0 - Aspiration pneumonia of right middle lobe, unspecified aspiration pneumonia type (2) UTI (urinary tract infection): Qualified Code: N30.01 - Acute cystitis with hematuria (3) Hypertension: Qualified Code: I10 - Essential hypertension Riccardo Gan MD Apr 06, 2017 14:29
[2017-04-06] MEDS: glipiZIDE 5 MG TAB PO SCH (15:10)
[2017-04-06 16:00] VITALS: BP 131/80; PULSE 76; RESP 16; TEMP 96.6; O2SAT 96
[2017-04-06] MEDS: metFORMIN HCL 850 MG TAB PO SCH (17:15)
--- NOTE | 2017-04-06 18:16 | HHI.IDPN ---
Note Infectious Disease Note Patient feels and looks better. More alert. Afebrile WBC lower. Denies aches or pains. No complaints. PAST MEDICAL HISTORY 1. Partial gastrectomy 2. Hernia repair, 3. Cholecystectomy. 4. Pacemaker implantation 5. Seizure disorder, 6. History of cataract surgery 7. Multiple small bowel obstruction episodes 8. Colon cancer, 9. Hypertension. ALLERGIES PHENERGAN ANTIBIOTICS: Cefepime Vancomycin. Flagyl. OBJECTIVE: Vital Signs Date Time Temp Pulse Resp B/P Pulse Ox O2 Delivery O2 Flow Rate FiO2 04/06/17 16:00 96.6 76 16 131/80 96 04/06/17 12:00 97.0 103 16 114/76 98 04/06/17 08:00 98.5 91 16 114/71 91 04/06/17 07:20 92 Nasal Cannula 3.00 04/06/17 07:10 Nasal Cannula 3.00 21 04/05/17 20:49 99.4 100 18 142/87 95 04/05/17 20:05 93 Nasal Cannula 3.00 04/05/17 20:00 95 Nasal Cannula 3.00 04/05/17 04/05/17 04/06/17 15:00 23:00 07:00 Intake Total 214 ml 417 ml 457 ml Output Total 250 ml Balance 214 ml 417 ml 207 ml Intake Oral 240 ml IV Total 214 ml 417 ml 217 ml Output Urine Total 250 ml # Voids 1 # Bowel Movements 2 Laboratory Tests Test 04/05/17 04/06/17 09:15 13:01 White Blood Count 13.2 TH/MM3 7.9 TH/MM3 Red Blood Count 3.85 MIL/MM3 3.57 MIL/MM3 Hemoglobin 12.5 GM/DL 11.5 GM/DL Hematocrit 36.8 % 34.0 % Mean Corpuscular Volume 95.5 FL 95.1 FL Mean Corpuscular Hemoglobin 32.3 PG 32.2 PG Mean Corpuscular Hemoglobin 33.9 % 33.9 % Concent Red Cell Distribution Width 12.5 % 12.5 % Platelet Count 156 TH/MM3 202 TH/MM3 Mean Platelet Volume 8.7 FL 7.9 FL Neutrophils (%) (Auto) 78.7 % 72.3 % Lymphocytes (%) (Auto) 9.5 % 12.2 % Monocytes (%) (Auto) 7.5 % 7.4 % Eosinophils (%) (Auto) 4.1 % 7.9 % Basophils (%) (Auto) 0.2 % 0.2 % Neutrophils # (Auto) 10.4 TH/MM3 5.7 TH/MM3 Lymphocytes # (Auto) 1.3 TH/MM3 1.0 TH/MM3 Monocytes # (Auto) 1.0 TH/MM3 0.6 TH/MM3 Eosinophils # (Auto) 0.5 TH/MM3 0.6 TH/MM3 Basophils # (Auto) 0.0 TH/MM3 0.0 TH/MM3 CBC Comment AUTO DIFF DIFF FINAL Differential Comment AUTO DIFF CONFIRMED Laboratory Tests Test 04/05/17 04/05/17 04/06/17 09:15 19:43 13:01 Sodium Level 139 MEQ/L 140 MEQ/L Potassium Level 3.4 MEQ/L 4.0 MEQ/L Chloride Level 100 MEQ/L 101 MEQ/L Carbon Dioxide Level 32.6 MEQ/L 32.1 MEQ/L Anion Gap 6 MEQ/L 7 MEQ/L Blood Urea Nitrogen 18 MG/DL 14 MG/DL Creatinine 0.95 MG/DL 0.77 MG/DL Estimat Glomerular Filtration 75 ML/MIN 95 ML/MIN Rate Random Glucose 265 MG/DL 214 MG/DL Calcium Level 8.6 MG/DL 8.5 MG/DL Phosphorus Level 2.0 MG/DL Magnesium Level 1.9 MG/DL Total Bilirubin 0.6 MG/DL 0.5 MG/DL Aspartate Amino Transf 45 U/L 36 U/L (AST/SGOT) Alanine Aminotransferase 38 U/L 32 U/L (ALT/SGPT) Alkaline Phosphatase 130 U/L 113 U/L Total Protein 7.0 GM/DL 6.7 GM/DL Albumin 2.3 GM/DL 2.1 GM/DL Lactic Acid Level 1.4 mmol/L Microbiology Date/Time Procedure Status Source Growth 04/04/17 10:25 Stool Occult Blood (RAJIV) - Final Complete Stool Stool HEMOCCULT NEGATIVE 04/04/17 17:00 Aerobic Blood Culture - Preliminary Resulted Blood Peripheral NO GROWTH IN 2 DAYS 04/04/17 17:00 Anaerobic Blood Culture - Preliminary Resulted Blood Peripheral NO GROWTH IN 2 DAYS 04/04/17 19:50 Aerobic Blood Culture - Preliminary Resulted Blood Peripheral NO GROWTH IN 2 DAYS 04/04/17 19:50 Anaerobic Blood Culture - Preliminary Resulted Blood Peripheral NO GROWTH IN 2 DAYS 04/05/17 19:30 Legionella Antigen - Final Complete Urine Random Urine PRESUMPTIVE NEGATIVE FOR LEGIONELLA P... 04/05/17 19:30 Streptococcus pneumoniae Antigen (M - Final Complete Urine Random Urine PRESUMPTIVE NEGATIVE FOR STREPTOCOCCU... IMAGING: Chest X-Ray 04/03/17 0000 Signed Impressions: Service Date/Time: Monday, April 03, 2017 12:51 - CONCLUSION: No significant interval change with the interstitial pulmonary infiltrates bilaterally suggestive of edema. No change in the focal infiltrate in the right midlung. Luis Manuel Slaughter MD Abdomen X-Ray 04/01/17 0600 Signed Impressions: Service Date/Time: Saturday, April 01, 2017 08:25 - CONCLUSION: Improved bowel gas pattern compared to the prior examination. Luis Manuel Slaughter MD Small Bowel X-Ray 03/30/17 0000 Signed Impressions: Service Date/Time: Thursday, March 30, 2017 10:13 - CONCLUSION: 1. Dilated proximal and mid small bowel measuring up to 6 cm. Secondary to vomiting and placement of nasogastric tube, the procedure was not continued. Evaluation for small bowel obstruction is incomplete. 2. Gastroesophageal reflux. 3. Diverticulum arising from the second portion of the duodenum. Landon Chen MD ADDENDUM: This addendum is created to clarify the timing of the small bowel follow-through examination. The final image obtained was at 4 hours post contrast ingestion, not 2 hours as indicated above. However, even at 4 hours contrast did not reach the colon. Landon Chen MD Abdomen/Pelvis CT 03/29/17 1202 Signed Impressions: Service Date/Time: Wednesday, March 29, 2017 13:05 - CONCLUSION: 1. Dilatation of multiple proximal small bowel loops with distal decompression characteristic of a small bowel obstruction. There is some fecalization of small bowel contents proximal to the obstruction. 2. Partial colectomy on the right. Colonic diverticulosis without diverticulitis. 3. Postoperative cholecystectomy with residual biliary ductal dilatation similar to 2016. 4. Patchy airspace disease at the lung bases. Andrae Kay MD PHYSICAL EXAMINATION GENERAL: No acute distress. HEENT: Pupils reactive to light without icterus. Oropharynx moist mucosa. No lesions. NECK: Supple. No adenopathy. LUNGS: Decreased breath sounds. Clear. HEART: Distant S1 and S2 without audible murmurs. ABDOMEN: Bowel sounds present but markedly diminished, distended, soft, nontender. EXTREMITIES: No clubbing, cyanosis or edema. SKIN: No rash. NEUROLOGIC: No gross focal findings. The patient is alert and oriented. IMPRESSION 1. Fever in patient with small bowel obstruction. Temp improved. 2. Cough without sputum production and abnormal chest x-ray suggesting possible pneumonia. The patient was felt to have possibly aspirated a few days ago. 3. Urine culture with viridans strep group less than 10,000 colonies and without significant symptomatology. 4. Possible drug fever since the patient has had normal white blood cell count despite elevation of the temperature. RECOMMENDATIONS 1. Stop Metronidazole, Cefepime and Diflucan. 2. Stop vancomycin. 3. Start PO Ceftin. If no fever he can be discharged on PO Ceftin x 10 days. Hoang Fitzgerald MD Apr 06, 2017 18:16
[2017-04-06 20:00] VITALS: BP 111/77; PULSE 109; RESP 18; TEMP 98.1; O2SAT 92
[2017-04-06] MEDS: traZODone HCL 50 MG TAB PO SCH (21:45)
[2017-04-06] MEDS: CEFUROXIME AXETIL 500 MG TAB PO SCH (21:45)
[2017-04-07] VITALS (7 sets, daily range): BP systolic 119–143; BP diastolic 75–89; PULSE 89–99; RESP 18–20; TEMP 96.6–99.3; O2SAT 93–100
[2017-04-07] MEDS: ACETAMINOPHEN 325 MG TAB PO PRN (02:30)
[2017-04-07] MEDS: POTASSIUM PHOSPHATE/SODIUM PHOSPHATE 250 MG TAB PO SCH ×4 (02:30→20:54)
[2017-04-07] MEDS: DOCUSATE SODIUM 50 MG/SENNA 8.6 MG TAB PO SCH ×2 (08:38→20:54)
[2017-04-07] MEDS: glipiZIDE 5 MG TAB PO SCH (08:38)
[2017-04-07] MEDS: LISINOPRIL 10 MG TAB PO SCH (08:38)
[2017-04-07] MEDS: PHENYTOIN SODIUM 100 MG CAP PO SCH ×2 (08:38→20:54)
[2017-04-07] MEDS: QUEtiapine FUMARATE 25 MG TAB PO SCH ×2 (08:38→20:54)
[2017-04-07] MEDS: CEFUROXIME AXETIL 500 MG TAB PO SCH ×2 (08:38→20:54)
[2017-04-07] MEDS: PANTOPRAZOLE SOD 20 MG DELAYED RELEASE TAB PO SCH (08:38)
[2017-04-07] MEDS: PRAVASTATIN SOD 80 MG TAB PO SCH (08:38)
[2017-04-07] MEDS: metFORMIN HCL 850 MG TAB PO SCH ×2 (08:39→17:47)
[2017-04-07] MEDS: SODIUM CHLORIDE 0.9% FLUSH 10 ML FLUSH IV FLUSH SCH ×2 (08:51→20:55)
[2017-04-07] MEDS ORDERED: CEFU1TAB20 PO (15:25)
[2017-04-07] MEDS ORDERED: QUET1TAB7 PO (15:25)
[2017-04-07] MEDS ORDERED: TRAZ50TA12 PO (15:25)
[2017-04-07] MEDS ORDERED: GLIP5 PO (15:25)
[2017-04-07] MEDS ORDERED: METF850 PO (15:25)
--- NOTE | 2017-04-07 15:26 | HHI.DCPOC ---
Discharge Care Plan Diagnosis: (1) PNA (pneumonia) (2) Hypophosphatemia (3) Small bowel obstruction (4) Severe sepsis (5) Elevated lactic acid level (6) Diarrhea (7) Acute hypoxemic respiratory failure (8) Hypokalemia (9) Hypertension (10) UTI (urinary tract infection) (11) Sepsis (12) Agitation (13) Seizure disorder (14) Fall Goals to Promote Your Health * To prevent worsening of your condition and complications * To maintain your health at the optimal level Directions to Meet Your Goals Take your medications as prescribed Follow your dietary instruction Follow activity as directed Keep your appointments as scheduled Take your immunizations and boosters as scheduled If your symptoms worsen call your PCP, if no PCP go to Urgent Care Center or Emergency Room Smoking is Dangerous to Your Health. Avoid second hand smoke Call the 24-hour hour crisis hotline for domestic abuse at Riccardo Gan MD Apr 07, 2017 15:26
[2017-04-07] MEDS ORDERED: VANCOMYCIN TROUGH ONE (19:45)
[2017-04-07] MEDS: traZODone HCL 50 MG TAB PO SCH (20:54)
[2017-04-07] MEDS ORDERED: OXYGENDME NAS.CANULA (21:09)
--- NOTE | 2017-04-07 21:13 | HHI.PR ---
Objective Vitals Vital Signs Date Time Temp Pulse Resp B/P Pulse Ox O2 Delivery O2 Flow Rate FiO2 04/07/17 19:30 97 Nasal Cannula 2.00 04/07/17 16:00 97.9 91 20 143/89 100 04/07/17 15:52 2.00 04/07/17 12:00 97.3 89 20 133/86 93 04/07/17 08:45 Nasal Cannula 3.00 Humidified 04/07/17 08:00 99.3 99 20 119/81 93 04/07/17 07:38 94 Nasal Cannula 3.00 04/07/17 04:00 Nasal Cannula 3.00 Humidified 04/07/17 00:00 Nasal Cannula 3.00 Humidified 04/07/17 00:00 98.0 94 18 131/75 94 I/O 04/06/17 04/06/17 04/06/17 04/07/17 04/07/17 04/07/17 07:00 15:00 23:00 07:00 15:00 23:00 Intake Total 457 ml 1173 ml 240 ml 660 ml Output Total 250 ml 360 ml Balance 207 ml 813 ml 240 ml 660 ml Intake Oral 240 ml 720 ml 240 ml 660 ml IV Total 217 ml 453 ml Output Urine Total 250 ml 360 ml # Voids 1 3 3 # Bowel Movements 1 1 2 Result Diagram: 04/06/17 1301 04/07/17 0527 Objective Remarks GENERAL: AOX3, NAD. SKIN: Warm and dry. HEAD: Normocephalic. EYES: No scleral icterus. No injection or drainage. NECK: Supple, trachea midline. No JVD or lymphadenopathy. CARDIOVASCULAR: Regular rate and rhythm without murmurs, gallops, or rubs. RESPIRATORY: Crackles in the left base. No wheezing or rhonchi auscultated. Rest of lung patel clear to auscultation with good air entry. GASTROINTESTINAL: Abdomen soft, non-tender. No appreciable bowel sound. MUSCULOSKELETAL: No cyanosis, or edema. BACK: Nontender without obvious deformity. No CVA tenderness. Procedures None. A/P Problem List: (1) Severe sepsis ICD Code: A41.9 Status: Acute (2) PNA (pneumonia) ICD Code: J18.9 Status: Acute (3) UTI (urinary tract infection) ICD Code: N39.0 Status: Acute (4) Small bowel obstruction ICD Code: K56.69 Status: Resolved (5) Hypertension ICD Code: I10 Status: Chronic (6) Seizure disorder ICD Code: G40.909 Status: Chronic (7) Agitation ICD Code: R45.1 Status: Acute (8) Elevated lactic acid level ICD Code: R79.89 Status: Acute (9) Hypokalemia ICD Code: E87.6 Status: Resolved (10) Hypophosphatemia ICD Code: E83.39 Status: Acute (11) Hyperglycemia ICD Code: R73.9 Status: Resolved (12) Diarrhea ICD Code: R19.7 Status: Acute (13) Acute hypoxemic respiratory failure ICD Code: J96.01 Status: Acute Assessment and Plan DVT prophylaxis: SCDs, continue heparin subcutaneously. Discharge Planning DC pending ID consult, cephalization of blood sugars, diabetic and dietitian consult. Problem Qualifiers (1) PNA (pneumonia): Qualified Code: J69.0 - Aspiration pneumonia of right middle lobe, unspecified aspiration pneumonia type (2) UTI (urinary tract infection): Qualified Code: N30.01 - Acute cystitis with hematuria (3) Hypertension: Qualified Code: I10 - Essential hypertension Riccardo Gan MD Apr 07, 2017 21:13
[2017-04-08] VITALS: BP 110/78; PULSE 113; RESP 18; TEMP 98.7; O2SAT 94
[2017-04-08] MEDS: POTASSIUM PHOSPHATE/SODIUM PHOSPHATE 250 MG TAB PO SCH ×3 (02:38→15:02)
[2017-04-08 07:45] VITALS: O2SAT 92
[2017-04-08 08:00] VITALS: BP 132/71; PULSE 77; RESP 18; TEMP 98.1; O2SAT 95
[2017-04-08] MEDS: DOCUSATE SODIUM 50 MG/SENNA 8.6 MG TAB PO SCH (09:00)
[2017-04-08] MEDS: CEFUROXIME AXETIL 500 MG TAB PO SCH (09:00)
[2017-04-08] MEDS: glipiZIDE 5 MG TAB PO SCH (09:06)
[2017-04-08] MEDS: QUEtiapine FUMARATE 25 MG TAB PO SCH (09:06)
[2017-04-08] MEDS: metFORMIN HCL 850 MG TAB PO SCH (09:06)
[2017-04-08] MEDS: PRAVASTATIN SOD 80 MG TAB PO SCH (09:07)
[2017-04-08] MEDS: LISINOPRIL 10 MG TAB PO SCH (09:07)
[2017-04-08] MEDS: PHENYTOIN SODIUM 100 MG CAP PO SCH (09:07)
[2017-04-08] MEDS: SODIUM CHLORIDE 0.9% FLUSH 10 ML FLUSH IV FLUSH SCH (09:07)
[2017-04-08] MEDS: PANTOPRAZOLE SOD 20 MG DELAYED RELEASE TAB PO SCH (09:07)
--- NOTE | 2017-04-08 12:21 | HHI.DS ---
Discharge Summary Admission Date Mar 29, 2017 at 16:03 Discharge Date: Apr 08, 2017 Admitting Diagnosis small bowel obstruction (1) Severe sepsis ICD Code: A41.9 (2) PNA (pneumonia) ICD Code: J18.9 (3) UTI (urinary tract infection) ICD Code: N39.0 (4) Small bowel obstruction ICD Code: K56.69 (5) Hypertension ICD Code: I10 (6) Seizure disorder ICD Code: G40.909 (7) Agitation ICD Code: R45.1 (8) Elevated lactic acid level ICD Code: R79.89 (9) Hypokalemia ICD Code: E87.6 (10) Hypophosphatemia ICD Code: E83.39 (11) Hyperglycemia ICD Code: R73.9 (12) Diarrhea ICD Code: R19.7 (13) Acute hypoxemic respiratory failure ICD Code: J96.01 Procedures None. Brief History - From Admission Mr. Banks is a pleasant 89-year-old male with a history of partial gastrectomy, bowel resection who presents to the emergency department on 2016 due to abdominal pain, nausea and vomiting. He started having diffuse cramping abdominal pain last night. No radiation of abdominal pain. No diarrhea but he reports intermittent nausea and vomiting. No chest pain, shortness of breath, fever or chills. No dysuria. At the time of this interview , patient complains of abdominal pain and nausea. CBC/BMP: 04/06/17 1301 04/07/17 0527 Significant Findings Laboratory Tests Test 04/06/17 13:01 Red Blood Count 3.57 MIL/MM3 (4.50-5.90) Hemoglobin 11.5 GM/DL (13.0-17.0) Hematocrit 34.0 % (39.0-51.0) Neutrophils (%) (Auto) 72.3 % (16.0-70.0) Eosinophils (%) (Auto) 7.9 % (0.0-4.0) Eosinophils # (Auto) 0.6 TH/MM3 (0-0.4) Carbon Dioxide Level 32.1 MEQ/L (21.0-32.0) Random Glucose 214 MG/DL (74-106) Albumin 2.1 GM/DL (3.4-5.0) Imaging Last Impressions Chest X-Ray 04/03/17 0000 Signed Impressions: Service Date/Time: Monday, April 03, 2017 12:51 - CONCLUSION: No significant interval change with the interstitial pulmonary infiltrates bilaterally suggestive of edema. No change in the focal infiltrate in the right midlung. Luis Manuel Slaguhter MD Abdomen X-Ray 04/01/17 0600 Signed Impressions: Service Date/Time: Saturday, April 01, 2017 08:25 - CONCLUSION: Improved bowel gas pattern compared to the prior examination. Luis Manuel Slaughter MD Small Bowel X-Ray 03/30/17 0000 Signed Impressions: Service Date/Time: Thursday, March 30, 2017 10:13 - CONCLUSION: 1. Dilated proximal and mid small bowel measuring up to 6 cm. Secondary to vomiting and placement of nasogastric tube, the procedure was not continued. Evaluation for small bowel obstruction is incomplete. 2. Gastroesophageal reflux. 3. Diverticulum arising from the second portion of the duodenum. Landon Chen MD ADDENDUM: This addendum is created to clarify the timing of the small bowel follow-through examination. The final image obtained was at 4 hours post contrast ingestion, not 2 hours as indicated above. However, even at 4 hours contrast did not reach the colon. Landon Chen MD Abdomen/Pelvis CT 03/29/17 1202 Signed Impressions: Service Date/Time: Wednesday, March 29, 2017 13:05 - CONCLUSION: 1. Dilatation of multiple proximal small bowel loops with distal decompression characteristic of a small bowel obstruction. There is some fecalization of small bowel contents proximal to the obstruction. 2. Partial colectomy on the right. Colonic diverticulosis without diverticulitis. 3. Postoperative cholecystectomy with residual biliary ductal dilatation similar to 2016. 4. Patchy airspace disease at the lung bases. Andrae Kay MD PE at Discharge GENERAL: AOX3, NAD. SKIN: Warm and dry. HEAD: Normocephalic. EYES: No scleral icterus. No injection or drainage. NECK: Supple, trachea midline. No JVD or lymphadenopathy. CARDIOVASCULAR: Regular rate and rhythm without murmurs, gallops, or rubs. RESPIRATORY: Crackles in the left base. No wheezing or rhonchi auscultated. Rest of lung patel clear to auscultation with good air entry. GASTROINTESTINAL: Abdomen soft, non-tender. No appreciable bowel sound. MUSCULOSKELETAL: No cyanosis, or edema. BACK: Nontender without obvious deformity. No CVA tenderness. Pt update on day of discharge Patient reports is feeling well. Looking forward to rehabilitation. No chest pain or shortness of breath. Hospital Course 89 year old male with a history of subtotal gastrectomy who presents to the ED due to diffuse abdominal pain, nausea, vomiting that started the night prior to admission. He denies any fever, chills. He reports no flatus. CT abd/pelvis shows multiple proximal small bowel dilatation indicating small bowel obstruction. Patient was found to have severe sepsis secondary to pneumonia. Patient treated with IV antibiotics under the guidance of infectious disease and is discharged on oral antibiotics to complete the course. Regarding small bowel obstruction, the patient was treated conservatively and this resolved. The patient was also treated for electrolyte disturbance and hyperglycemia. He was started on metformin for prediabetes. Patient overall condition improved and is discharged to intermediate facility to continue rehabilitation prior to eventually going home. Pt Condition on Discharge: Stable Discharge Disposition: Discharge to SNF Discharge Time: > 30 minutes Discharge Instructions DIET: Follow Instructions for: Diabetic Diet Activities you can perform: See Additionl Instruction Other Activity Instructions: as per PT Follow up Referrals: PCP Follow-up - 1 Week New Medications: Oxygen (O2) (Oxygen (O2)) Device 2 LITER MILAGROS.CANULA CONTINUOUS Oxygen Concentrator Portable Gaseous 2 L/min via Nasal Canula Continuous For 99 months Prevent Hypoxemia #2 CYLINDER Cefuroxime (Cefuroxime) 500 Mg Tab 500 MG PO Q12HR Infection #20 TAB Metformin (Glucophage) 850 Mg Tab 850 MG PO BIDPC Blood Sugar Management #62 TAB Quetiapine (Quetiapine) 25 Mg Tab 25 MG PO Q12HR Agitation #62 TAB Trazodone (Trazodone) 50 Mg Tab 50 MG PO HS Insomnia #31 TAB Continued Medications: Lisinopril (Lisinopril) 10 Mg Tab 10 MG PO DAILY #30 Ref 0 TAB Omeprazole (Omeprazole) 20 Mg Tab 20 MG PO DAILY #30 Ref 0 TAB Phenytoin Extended (Dilantin) 100 Mg Cap 200 MG PO BID Control Seizures #90 Ref 0 CAP Simvastatin (Zocor) 40 Mg Tab 40 MG PO DAILY Cholesterol Management #30 Ref 0 TAB Alexsander Zheng MD Apr 08, 2017 12:21
== END 2017-04-08 17:29 | DRG 871 ==
LOC: PHED 11:59 → PHEDA 14:08 → PH3A 15:14 → OBSVTOIN 16:03 → PHICU 03-31 08:37 → PH3B 04-02 19:30
PROVIDERS: ADMIT Family Medicine; ATTEND Family Medicine
DX: A41.9 Sepsis, unspecified organism (principal); J69.0 Pneumonitis due to inhalation of food and vomit; J96.01 Acute respiratory failure with hypoxia; K56.5 Intestinal adhesions [bands] with obstruction (postinfection); K56.60 Unspecified intestinal obstruction; N39.0 Urinary tract infection, site not specified; R65.20 Severe sepsis without septic shock; I48.91 Unspecified atrial fibrillation; F03.90 Unspecified dementia, unspecified severity, without behavioral disturbance, psychotic disturbance, mood disturbance, and anxiety; G40.909 Epilepsy, unspecified, not intractable, without status epilepticus; E11.65 Type 2 diabetes mellitus with hyperglycemia; I10 Essential (primary) hypertension; Z90.3 Acquired absence of stomach [part of]; E78.5 Hyperlipidemia, unspecified; F41.9 Anxiety disorder, unspecified; Z85.038 Personal history of other malignant neoplasm of large intestine; Z95.0 Presence of cardiac pacemaker; Z79.01 Long term (current) use of anticoagulants; Z87.11 Personal history of peptic ulcer disease; Z87.891 Personal history of nicotine dependence; K21.9 Gastro-esophageal reflux disease without esophagitis; M19.90 Unspecified osteoarthritis, unspecified site; K57.90 Diverticulosis of intestine, part unspecified, without perforation or abscess without bleeding; R45.1 Restlessness and agitation; E83.39 Other disorders of phosphorus metabolism; E87.6 Hypokalemia; R74.0 Nonspecific elevation of levels of transaminase and lactic acid dehydrogenase [LDH]
CPT/HCPCS: 36600; 71010; 74000; 74020; 74177; 74250; 76937; 80048; 80053; 80202; 81001; 82272; 82378; 82565; 82805; 82948; 83036; 83605; 83690; 83735; 84100; 85025; 85027; 85610; 85730; 87040; 87086; 87449; 87493; 87641; 93005; 94620; 94664; C9113; J0131; J0692; J0780; J1630; J1940; J2060; J2270; J2405; J2543; J3370; J7030; J7050; Q9963; Q9967